=== PATIENT | female | born 1945 | race Caucasian/White ===

== ENCOUNTER → 2018-10-10 08:17 | Outpatient (CLI) | payer MEDICARE, OTHER, SELFPAY ==
--- NOTE | 2018-10-10 08:20 | BI_ITS ---
MAMMOGRAPHY - BILATERAL SCREENING REASON FOR EXAM: Female, 73 years old. Routine annual screening examination. PERTINENT HISTORY: Non-contributory. TECHNIQUE: Digital bilateral breast madi (3D mammographic acquisition) in the CC and MLO projections. 2-D mediolateral oblique (MLO) and craniocaudad (CC) views of both breasts were obtained. CAD: Full Field Digital Mammography with Computer Added Detection was performed. COMPARISON: Comparison is made with prior study dated September 07, 2017 and August 27, 2016. FINDINGS: Breast Composition: The breasts are heterogeneously dense, which may obscure small masses. There are no dominant masses or suspicious calcifications. Stable small bilateral benign appearing axillary lymph nodes. Stable 4.6 mm calcified nodule in the retroareolar region of the left breast. No other significant abnormalities are identified. There has been no significant change since the prior study. BI/SCREENING MAMM (CAD), BILAT IMPRESSION: Stable bilateral screening mammogram. Yearly follow-up mammogram recommended. (A) ASSESSMENT CATEGORY: BIRADS Category 2: Benign. A letter regarding these results will be sent to the patient by the facility within 30 days. Approximately 10% of breast cancers are not detected by mammography. A normal mammogram should not delay biopsy of a clinically suspicious abnormality. [id number] Electronically Signed: Peña Burgess MD at 9:20 EST Tel [phone], Service support ,
--- OUTSIDE RECORDS SUMMARY | 2019-01-11 19:12 | XMS RPT_ITS ---
:1945 Author Organization [facility] Care Team Providers Name Role Phone HUGH YIP Referring Unavailable HUGH YIP Attending Unavailable HUGH YIP Referring Unavailable MILKA WEAVER (ZULMA) Attending Unavailable HUGH YIP Referring Unavailable SAMIR SAHNI ([place]ULMA) Attending Unavailable HUGH YIP Referring Unavailable Joaquin Krause Attending Unavailable Hugh Yip Primary Care Unavailable PROBLEMS PROBLEMS DATE TYPE CONDITION / CODE ATTENDING STATUS SOURCE 09/17/2015 Active Mixed hyperlipidemia NA Active [facility] / E78.2(ICD-10) [facility] [place] Repository 09/17/2015 Active Hypothyroidism, NA Active [facility] unspecified / [facility] [place] E03.9(ICD-10) Repository 09/17/2015 Active Essential (primary) NA Active [facility] hypertension / [facility] [place] I10(ICD-10) Repository PROCEDURES PROCEDURES No Procedure Records FoundRESULTS RESULTS PROGRESS Observed: 10/11/2018 Status: COMPLETED Source: [facility] 10:30 AM [facility] HNO ID: [id number] Author: Samir(Colleen) Bora Service: (none) Author Type: Physician Re Recording Mixer Type: Progress Notes Filed: 10/11/2018 11:49 AM Note Text: Chief Complaint Patient presents with: Recheck: Patient is here 6 month follow up HPI Sheridan Alvarado is a 73 year old female who presents here today for Chronic Medical Conditions.. patient with hx of HTN, hyperlipidemia, hypothyroidism and Migraines. No specific concerns today. Overall doing well. Denies chest pain, shortness of breath, Still gets headaches once every 3-6 months. Depends on stress or sleep patterns. Usually will get relief with OTC. Has imitrex but hasn't used it in long time Past medical history, appointments, medications, allergies reviewed. Previous Medical History PAST MEDICAL HISTORY Diagnosis Date - Acute gastritis - Eczema 04/11/2018 - Elevated blood pressure - Hypothyroidism previously took armor thyroid, stable off medication - Migraine - OBESITY NOS - Osteoporosis intolerant of bisphosphonates - Palpitations 04/08/2010 - Rosacea - Seasonal allergies Previous Surgical History PAST SURGICAL HISTORY Procedure Laterality Date - COLONOSCOP W/ OR W/O BRSH SPEC 11/16/08 repeat due 2018 - EGD W/O OR W/BRUSH/WASH 11/12/99 EGD - FECAL OCCULT BLOOD TEST 03/24/2017 - TONSILLECTOMY HX ~1968 - TOTAL ABDOM HYSTERECTOMY 1986 menorrhagia; 1 ovary intact Family History FAMILY HISTORY Problem Relation Age of Onset - Cancer Father lung, smoker - Alzheimer's Disease Mother - Ischemic Heart Disease Paternal Grandfather - other (guillain barre) Son patient refuses flu shots now Patient Allergies ALLERGIES Allergen Reactions - Sulfa (Sulfonamide * Rash - Boniva [Ibandronate] Other: See Comments Diarrhea, leg cramps - Fosamax [Alendronat* Other: See Comments Leg cramps Current Medications Current Outpatient Prescriptions on File Prior to Visit: CHOLECALCIFEROL (VITAMIN D3) 400 UNIT TAB Take two (2) by mouth once daily. ibuprofen 600 mg ORAL tablet Take 1 tablet by mouth every 6 hours as needed for Pain. magnesium oxide 400 mg cap Take by mouth once daily. propranolol ER (INDERAL LA) 80 mg 24 hr capsule Take 1 capsule by mouth once daily. mometasone (ELOCON) 0.1 % cream Apply to areas twice a day. On for 4 days and off for 3 days. Repeat as needed. SUMAtriptan (IMITREX) 100 mg tablet Take 1 tablet by mouth as directed. START AT ONSET OF HEADACHE. MAY REPEAT DOSE AFTER 2 HOURS. Max of 2 tabs in 24 hrs triamcinolone acetonide (KENALOG) 0.1 % cream Apply 1 application to affected area three times daily. Apply sparingly to area for rash/itching. No current facility-administered medications on file prior to visit. 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 Gardens and walks. Review of Symptoms REVIEW OF SYSTEMS GENERAL: No weight loss, malaise or fevers NECK: Negative for lumps, goiter, pain and significant neck swelling RESPIRATORY: Negative for cough, hemoptysis, wheezing, COPD, dyspnea or shortness of breath CARDIOVASCULAR: Negative for chest pain, leg swelling, CHF or palpitations GI: No nausea, vomiting, or diarrhea and No heartburn or reflux symptoms NEURO: No history of headaches, syncope, paralysis, seizures or tremors EXAM: BP 124/72 Pulse 72 Resp 14 Wt 87.5 kg (193 lb) BMI 33.13 kg/m? Last 4 Encounter Wt Readings: Date: Wt: 10/11/2018 87.5 kg (193 lb) 05/27/2018 87.5 kg (193 lb) 04/11/2018 88.9 kg (196 lb) 09/22/2017 88 kg (194 lb) General Appearance: Well appearing, alert, in no acute distress, well-hydrated, well nourished. obese. Neck: Supple, no adenopathy; thyroid symmetric, normal size, no bruits. Lungs: lungs clear to auscultation. No wheezing, rhonchi, rales. Heart: RRR without murmur, gallop, or rubs. No ectopy. Abdomen: Normal abdominal exam, Abdomen soft, non-tender. Bowel sounds normal. No masses, organomegaly. Extremities: No deformities, edema, skin discoloration, clubbing or cyanosis. Good capillary refill. . Peripheral Pulses: Normal. Health Maintenance List BP CONTROLLED (<130/80) due on 1965 HEPATITIS C SCREENING due on 1991 COLORECTAL CANCER SCREENING,SEE MODIFIER due on 11/16/2018 ANNUAL PCP TEAM CHRONIC DISEASE VISIT due on 04/11/2019 MAMMOGRAM due on 10/10/2019 DIABETES SCREEN due on 10/06/2021 LIPID SCREEN due on 10/06/2023 DTAP,TDAP,TD(3 - Td) due on 09/29/2027 BONE DENSITY Completed ADULT PREVNAR-13 Completed INFLUENZA Completed PNEUMOVAX AGE 65 AND OVER WITH 5YR LOOKBACK Completed Data reviewed Component Latest Ref Rng AND Units 10/06/2018 Protein, Total 6.3 - 8.0 g/dL 6.4 Albumin 3.9 - 4.9 g/dL 4.3 Calcium 8.5 - 10.2 mg/dL 9.4 Bilirubin, Total 0.2 - 1.3 mg/dL 0.5 Alkaline Phosphatase 34 - 123 U/L 68 AST 13 - 35 U/L 20 Glucose 74 - 99 mg/dL 92 BUN 7 - 21 mg/dL 18 Creatinine 0.58 - 0.96 mg/dL 0.64 Sodium 136 - 144 mmol/L 141 Potassium 3.7 - 5.1 mmol/L 4.1 Chloride 97 - 105 mmol/L 102 CO2 22 - 30 mmol/L 29 Anion Gap 9 - 18 mmol/L 10 ALT 7 - 38 U/L 18 eGFR- >60 eGFR-All Other Races . >60 Color Yellow Yellow Clarity Clear Cloudy (A) Glucose, Urine Negative mg/dL Negative Bilirubin, Urine Negative Negative Ketones, Urine Negative Negative Specific [place], Ur 1.005 - 1.030 1.020 Hemoglobin/Blood,Ur Negative Negative pH, Urine 4.5 - 8.0 6.0 Protein, Urine Negative mg/dL 30 (A) Urobilinogen Normal Normal Nitrites Negative Negative Leukest Negative 3+ (A) Comments SEE COMMENT Urine Neo Comment SEE COMMENT WBC, Urine 0 - 5 /HPF 6-10 (A) RBC, Urine 0 - 3 /HPF 0-3 Epithelial Cells /HPF SEE COMMENT Cholesterol, Total <200 mg/dL 195 Triglyceride <150 mg/dL 71 HDL Cholesterol >39 mg/dL 66 LDL Cholesterol <100 mg/dL 115 (H) Non HDL Cholesterol <130 mg/dL 129 Fasting Time hrs 12 VLDL Cholesterol <30 mg/dL 14 TC:HDL Ratio <5.10 2.95 LDL:HDL Ratio <2.54 1.74 TSH 0.400 - 5.500 uU/mL 3.230 ASSESSMENT/PLAN: 1. Essential hypertension - ICD9: 401.9, ICD10: I10 (primary diagnosis) - good control - Continue current medication(s) - Recommended regular aerobic exercise. - Recommend home blood pressure monitoring, to bring results in on next visit - Goal of BP <130/80 2. Hypothyroidism (acquired) - ICD9: 244.9, ICD10: E03.9 Patient has been euthyroid for years without medication. - LIPID PANEL BASIC 3. Mixed hyperlipidemia - ICD9: 272.2, ICD10: E78.2 - good control - Encouraged following a low carbohydrate, healthy oil intake diet. - Continue current therapy. - LIPID PANEL BASIC 4. Migraine without aura and without status migrainosus, not intractable - ICD9: 346.10, ICD10: G43.009 stable 5. Class 1 obesity due to excess calories without serious comorbidity with body mass index (BMI) of 33.0 to 33.9 in adult - ICD9: 278.00, V85.33, ICD10: E66.09, Z68.33 Follow up in 6 months for physical Return sooner as needed. SAMIR SAHNI PA-C CNOV Observed: 10/11/2018 Status: COMPLETED Source: [facility] 10:20 AM [facility] REPOSITORY Office Visit (FAMPWS) SHERIDAN ALVARADO ([id number]) 1945 F Date Time Provider Department 10/11/18 10:20 AM АЛЕКСАНДР SAHNI) FAMYelenaWS During your visit today, we recorded the following information about you: Pulse Respiration Blood pressure Weight 72/minute 14/minute 124/72 87.5 kg SAMIR SAHNI PA-C 10/11/2018 11:49 AM Signed Chief Complaint Patient presents with: Recheck: Patient is here 6 month follow up HPI Sheridan Alvarado is a 73 year old female who presents here today for Chronic Medical Conditions.. patient with hx of HTN, hyperlipidemia, hypothyroidism and Migraines. No specific concerns today. Overall doing well. Denies chest pain, shortness of breath, Still gets headaches once every 3-6 months. Depends on stress or sleep patterns. Usually will get relief with OTC. Has imitrex but hasn't used it in long time Past medical history, appointments, medications, allergies reviewed. Previous Medical History PAST MEDICAL HISTORY Diagnosis Date - Acute gastritis - Eczema 04/11/2018 - Elevated blood pressure - Hypothyroidism previously took armor thyroid, stable off medication - Migraine - OBESITY NOS - Osteoporosis intolerant of bisphosphonates - Palpitations 04/08/2010 - Rosacea - Seasonal allergies Previous Surgical History PAST SURGICAL HISTORY Procedure Laterality Date - COLONOSCOP W/ OR W/O BRSH SPEC 11/16/08 repeat due 2018 - EGD W/O OR W/BRUSH/WASH 11/12/99 EGD - FECAL OCCULT BLOOD TEST 03/24/2017 - TONSILLECTOMY HX ~1968 - TOTAL ABDOM HYSTERECTOMY 1986 menorrhagia; 1 ovary intact Family History FAMILY HISTORY Problem Relation Age of Onset - Cancer Father lung, smoker - Alzheimer's Disease Mother - Ischemic Heart Disease Paternal Grandfather - other (guillain barre) Son patient refuses flu shots now Patient Allergies ALLERGIES Allergen Reactions - Sulfa (Sulfonamide * Rash - Boniva [Ibandronate] Other: See Comments Diarrhea, leg cramps - Fosamax [Alendronat* Other: See Comments Leg cramps Current Medications Current Outpatient Prescriptions on File Prior to Visit: CHOLECALCIFEROL (VITAMIN D3) 400 UNIT TAB Take two (2) by mouth once daily. ibuprofen 600 mg ORAL tablet Take 1 tablet by mouth every 6 hours as needed for Pain. magnesium oxide 400 mg cap Take by mouth once daily. propranolol ER (INDERAL LA) 80 mg 24 hr capsule Take 1 capsule by mouth once daily. mometasone (ELOCON) 0.1 % cream Apply to areas twice a day. On for 4 days and off for 3 days. Repeat as needed. SUMAtriptan (IMITREX) 100 mg tablet Take 1 tablet by mouth as directed. START AT ONSET OF HEADACHE. MAY REPEAT DOSE AFTER 2 HOURS. Max of 2 tabs in 24 hrs triamcinolone acetonide (KENALOG) 0.1 % cream Apply 1 application to affected area three times daily. Apply sparingly to area for rash/itching. No current facility-administered medications on file prior to visit. 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 Gardens and walks. Review of Symptoms REVIEW OF SYSTEMS GENERAL: No weight loss, malaise or fevers NECK: Negative for lumps, goiter, pain and significant neck swelling RESPIRATORY: Negative for cough, hemoptysis, wheezing, COPD, dyspnea or shortness of breath CARDIOVASCULAR: Negative for chest pain, leg swelling, CHF or palpitations GI: No nausea, vomiting, or diarrhea and No heartburn or reflux symptoms NEURO: No history of headaches, syncope, paralysis, seizures or tremors EXAM: BP 124/72 Pulse 72 Resp 14 Wt 87.5 kg (193 lb) BMI 33.13 kg/m? Last 4 Encounter Wt Readings: Date: Wt: 10/11/2018 87.5 kg (193 lb) 05/27/2018 87.5 kg (193 lb) 04/11/2018 88.9 kg (196 lb) 09/22/2017 88 kg (194 lb) General Appearance: Well appearing, alert, in no acute distress, well-hydrated, well nourished. obese. Neck: Supple, no adenopathy; thyroid symmetric, normal size, no bruits. Lungs: lungs clear to auscultation. No wheezing, rhonchi, rales. Heart: RRR without murmur, gallop, or rubs. No ectopy. Abdomen: Normal abdominal exam, Abdomen soft, non-tender. Bowel sounds normal. No masses, organomegaly. Extremities: No deformities, edema, skin discoloration, clubbing or cyanosis. Good capillary refill. . Peripheral Pulses: Normal. Health Maintenance List BP CONTROLLED (<130/80) due on 1965 HEPATITIS C SCREENING due on 1991 COLORECTAL CANCER SCREENING,SEE MODIFIER due on 11/16/2018 ANNUAL PCP TEAM CHRONIC DISEASE VISIT due on 04/11/2019 MAMMOGRAM due on 10/10/2019 DIABETES SCREEN due on 10/06/2021 LIPID SCREEN due on 10/06/2023 DTAP,TDAP,TD(3 - Td) due on 09/29/2027 BONE DENSITY Completed ADULT PREVNAR-13 Completed INFLUENZA Completed PNEUMOVAX AGE 65 AND OVER WITH 5YR LOOKBACK Completed Data reviewed Component Latest Ref Rng AND Units 10/06/2018 Protein, Total 6.3 - 8.0 g/dL 6.4 Albumin 3.9 - 4.9 g/dL 4.3 Calcium 8.5 - 10.2 mg/dL 9.4 Bilirubin, Total 0.2 - 1.3 mg/dL 0.5 Alkaline Phosphatase 34 - 123 U/L 68 AST 13 - 35 U/L 20 Glucose 74 - 99 mg/dL 92 BUN 7 - 21 mg/dL 18 Creatinine 0.58 - 0.96 mg/dL 0.64 Sodium 136 - 144 mmol/L 141 Potassium 3.7 - 5.1 mmol/L 4.1 Chloride 97 - 105 mmol/L 102 CO2 22 - 30 mmol/L 29 Anion Gap 9 - 18 mmol/L 10 ALT 7 - 38 U/L 18 eGFR- >60 eGFR-All Other Races . >60 Color Yellow Yellow Clarity Clear Cloudy (A) Glucose, Urine Negative mg/dL Negative Bilirubin, Urine Negative Negative Ketones, Urine Negative Negative Specific [place], Ur 1.005 - 1.030 1.020 Hemoglobin/Blood,Ur Negative Negative pH, Urine 4.5 - 8.0 6.0 Protein, Urine Negative mg/dL 30 (A) Urobilinogen Normal Normal Nitrites Negative Negative Leukest Negative 3+ (A) Comments SEE COMMENT Urine Neo Comment SEE COMMENT WBC, Urine 0 - 5 /HPF 6-10 (A) RBC, Urine 0 - 3 /HPF 0-3 Epithelial Cells /HPF SEE COMMENT Cholesterol, Total <200 mg/dL 195 Triglyceride <150 mg/dL 71 HDL Cholesterol >39 mg/dL 66 LDL Cholesterol <100 mg/dL 115 (H) Non HDL Cholesterol <130 mg/dL 129 Fasting Time hrs 12 VLDL Cholesterol <30 mg/dL 14 TC:HDL Ratio <5.10 2.95 LDL:HDL Ratio <2.54 1.74 TSH 0.400 - 5.500 uU/mL 3.230 ASSESSMENT/PLAN: 1. Essential hypertension - ICD9: 401.9, ICD10: I10 (primary diagnosis) - good control - Continue current medication(s) - Recommended regular aerobic exercise. - Recommend home blood pressure monitoring, to bring results in on next visit - Goal of BP <130/80 2. Hypothyroidism (acquired) - ICD9: 244.9, ICD10: E03.9 Patient has been euthyroid for years without medication. - LIPID PANEL BASIC 3. Mixed hyperlipidemia - ICD9: 272.2, ICD10: E78.2 - good control - Encouraged following a low carbohydrate, healthy oil intake diet. - Continue current therapy. - LIPID PANEL BASIC 4. Migraine without aura and without status migrainosus, not intractable - ICD9: 346.10, ICD10: G43.009 stable 5. Class 1 obesity due to excess calories without serious comorbidity with body mass index (BMI) of 33.0 to 33.9 in adult - ICD9: 278.00, V85.33, ICD10: E66.09, Z68.33 Follow up in 6 months for physical Return sooner as needed. COLLEEN MURPHY PA-C 10/11/2018 10:49 AM Signed Follow up in 6 months for physical Please get fasting cholesterol labs prior. Return sooner as needed. Referring Provider: HUGH YIP [[id number]] Allergies As of Date: 10/11/2018 Noted Allergy Reaction SULFA (SULFONAMIDE ANTIBIOTICS) 06/23/2005 2 - Rash BONIVA (IBANDRONATE) 10/22/2011 14 - Other: See Comments Comments: Diarrhea, leg cramps FOSAMAX (ALENDRONATE SODIUM) 10/22/2011 14 - Other: See Comments Comments: Leg cramps Date Reviewed: 10/11/2018 Reviewed by: Agustin Sahni - Fully Assessed Reason for Visit: Recheck [92] Cmt: Patient is here 6 month follow up Primary Visit Diagnosis:Essential hypertension [I10] Other Visit Diagnoses:Hypothyroidism (acquired) [E03.9] Mixed hyperlipidemia [E78.2] Migraine without aura and without status migrainosus, not intractable [G43.009] Class 1 obesity due to excess calories without serious comorbidity with body mass index (BMI) of 33.0 to 33.9 in adult [E66.09, Z68.33] Order(s):propranolol ER (INDERAL LA) 80 mg 24 hr capsuleTake 1 capsule by mouth once daily.Disp: 90 capsuleRfl: 3 LIPID PANEL BASIC [SQLIPB] Order #: [id number] FUTURE Prescriptions as of 10/11/2018 Sig: * CHOLECALCIFEROL (VITAMIN D3) * Take two (2) by mouth once da* * IBUPROFEN 600 MG TABLET Take 1 tablet by mouth every * MAGNESIUM OXIDE 400 MG CAPSULE Take by mouth once daily. PROPRANOLOL ER 80 MG CAPSULE,* Take 1 capsule by mouth once * SUMATRIPTAN 100 MG TABLET Take 1 tablet by mouth as dir* Problem List As Of Date 10/11/2018 Noted Resolved COMMON MIGRAINE [346.1] INVALID FOR*01/13/2008 Rosacea [L71.9] INVALID FOR* More... More... Osteoporosis, unspecified [M81.0] INVALID FOR* Unspecified sinusitis (chronic) [J32.9] INVALID FOR*10/22/2011 Diarrhea [R19.7] INVALID FOR*10/22/2011 Foot pain, right [M79.671] INVALID FOR*06/22/2012 Essential hypertension [I10] INVALID FOR* Hypothyroidism (acquired) [E03.9] INVALID FOR* Mixed hyperlipidemia [E78.2] INVALID FOR* Migraine without aura and without status migrai*INVALID FOR* Colon cancer screening [Z12.11] INVALID FOR* Well adult exam [Z00.00] INVALID FOR* More... Medicare annual wellness visit, subsequent [Z00*INVALID FOR* More... Class 1 obesity due to excess calories without *INVALID FOR* Eczema [L30.9] INVALID FOR* Other instructions from your clinician: Follow up in 6 months for physical Please get fasting cholesterol labs prior. Return sooner as needed. Prescriptions ordered this encounter Disp Refills Start End PROPRANOLOL ER 80 MG CAPSULE,24 HR,E* 90 c* 3 10/11/2018 Class: Print RX Route: ORAL Sig: Take 1 capsule by mouth once daily. Medications Discontinued During This Encounter mometasone (ELOCON) 0.1 % cream 15 g 1 04/11/2018 10/11/2018 Sig: Apply to areas twice a day. On for 4 days and off for 3 days. Repeat as needed. Disc: Reason for discontinue is not on file. triamcinolone acetonide (KENALOG) 0.* 80 g 0 05/27/2018 10/11/2018 Route: TOPICAL Sig: Apply 1 application to affected area three times daily. Apply sparingly to area for rash/itching. Disc: Reason for discontinue is not on file. propranolol ER (INDERAL LA) 80 mg 24* 90 c* 3 09/22/2017 10/11/2018 Class: Print RX Route: ORAL Sig: Take 1 capsule by mouth once daily. Disc: Reason for discontinue is not on file. Disposition: Return in about 6 months (around 04/11/2019) for Medicare Physical. Follow-up and Disposition History Recorded Encounter Status:Closed by SAMIR ROCHA on 10/11/18 SCREENING MAMM (CAD), Observed: 10/10/2018 Status: F Source: MAYUR MUNOZ 8:20 AM [facility] REPOSITORY [facility] Imaging Services [address] [place] [address] SCREENING MAMM (CAD), BILAT MR#: [id number] Acct: [id number] Name: SHERIDAN ALVARADO Rep #: [id number] : 1945 F 73 From: Peña Burgess MD PCP: Hugh Yip MD Status: REG CLI Study: SCREENING MAMM (CAD), BILAT Date of Exam: 10/10/18 Exam# [id number] Ordering Dr: Joaquin Krause MD MAMMOGRAPHY - BILATERAL SCREENING REASON FOR EXAM: Female, 73 years old. Routine annual screening examination. PERTINENT HISTORY: Non-contributory. TECHNIQUE: Digital bilateral breast madi (3D mammographic acquisition) in the CC and MLO projections. 2-D mediolateral oblique (MLO) and craniocaudad (CC) views of both breasts were obtained. CAD: Full Field Digital Mammography with Computer Added Detection was performed. COMPARISON: Comparison is made with prior study dated September 07, 2017 and August 27, 2016. FINDINGS: Breast Composition: The breasts are heterogeneously dense, which may obscure small masses. There are no dominant masses or suspicious calcifications. Stable small bilateral benign appearing axillary lymph nodes. Stable 4.6 mm calcified nodule in the retroareolar region of the left breast. No other significant abnormalities are identified. There has been no significant change since the prior study. BI/SCREENING MAMM (CAD), BILAT IMPRESSION: Stable bilateral screening mammogram. Yearly follow-up mammogram recommended. (A) ASSESSMENT CATEGORY: BIRADS Category 2: Benign. A letter regarding these results will be sent to the patient by the facility within 30 days. Approximately 10% of breast cancers are not detected by mammography. A normal mammogram should not delay biopsy of a clinically suspicious abnormality. [id number] Electronically Signed: Peña Burgess MD at 9:20 EST Tel [phone], Service support , CC: Hugh Yip MD; Joaquin Krause MD Preschool Teacher'S Assistant: Signed COMP METABOLIC PANEL Collected: 10/06/2018 Status: F Source: [facility] 8:34 AM [facility] REPOSITORY TYPE CODE TESTS RESULT OUT OF REFERENCE UNITS RANGE LAB TP 6.3-8.0 g/dL Protein, Total 6.4 LAB ALB 3.9-4.9 g/dL Albumin 4.3 LAB CA 8.5-10.2 mg/dL Calcium, Total 9.4 LAB TBIL 0.2-1.3 mg/dL Bilirubin, Total 0.5 LAB ALKP 34-123 U/L Alkaline Phosphatase 68 LAB AST 13-35 U/L AST 20 LAB GLU 74-99 mg/dL Glucose 92 Result Comment: The [place] Diabetes Association (ADA) provides guidance for cutoff values for fasting glucose and random glucose. The ADA defines fasting as no caloric intake for at least 8 hours. Fas ting plasma glucose results between 100 to 125 mg/dL indicate increased risk for diabetes (prediabetes). Fasting plasma glucose results greater than or equal to 126 mg/dL meet the criteria for diagnosis of diabetes. In the absence of unequivocal hyperglycemia, results should be confirmed by repeat testing. In a patient with classic symptoms of hyperglycemia or hyperglycemic crisis, random plasma glucose results greater than or equal to 200 mg/dL meet the criteria for diagnosis of diabetes. Reference: Standards of Medical Care in Diabetes 2016, [place] [employer] Association. Diabetes Care. 2016.39(Suppl 1). LAB BUN 7-21 mg/dL BUN 18 LAB CRET 0.58-0.96 mg/dL Creatinine 0.64 LAB NA 136-144 mmol/L Sodium 141 LAB K 3.7-5.1 mmol/L Potassium 4.1 LAB CL 97-105 mmol/L Chloride 102 LAB CO2 22-30 mmol/L CO2 29 LAB AGAP 9-18 mmol/L Anion Gap 10 LAB ALT 7-38 U/L ALT 18 LAB GFRAA eGFR- Amer. >60 LAB GFRNAA . eGFR-All Other Races >60 Result Comment: eGFR (Estimated GFR) Units of measure: mL/min/1.73 meters squared eGFR is derived from the reexpressed MDRD Study equation using the following parameters: serum creatinine, age, gender and race. The creatinine assay has been calibrated to be traceable to IDMS. An eGFR <60 mL/min/1.73m2 for >3 months is consistent with chronic kidney disease. Refer to KDOQI guidelines for clinical interpretation. In patients with unstable renal function, e.g. those with acute kidney injury, the eGFR may not accurately reflect actual GFR. Performed By: #### CMP, LIPB, TSH #### [facility] [address] [place], [place] [address] LIPID PANEL, BASIC Collected: 10/06/2018 Status: F Source: [facility] 8:34 AM [facility] REPOSITORY TYPE CODE TESTS RESULT OUT OF REFERENCE UNITS RANGE LAB CHOL <200 mg/dL Cholesterol 195 Result Comment: <200 mg/dL, Desirable 200-239 mg/dL, Borderline high >239 mg/dL, High LAB TRIGLY <150 mg/dL Triglyceride 71 Result Comment: <150 mg/dL, Normal 150-199 mg/dL, Borderline high 200-499 mg/dL, High >499 mg/dL, Very high LAB HDL >39 mg/dL HDL-Cholesterol 66 Result Comment: 40-59 mg/dL, Acceptable >59 mg/dL, High: Negative risk factor for coronary heart disease <40 mg/dL, Low: Positive risk factor for coronary heart disease LAB LDL <100 mg/dL LDL-Cholesterol High 115 Result Comment: <100 mg/dL, Optimal 100-129 mg/dL, Near optimal/above optimal 130-159 mg/dL, Borderline high 160-189 mg/dL, High >189 mg/dL, Very high Secondary prevention optimal LDL Cholesterol levels are recommended to be < 70 mg/dL LAB NONHDL <130 mg/dL Non HDL Cholesterol 129 Result Comment: <130 mg/dL, Optimal 130-159 mg/dL, Near optimal/above optimal 160-189 mg/dL, Borderline high 190-219 mg/dL, High >219 mg/dL, Very high Secondary prevention optimal non HDL Cholesterol levels are recommended to be < 100 mg/dL LAB FT hrs Fasting Time 12 LAB VLDL <30 mg/dL VLDL Cholesterol 14 LAB TCHDL <5.10 TC:HDL Ratio 2.95 LAB LDLHDL <2.54 LDL:HDL Ratio 1.74 Result Comment: Reference: 1. National Cholesterol Education Program ATP III Guideline At-A-Glance Quick Desk Reference: National Heart, Lung, and Blood [place]. National Institutes of Health. 2001: NIH Publication No. 01-3305. 2. An International Atherosclerosis Society position paper: global recommendations for the management of dyslipidemia: executive summary, Atherosclerosis. 2014: 232(2):410-413. Performed By: #### CMP, LIPB, TSH #### [facility] [address] [address] TSH Collected: 10/06/2018 Status: F Source: [place] 8:34 AM [facility] REPOSITORY TYPE CODE TESTS RESULT OUT OF RANGE REFERENCE UNITS LAB TSH 0.400-5.500 uU/mL TSH 3.230 Performed By: #### CMP, LIPB, TSH #### [facility] [address] [address] URINALYSIS WITH Collected: 10/06/2018 Status: F Source: [place] 8:27 AM [facility] REPOSITORY TYPE CODE TESTS RESULT OUT OF RANGE REFERENCE UNITS LAB UCOL Yellow Color Yellow LAB [facility] Clear Clarity Abnormal Cloudy Alert LAB UGLUC Negative mg/dL Glucose, Urine Negative LAB UBIL Negative Bilirubin, Urine Negative LAB UKET Negative Ketones, Urine Negative LAB USPG 1.005-1.030 Specific [place], Ur 1.020 LAB UHGB Negative Hemoglobin/Blood, Negative Ur LAB UPH 4.5-8.0 pH 6.0 LAB UPROT Negative mg/dL Protein, Abnormal Urine 30 Alert LAB UUROB Normal Urobilinogen Normal LAB UNITR Negative Nitrites Negative LAB ULKEST Negative Leukest Abnormal 3+ Alert LAB UCOM Comments SEE COMMENT Result Comment: N/A LAB UMCOM Urine SEE Neo Comment COMMENT Result Comment: N/A LAB UWBC 0-5 /HPF Abnormal WBC Alert 6-10 LAB URBC 0-3 /HPF RBC 0-3 LAB UEPI /HPF Epithelial Cells SEE COMMENT Result Comment: Moderate Squamous Epithelial Cells Performed By: #### UAWMIC #### [facility] [address] [place], [place] [address] PROGRESS Observed: 05/27/2018 Status: COMPLETED Source: [place] 8:52 PM [facility] REPOSITORY HNO ID: [id number] Author: Milka Weaver Service: (none) Author Type: Nurse Practitioner Type: Progress Notes Filed: 05/27/2018 8:56 PM Note Text: Subjective HPI HPI Sheridan Alvarado is a 72 year old female who presents today for CC of multiple hornet stings. This started 45 minutes ago. Has tried nothing. Symptoms are worsened by nothing. Risk factors no reaction in history. Denies cp/sob. .Patient presents with: Insect Bite PAST MEDICAL HISTORY Diagnosis Date - Acute gastritis - Eczema 04/11/2018 - Elevated blood pressure - Hypothyroidism previously took armor thyroid, stable off medication - Migraine - OBESITY NOS - Osteoporosis intolerant of bisphosphonates - Palpitations 04/08/2010 - Rosacea - Seasonal allergies PAST SURGICAL HISTORY Procedure Laterality Date - COLONOSCOP W/ OR W/O BRSH SPEC 11/16/08 repeat due 2018 - EGD W/O OR W/BRUSH/WASH 11/12/99 EGD - FECAL OCCULT BLOOD TEST 03/24/2017 - TONSILLECTOMY HX ~1967 - TOTAL ABDOM HYSTERECTOMY 1986 menorrhagia; 1 ovary intact ALLERGIES Sulfa (Sulfonamide Antibiotics); Boniva [Ibandronate]; Fosamax [Alendronate Sodium] MEDICATIONS mometasone (ELOCON) 0.1 % cream Apply to areas twice a day. On for 4 days and off for 3 days. Repeat as needed. propranolol ER (INDERAL LA) 80 mg 24 hr capsule Take 1 capsule by mouth once daily. SUMAtriptan (IMITREX) 100 mg tablet Take 1 tablet by mouth as directed. START AT ONSET OF HEADACHE. MAY REPEAT DOSE AFTER 2 HOURS. Max of 2 tabs in 24 hrs magnesium oxide 400 mg cap Take by mouth once daily. ibuprofen 600 mg ORAL tablet Take 1 tablet by mouth every 6 hours as needed for Pain. CHOLECALCIFEROL (VITAMIN D3) 400 UNIT TAB Take two (2) by mouth once daily. methylPREDNISolone (MEDROL, FELICITA,) 4 mg Dose-Pack Follow dosing instructions, take with food. triamcinolone acetonide (KENALOG) 0.1 % cream Apply 1 application to affected area three times daily. Apply sparingly to area for rash/itching. FAMILY HISTORY Problem Relation Age of Onset - Cancer Father lung, smoker - Alzheimer's Disease Mother - Ischemic Heart Disease Paternal Grandfather - guillain barre [OTHER] Son patient refuses flu shots now Social History Substance Use Topics - Smoking status: Never Smoker - Smokeless tobacco: Never Used - Alcohol use No Review of Systems Constitutional: Negative for chills and fever. Respiratory: Negative for cough, shortness of breath and wheezing. Cardiovascular: Negative for chest pain. Skin: Positive for itching. Negative for rash. Objective Blood pressure 138/80, pulse 97, temperature 36.4 ?C (97.6 ?F), temperature source Left Tympanic, weight 87.5 kg (193 lb), SpO2 97 %. Physical Exam Constitutional: She is oriented to person, place, and time and well-developed, well-nourished, and in no distress. Non-toxic appearance. She does not have a sickly appearance. No distress. HENT: Head: Normocephalic and atraumatic. Cardiovascular: Normal rate, regular rhythm, S1 normal, S2 normal and normal heart sounds. Pulses: Radial pulses are 2+ on the right side, and 2+ on the left side. Pulmonary/Chest: Effort normal and breath sounds normal. Neurological: She is alert and oriented to person, place, and time. Gait normal. Skin: She is not diaphoretic. ASSESSMENT/PLAN: 1. Insect stings, undetermined intent, initial encounter - ICD9: 989.5, E980.9, ICD10: T63.484A -no sign of anaphylactic reaction at this time -use medication as prescribed -follow up if symptoms persist, worsen, change -If you experience chest pain/shortness of breath go to ER - METHYLPREDNISOLONE 4 MG TABLETS IN A DOSE PACK - TRIAMCINOLONE ACETONIDE 0.1 % TOPICAL CREAM Prescription instructions reviewed with patient as applicable. Patient advised if symptoms do not improve or if symptoms worsen sooner, to contact the office for further evaluation by their primary care physician. Potential red flag symptoms discussed with the patient. Reviewed appropriate action plan to take if red flag symptoms occur. Patient agreeable to treatment plan. Milka Weaver APRN.COMMERCIAL CARPET INSTALLER CNOV Observed: 05/27/2018 Status: COMPLETED Source: [place] 8:00 PM [facility] REPOSITORY Office Visit (UCWSTR) SHERIDAN ALVARADO ([id number]) 1945 F Date Time Provider Department 05/27/18 8:00 PM MILKA WEAVER (MELY) WSTR During your visit today, we recorded the following information about you: Temperature Pulse Blood pressure Weight 97.6 degrees 97/minute 138/80 87.5 kg Milka Weaver APRN.CNP 05/27/2018 8:17 PM Signed ASSESSMENT/PLAN: 1. Insect stings, undetermined intent, initial encounter - ICD9: 989.5, E980.9, ICD10: T63.484A -use medication as prescribed -follow up if symptoms persist, worsen, change - METHYLPREDNISOLONE 4 MG TABLETS IN A DOSE PACK - TRIAMCINOLONE ACETONIDE 0.1 % TOPICAL CREAM Milka Weaver APRN.CNP 05/27/2018 8:56 PM Signed Subjective HPI HPI Sheridanstepan Alvarado is a 72 year old female who presents today for CC of multiple hornet stings. This started 45 minutes ago. Has tried nothing. Symptoms are worsened by nothing. Risk factors no reaction in history. Denies cp/sob. .Patient presents with: Insect Bite PAST MEDICAL HISTORY Diagnosis Date - Acute gastritis - Eczema 04/11/2018 - Elevated blood pressure - Hypothyroidism previously took armor thyroid, stable off medication - Migraine - OBESITY NOS - Osteoporosis intolerant of bisphosphonates - Palpitations 04/08/2010 - Rosacea - Seasonal allergies PAST SURGICAL HISTORY Procedure Laterality Date - COLONOSCOP W/ OR W/O BRSH SPEC 11/16/08 repeat due 2018 - EGD W/O OR W/BRUSH/WASH 11/12/99 EGD - FECAL OCCULT BLOOD TEST 03/24/2017 - TONSILLECTOMY HX ~1968 - TOTAL ABDOM HYSTERECTOMY 1986 menorrhagia; 1 ovary intact ALLERGIES Sulfa (Sulfonamide Antibiotics); Boniva [Ibandronate]; Fosamax [Alendronate Sodium] MEDICATIONS mometasone (ELOCON) 0.1 % cream Apply to areas twice a day. On for 4 days and off for 3 days. Repeat as needed. propranolol ER (INDERAL LA) 80 mg 24 hr capsule Take 1 capsule by mouth once daily. SUMAtriptan (IMITREX) 100 mg tablet Take 1 tablet by mouth as directed. START AT ONSET OF HEADACHE. MAY REPEAT DOSE AFTER 2 HOURS. Max of 2 tabs in 24 hrs magnesium oxide 400 mg cap Take by mouth once daily. ibuprofen 600 mg ORAL tablet Take 1 tablet by mouth every 6 hours as needed for Pain. CHOLECALCIFEROL (VITAMIN D3) 400 UNIT TAB Take two (2) by mouth once daily. methylPREDNISolone (MEDROL, FELICITA,) 4 mg Dose-Pack Follow dosing instructions, take with food. triamcinolone acetonide (KENALOG) 0.1 % cream Apply 1 application to affected area three times daily. Apply sparingly to area for rash/itching. FAMILY HISTORY Problem Relation Age of Onset - Cancer Father lung, smoker - Alzheimer's Disease Mother - Ischemic Heart Disease Paternal Grandfather - guillain barre [OTHER] Son patient refuses flu shots now Social History Substance Use Topics - Smoking status: Never Smoker - Smokeless tobacco: Never Used - Alcohol use No Review of Systems Constitutional: Negative for chills and fever. Respiratory: Negative for cough, shortness of breath and wheezing. Cardiovascular: Negative for chest pain. Skin: Positive for itching. Negative for rash. Objective Blood pressure 138/80, pulse 97, temperature 36.4 ?C (97.6 ?F), temperature source Left Tympanic, weight 87.5 kg (193 lb), SpO2 97 %. Physical Exam Constitutional: She is oriented to person, place, and time and well-developed, well-nourished, and in no distress. Non-toxic appearance. She does not have a sickly appearance. No distress. HENT: Head: Normocephalic and atraumatic. Cardiovascular: Normal rate, regular rhythm, S1 normal, S2 normal and normal heart sounds. Pulses: Radial pulses are 2+ on the right side, and 2+ on the left side. Pulmonary/Chest: Effort normal and breath sounds normal. Neurological: She is alert and oriented to person, place, and time. Gait normal. Skin: She is not diaphoretic. ASSESSMENT/PLAN: 1. Insect stings, undetermined intent, initial encounter - ICD9: 989.5, E980.9, ICD10: T63.484A -no sign of anaphylactic reaction at this time -use medication as prescribed -follow up if symptoms persist, worsen, change -If you experience chest pain/shortness of breath go to ER - METHYLPREDNISOLONE 4 MG TABLETS IN A DOSE PACK - TRIAMCINOLONE ACETONIDE 0.1 % TOPICAL CREAM Prescription instructions reviewed with patient as applicable. Patient advised if symptoms do not improve or if symptoms worsen sooner, to contact the office for further evaluation by their primary care physician. Potential red flag symptoms discussed with the patient. Reviewed appropriate action plan to take if red flag symptoms occur. Patient agreeable to treatment plan. Milka Weaver APRN.COMMERCIAL CARPET INSTALLER Referring Provider: SELF [[id number]] Allergies As of Date: 05/27/2018 Noted Allergy Reaction SULFA (SULFONAMIDE ANTIBIOTICS) 06/23/2005 2 - Rash BONIVA (IBANDRONATE) 10/22/2011 14 - Other: See Comments Comments: Diarrhea, leg cramps FOSAMAX (ALENDRONATE SODIUM) 10/22/2011 14 - Other: See Comments Comments: Leg cramps Date Reviewed: 05/27/2018 Reviewed by: Milka ([facility]) - Fully Assessed Reason for Visit: Insect Bite [929] Primary Visit Diagnosis:Insect stings, undetermined intent, initial encounter [T63.484A] Order(s):methylPREDNISolone (MEDROL, FELICITA,) 4 mg Dose-PackFollow dosing instructions, take with food.Disp: 1 PackageRfl: 0 triamcinolone acetonide (KENALOG) 0.1 % creamApply 1 application to affected area three times daily. Apply sparingly to area for rash/itching.Disp: 80 gRfl: 0 Prescriptions as of 05/27/2018 Sig: MOMETASONE 0.1 % TOPICAL CREAM Apply to areas twice a day. * PROPRANOLOL ER 80 MG CAPSULE,* Take 1 capsule by mouth once * SUMATRIPTAN 100 MG TABLET Take 1 tablet by mouth as dir* MAGNESIUM OXIDE 400 MG CAPSULE Take by mouth once daily. * IBUPROFEN 600 MG TABLET Take 1 tablet by mouth every * * CHOLECALCIFEROL (VITAMIN D3) * Take two (2) by mouth once da* METHYLPREDNISOLONE 4 MG TABLE* Follow dosing instructions, t* TRIAMCINOLONE ACETONIDE 0.1 %* Apply 1 application to affect* Problem List As Of Date 05/27/2018 Noted Resolved COMMON MIGRAINE [346.1] INVALID FOR*01/13/2008 Rosacea [L71.9] INVALID FOR* Priority: D More... More... Osteoporosis, unspecified [M81.0] INVALID FOR* Priority: M Unspecified sinusitis (chronic) [J32.9] INVALID FOR*10/22/2011 Diarrhea [R19.7] INVALID FOR*10/22/2011 Foot pain, right [M79.671] INVALID FOR*06/22/2012 Essential hypertension [I10] INVALID FOR* Priority: A Hypothyroidism (acquired) [E03.9] INVALID FOR* Priority: A Mixed hyperlipidemia [E78.2] INVALID FOR* Priority: A Migraine without aura and without status migrai*INVALID FOR* Priority: A Colon cancer screening [Z12.11] INVALID FOR* Well adult exam [Z00.00] INVALID FOR* Priority: E More... Medicare annual wellness visit, subsequent [Z00*INVALID FOR* Priority: E More... Class 1 obesity due to excess calories without *INVALID FOR* Priority: B Eczema [L30.9] INVALID FOR* Priority: D Other instructions from your clinician: ASSESSMENT/PLAN: 1. Insect stings, undetermined intent, initial encounter - ICD9: 989.5, E980.9, ICD10: T63.484A -use medication as prescribed -follow up if symptoms persist, worsen, change - METHYLPREDNISOLONE 4 MG TABLETS IN A DOSE PACK - TRIAMCINOLONE ACETONIDE 0.1 % TOPICAL CREAM Prescriptions ordered this encounter Disp Refills Start End METHYLPREDNISOLONE 4 MG TABLETS IN A* 1 Pa* 0 05/27/2018 06/02/2018 Sig: Follow dosing instructions, take with food. TRIAMCINOLONE ACETONIDE 0.1 % TOPICA* 80 g 0 05/27/2018 Route: TOPICAL Sig: Apply 1 application to affected area three times daily. Apply sparingly to area for rash/itching. Encounter Status:Closed by MILKA WEAVER CNP on 05/27/18 PROGRESS Observed: 04/11/2018 Status: COMPLETED Source: [place] 10:51 AM [facility] [place] REPOSITORY HNO ID: [id number] Author: Hugh Yip Service: (none) Author Type: Physician Type: Progress Notes Filed: 04/11/2018 8:28 PM Note Text: Medicare Yearly Visit Medical B eligibilty date 05/25/2012 Date of last exam 03/17/2017 PAST MEDICAL HISTORY Diagnosis Date - Acute gastritis - Elevated blood pressure - Hypothyroidism previously took armor thyroid, stable off medication - Migraine - OBESITY NOS - Osteoporosis intolerant of bisphosphonates - Palpitations 04/08/2010 - Rosacea - Seasonal allergies PAST SURGICAL HISTORY Procedure Laterality Date - COLONOSCOP W/ OR W/O BRSH SPEC 11/16/08 repeat due 2018 - EGD W/O OR W/BRUSH/WASH 11/12/99 EGD - FECAL OCCULT BLOOD TEST 03/24/2017 - TONSILLECTOMY HX ~1967 - TOTAL ABDOM HYSTERECTOMY 1985 menorrhagia; 1 ovary intact Boniva [Ibandronate]; Fosamax [Alendronate Sodium]; Sulfa (Sulfonamide Antibiotics) Medications reviewed: Yes FAMILY HISTORY Problem Relation Age of Onset - Cancer Father lung, smoker - Alzheimer's Disease Mother - Ischemic Heart Disease Paternal Grandfather - guillain barre [OTHER] Son patient refuses flu shots now SOCIAL HISTORY: Social History Marital status: Spouse name: Radha Shabazz Years of education: Number of children: 2 Occupational History 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 Gardens and walks. Sheridan denies regular aerobic exercise. She watches her diet for sodium, low fat and low cholesterol most of the time, generally not very much. List of current specialists seen: Mayur DRUM FILLER End of Live Planning discussed including patients advanced directive wishes: Yes I am willing to follow Sheridan's advanced directives. Depression screen She in the past two weeks denies having felt down, depressed, hopeless or with little interest or pleasure in doing things. Functional Ability/Safety Screen 1. Was the patient's timed Up and Go test unsteady or longer than 30 seconds? No 2. Does the patient need help with the phone, transportation, shopping,preparing meals, housework, laundry, medications or managing money? No 3. Does your home have rugs in the hallway, lack of grab bars in the bathroom, lack of handrails on the stairs or have poor lighting? No Hearing Evaluation: normal PHYSICAL EXAM BP 120/82 Pulse 66 Temp 37.1 ?C (98.7 ?F) (Tympanic) Resp 14 Ht 162.6 cm (5' 4) Wt 88.9 kg (196 lb) BMI 33.64 kg/m? Alert and oriented X 3: YES Body mass index is 33.64 kg/m?. Seeing optho See below ASSESSMENT/PLAN: 72 year old female The following prevention plan was discussed during the office visit and provided to the patient: See below Hugh Yip MD Chief Complaint Patient presents with: Physical HPI Sheridan Alvarado is a 72 year old female who presents here today for extensive exam. Patient with Hx as reviewed and documented below. c/o itching on the back of her left calf and if scratches will bleed easily. Has issues with dry skin but not good at using a daily moisturizer. Notes swelling in the left ankle as the day goes on and resolves over night. Occasionally may get sore.. Past medical history, appointments, medications, allergies reviewed. Previous Medical History PAST MEDICAL HISTORY Diagnosis Date - Acute gastritis - Elevated blood pressure - Hypothyroidism previously took armor thyroid, stable off medication - Migraine - OBESITY NOS - Osteoporosis intolerant of bisphosphonates - Palpitations 04/08/2010 - Rosacea - Seasonal allergies Previous Surgical History PAST SURGICAL HISTORY Procedure Laterality Date - COLONOSCOP W/ OR W/O BRSH SPEC 11/16/08 repeat due 2018 - EGD W/O OR W/BRUSH/WASH 11/12/99 EGD - FECAL OCCULT BLOOD TEST 03/24/2017 - TONSILLECTOMY HX ~1967 - TOTAL ABDOM HYSTERECTOMY 1985 menorrhagia; 1 ovary intact Family History FAMILY HISTORY Problem Relation Age of Onset - Cancer Father lung, smoker - Alzheimer's Disease Mother - Ischemic Heart Disease Paternal Grandfather - guillain barre [OTHER] Son patient refuses flu shots now Patient Allergies ALLERGIES Allergen Reactions - Boniva [Ibandronate] Other: See Comments Diarrhea, leg cramps - Fosamax [Alendronat* Other: See Comments Leg cramps - Sulfa (Sulfonamide * Rash Current Medications Current Outpatient Prescriptions on File Prior to Visit: propranolol ER (INDERAL LA) 80 mg 24 hr capsule Take 1 capsule by mouth once daily. SUMAtriptan (IMITREX) 100 mg tablet Take 1 tablet by mouth as directed. START AT ONSET OF HEADACHE. MAY REPEAT DOSE AFTER 2 HOURS. Max of 2 tabs in 24 hrs magnesium oxide 400 mg cap Take by mouth once daily. ibuprofen 600 mg ORAL tablet Take 1 tablet by mouth every 6 hours as needed for Pain. CHOLECALCIFEROL (VITAMIN D3) 400 UNIT TAB Take two (2) by mouth once daily. No current facility-administered medications on file prior to visit. 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 Gardens and walks. Review of Symptoms REVIEW OF SYSTEMS GENERAL: No weight loss, malaise or fevers HEENT: Negative for frequent or significant headaches, No changes in hearing or vision, no nose bleeds or other nasal problems NECK: Negative for lumps, goiter, pain and significant neck swelling RESPIRATORY: Negative for cough, hemoptysis, wheezing, COPD, dyspnea or shortness of breath CARDIOVASCULAR: Negative for chest pain, hypertension, CHF or palpitations, See HPI GI: No nausea, vomiting, or diarrhea, No heartburn or reflux symptoms and no blood : No history of dysuria or blood MUSCULOSKELETAL: Negative for joint pain or swelling, back pain or muscle pain SKIN: See HPI PSYCH: Negative for sleep disturbance, mood disorder and recent psychosocial stressors HEMATOLOGY/LYMPHOLOGY: Negative for prolonged bleeding, bruising easily or swollen nodes ENDOCRINE: Negative for cold or heat intolerance, polyuria, polydipsia and goiter NEURO: No history of frequent headaches, syncope, paralysis, seizures or tremors. Has had one migraine in the last 6 months. EXAM: BP 120/82 Pulse 66 Temp 37.1 ?C (98.7 ?F) (Tympanic) Resp 14 Ht 162.6 cm (5' 4) Wt 88.9 kg (196 lb) BMI 33.64 kg/m? General Appearance: Well appearing, alert, in no acute distress, well-hydrated, well nourished., Obese. Skin: Skin color, texture, turgor normal, no suspicious lesions. Has a patch of eczema on the back of the left calf. Head: Normocephalic, no masses, lesions, tenderness or abnormalities. Eyes: Anicteric sclera. Pupils are equally round and reactive to light. Extraocular movements are intact. . Ears: External ears normal, canals clear. Nose/Sinuses: Nares normal, septum midline, mucosa normal, no drainage or sinus tenderness. Oropharynx: Lips, mucosa, and tongue normal, teeth and gums normal, oropharynx normal. Neck: Supple, no adenopathy; thyroid symmetric, normal size, no bruits. Lungs: Lungs clear to auscultation. No wheezing, rhonchi, rales. Heart: RRR without murmur, gallop, or rubs. No ectopy. Abdomen: Normal abdominal exam, Abdomen soft, non-tender. Bowel sounds normal. No masses, organomegaly. Extremities: No deformities, edema, skin discoloration Musculoskeletal: Muscular strength intact, No joint swelling, deformity, or tenderness. Peripheral Pulses: Normal. Neurologic: Gait normal. Reflexes normal and symmetric. Sensation to light touch and crainal nerves 2-12 intact.. Health Maintenance List HEPATITIS C SCREENING due on 1991 ZOSTER VACCINE (SHINGRIX)(2 of 3) due on 08/17/2012 MAMMOGRAM due on 09/07/2018 COLORECTAL CANCER SCREENING,SEE MODIFIER due on 11/16/2018 DIABETES SCREEN due on 09/14/2020 LIPID SCREEN due on 04/04/2023 DTAP,TDAP,TD(3 - Td) due on 09/29/2027 BONE DENSITY Completed ADULT PREVNAR-13 Completed INFLUENZA Completed PNEUMOVAX AGE 65 AND OVER WITH 5YR LOOKBACK Completed Data reviewed Component Latest Ref Rng AND Units 09/14/2017 04/04/2018 Protein, Total 6.3 - 8.0 g/dL 6.6 Albumin 3.9 - 4.9 g/dL 3.8 (L) Calcium 8.5 - 10.2 mg/dL 9.0 Bilirubin, Total 0.2 - 1.3 mg/dL 0.5 Alkaline Phosphatase 32 - 117 U/L 62 AST 13 - 35 U/L 25 Glucose 74 - 99 mg/dL 92 BUN 7 - 21 mg/dL 20 Creatinine 0.58 - 0.96 mg/dL 0.67 Sodium 136 - 144 mmol/L 141 Potassium 3.7 - 5.1 mmol/L 4.2 Chloride 97 - 105 mmol/L 101 CO2 22 - 30 mmol/L 27 Anion Gap 9 - 18 mmol/L 13 ALT 7 - 38 U/L 17 eGFR- >60 eGFR-All Other Races . >60 Color Yellow Yellow Clarity Clear Cloudy (A) Glucose, Urine Negative mg/dL Negative Bilirubin, Urine Negative Negative Ketones, Urine Negative Negative Specific [place], Ur 1.005 - 1.030 1.021 Hemoglobin/Blood,Ur Negative Negative pH, Urine 4.5 - 8.0 5.0 Protein, Urine Negative mg/dL Negative Urobilinogen Normal Normal Nitrites Negative Negative Leukest Negative Negative Comments SEE COMMENT Urine Neo Comment SEE COMMENT WBC, Urine 0 - 5 /HPF 0-5 RBC, Urine 0 - 3 /HPF 0-3 Epithelial Cells /HPF SEE COMMENT Triglyceride <150 mg/dL 106 110 Cholesterol, Total <200 mg/dL 200 (H) 208 (H) HDL Cholesterol >39 mg/dL 58 65 VLDL Cholesterol <30 mg/dL 21 22 LDL Cholesterol <100 mg/dL 121 121 (H) Fasting Time hrs 11 13 TC:HDL Ratio <5.10 3.45 3.20 LDL:HDL Ratio <2.54 2.09 1.86 Non HDL Cholesterol <130 mg/dL 142 143 (H) TSH 0.400 - 5.500 uU/mL 2.710 2.230 A/P ASSESSMENT/PLAN: 1. Medicare annual wellness visit, subsequent - ICD9: V70.0, ICD10: Z00.00 (primary diagnosis) - Encouraged monthly Breast Self Exam - Follow up for annual exam in one year. 2. Essential hypertension - ICD9: 401.9, ICD10: I10 - good control - Continue current medication(s) - Recommended regular aerobic exercise. - Recommend home blood pressure monitoring, to bring results in on next visit - Goal of BP <140/90 3. Hypothyroidism (acquired) - ICD9: 244.9, ICD10: E03.9 - Instructed patient on importance of taking on an empty stomach either first thing in the morning or at bedtime. - continue to monitor. Not needing replacement. 4. Mixed hyperlipidemia - ICD9: 272.2, ICD10: E78.2 - good control - Encouraged following a low fat, low cholesterol diet. - Discussed the benefits of regular aerobic exercise and weight loss. - Encouraged following a low carbohydrate, healthy oil intake diet. 5. Migraine without aura and without status migrainosus, not intractable - ICD9: 346.10, ICD10: G43.009 - Stable with curent Tx. 6. Class 1 obesity due to excess calories without serious comorbidity with body mass index (BMI) of 33.0 to 33.9 in adult - ICD9: 278.00, V85.33, ICD10: E66.09, Z68.33 - Patient to work on diet and exercise. 7. Eczema, unspecified type - ICD9: 692.9, ICD10: L30.9 - Oral Steriod tx -see below - discussed skin care of rash - follow up if symptoms persist or worsen. Signed Prescriptions Disp Refills mometasone (ELOCON) 0.1 % cream 15 g 1 Sig: Apply to areas twice a day. On for 4 days and off for 3 days. Repeat as needed. f/u in 6 months routine check CMP, FLP, UA and TSH prior. Time with patient face to face was 30 min for extensive and 10 min for medicare wellness. Hugh Yip MD CNOV Observed: 04/11/2018 Status: COMPLETED Source: HOUMA 10:00 AM [facility] REPOSITORY Office Visit (FAMPWS) SHERIDAN ALVARADO ([id number]) 1945 F Date Time Provider Department 04/11/18 10:00 AM HUGH YIP FAMPWS During your visit today, we recorded the following information about you: Temperature Pulse Respiration Blood pressure 98.7 degrees 66/minute 14/minute 120/82 Weight Height 88.9 kg 1.626 m Hugh Yip MD 04/11/2018 8:28 PM Signed Medicare Yearly Visit Medical B eligibilty date 05/25/2012 Date of last exam 03/17/2017 PAST MEDICAL HISTORY Diagnosis Date - Acute gastritis - Elevated blood pressure - Hypothyroidism previously took armor thyroid, stable off medication - Migraine - OBESITY NOS - Osteoporosis intolerant of bisphosphonates - Palpitations 04/08/2010 - Rosacea - Seasonal allergies PAST SURGICAL HISTORY Procedure Laterality Date - COLONOSCOP W/ OR W/O BRSH SPEC 11/16/08 repeat due 2018 - EGD W/O OR W/BRUSH/WASH 11/12/99 EGD - FECAL OCCULT BLOOD TEST 03/24/2017 - TONSILLECTOMY HX ~1967 - TOTAL ABDOM HYSTERECTOMY 1985 menorrhagia; 1 ovary intact Boniva [Ibandronate]; Fosamax [Alendronate Sodium]; Sulfa (Sulfonamide Antibiotics) Medications reviewed: Yes FAMILY HISTORY Problem Relation Age of Onset - Cancer Father lung, smoker - Alzheimer's Disease Mother - Ischemic Heart Disease Paternal Grandfather - guillain barre [OTHER] Son patient refuses flu shots now SOCIAL HISTORY: Social History Marital status: Spouse name: Radha Shabazz Years of education: Number of children: 2 Occupational History 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 Gardens and walks. Sheridan denies regular aerobic exercise. She watches her diet for sodium, low fat and low cholesterol most of the time, generally not very much. List of current specialists seen: Mayur DRUM FILLER End of Live Planning discussed including patients advanced directive wishes: Yes I am willing to follow Sheridan's advanced directives. Depression screen She in the past two weeks denies having felt down, depressed, hopeless or with little interest or pleasure in doing things. Functional Ability/Safety Screen 1. Was the patient's timed Up and Go test unsteady or longer than 30 seconds? No 2. Does the patient need help with the phone, transportation, shopping,preparing meals, housework, laundry, medications or managing money? No 3. Does your home have rugs in the hallway, lack of grab bars in the bathroom, lack of handrails on the stairs or have poor lighting? No Hearing Evaluation: normal PHYSICAL EXAM BP 120/82 Pulse 66 Temp 37.1 ?C (98.7 ?F) (Tympanic) Resp 14 Ht 162.6 cm (5' 4) Wt 88.9 kg (196 lb) BMI 33.64 kg/m? Alert and oriented X 3: YES Body mass index is 33.64 kg/m?. Seeing optho See below ASSESSMENT/PLAN: 72 year old female The following prevention plan was discussed during the office visit and provided to the patient: See below Hugh Yip MD Chief Complaint Patient presents with: Physical HPI Sheridan Alvarado is a 72 year old female who presents here today for extensive exam. Patient with Hx as reviewed and documented below. c/o itching on the back of her left calf and if scratches will bleed easily. Has issues with dry skin but not good at using a daily moisturizer. Notes swelling in the left ankle as the day goes on and resolves over night. Occasionally may get sore.. Past medical history, appointments, medications, allergies reviewed. Previous Medical History PAST MEDICAL HISTORY Diagnosis Date - Acute gastritis - Elevated blood pressure - Hypothyroidism previously took armor thyroid, stable off medication - Migraine - OBESITY NOS - Osteoporosis intolerant of bisphosphonates - Palpitations 04/08/2010 - Rosacea - Seasonal allergies Previous Surgical History PAST SURGICAL HISTORY Procedure Laterality Date - COLONOSCOP W/ OR W/O BRSH SPEC 11/16/08 repeat due 2018 - EGD W/O OR W/BRUSH/WASH 11/12/99 EGD - FECAL OCCULT BLOOD TEST 03/24/2017 - TONSILLECTOMY HX ~1968 - TOTAL ABDOM HYSTERECTOMY 1986 menorrhagia; 1 ovary intact Family History FAMILY HISTORY Problem Relation Age of Onset - Cancer Father lung, smoker - Alzheimer's Disease Mother - Ischemic Heart Disease Paternal Grandfather - guillain barre [OTHER] Son patient refuses flu shots now Patient Allergies ALLERGIES Allergen Reactions - Boniva [Ibandronate] Other: See Comments Diarrhea, leg cramps - Fosamax [Alendronat* Other: See Comments Leg cramps - Sulfa (Sulfonamide * Rash Current Medications Current Outpatient Prescriptions on File Prior to Visit: propranolol ER (INDERAL LA) 80 mg 24 hr capsule Take 1 capsule by mouth once daily. SUMAtriptan (IMITREX) 100 mg tablet Take 1 tablet by mouth as directed. START AT ONSET OF HEADACHE. MAY REPEAT DOSE AFTER 2 HOURS. Max of 2 tabs in 24 hrs magnesium oxide 400 mg cap Take by mouth once daily. ibuprofen 600 mg ORAL tablet Take 1 tablet by mouth every 6 hours as needed for Pain. CHOLECALCIFEROL (VITAMIN D3) 400 UNIT TAB Take two (2) by mouth once daily. No current facility-administered medications on file prior to visit. 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 Gardens and walks. Review of Symptoms REVIEW OF SYSTEMS GENERAL: No weight loss, malaise or fevers HEENT: Negative for frequent or significant headaches, No changes in hearing or vision, no nose bleeds or other nasal problems NECK: Negative for lumps, goiter, pain and significant neck swelling RESPIRATORY: Negative for cough, hemoptysis, wheezing, COPD, dyspnea or shortness of breath CARDIOVASCULAR: Negative for chest pain, hypertension, CHF or palpitations, See HPI GI: No nausea, vomiting, or diarrhea, No heartburn or reflux symptoms and no blood : No history of dysuria or blood MUSCULOSKELETAL: Negative for joint pain or swelling, back pain or muscle pain SKIN: See HPI PSYCH: Negative for sleep disturbance, mood disorder and recent psychosocial stressors HEMATOLOGY/LYMPHOLOGY: Negative for prolonged bleeding, bruising easily or swollen nodes ENDOCRINE: Negative for cold or heat intolerance, polyuria, polydipsia and goiter NEURO: No history of frequent headaches, syncope, paralysis, seizures or tremors. Has had one migraine in the last 6 months. EXAM: BP 120/82 Pulse 66 Temp 37.1 ?C (98.7 ?F) (Tympanic) Resp 14 Ht 162.6 cm (5' 4) Wt 88.9 kg (196 lb) BMI 33.64 kg/m? General Appearance: Well appearing, alert, in no acute distress, well-hydrated, well nourished., Obese. Skin: Skin color, texture, turgor normal, no suspicious lesions. Has a patch of eczema on the back of the left calf. Head: Normocephalic, no masses, lesions, tenderness or abnormalities. Eyes: Anicteric sclera. Pupils are equally round and reactive to light. Extraocular movements are intact. . Ears: External ears normal, canals clear. Nose/Sinuses: Nares normal, septum midline, mucosa normal, no drainage or sinus tenderness. Oropharynx: Lips, mucosa, and tongue normal, teeth and gums normal, oropharynx normal. Neck: Supple, no adenopathy; thyroid symmetric, normal size, no bruits. Lungs: Lungs clear to auscultation. No wheezing, rhonchi, rales. Heart: RRR without murmur, gallop, or rubs. No ectopy. Abdomen: Normal abdominal exam, Abdomen soft, non-tender. Bowel sounds normal. No masses, organomegaly. Extremities: No deformities, edema, skin discoloration Musculoskeletal: Muscular strength intact, No joint swelling, deformity, or tenderness. Peripheral Pulses: Normal. Neurologic: Gait normal. Reflexes normal and symmetric. Sensation to light touch and crainal nerves 2-12 intact.. Health Maintenance List HEPATITIS C SCREENING due on 1991 ZOSTER VACCINE (SHINGRIX)(2 of 3) due on 08/17/2012 MAMMOGRAM due on 09/07/2018 COLORECTAL CANCER SCREENING,SEE MODIFIER due on 11/16/2018 DIABETES SCREEN due on 09/14/2020 LIPID SCREEN due on 04/04/2023 DTAP,TDAP,TD(3 - Td) due on 09/29/2027 BONE DENSITY Completed ADULT PREVNAR-13 Completed INFLUENZA Completed PNEUMOVAX AGE 65 AND OVER WITH 5YR LOOKBACK Completed Data reviewed Component Latest Ref Rng AND Units 09/14/2017 04/04/2018 Protein, Total 6.3 - 8.0 g/dL 6.6 Albumin 3.9 - 4.9 g/dL 3.8 (L) Calcium 8.5 - 10.2 mg/dL 9.0 Bilirubin, Total 0.2 - 1.3 mg/dL 0.5 Alkaline Phosphatase 32 - 117 U/L 62 AST 13 - 35 U/L 25 Glucose 74 - 99 mg/dL 92 BUN 7 - 21 mg/dL 20 Creatinine 0.58 - 0.96 mg/dL 0.67 Sodium 136 - 144 mmol/L 141 Potassium 3.7 - 5.1 mmol/L 4.2 Chloride 97 - 105 mmol/L 101 CO2 22 - 30 mmol/L 27 Anion Gap 9 - 18 mmol/L 13 ALT 7 - 38 U/L 17 eGFR- >60 eGFR-All Other Races . >60 Color Yellow Yellow Clarity Clear Cloudy (A) Glucose, Urine Negative mg/dL Negative Bilirubin, Urine Negative Negative Ketones, Urine Negative Negative Specific [place], Ur 1.005 - 1.030 1.021 Hemoglobin/Blood,Ur Negative Negative pH, Urine 4.5 - 8.0 5.0 Protein, Urine Negative mg/dL Negative Urobilinogen Normal Normal Nitrites Negative Negative Leukest Negative Negative Comments SEE COMMENT Urine Neo Comment SEE COMMENT WBC, Urine 0 - 5 /HPF 0-5 RBC, Urine 0 - 3 /HPF 0-3 Epithelial Cells /HPF SEE COMMENT Triglyceride <150 mg/dL 106 110 Cholesterol, Total <200 mg/dL 200 (H) 208 (H) HDL Cholesterol >39 mg/dL 58 65 VLDL Cholesterol <30 mg/dL 21 22 LDL Cholesterol <100 mg/dL 121 121 (H) Fasting Time hrs 11 13 TC:HDL Ratio <5.10 3.45 3.20 LDL:HDL Ratio <2.54 2.09 1.86 Non HDL Cholesterol <130 mg/dL 142 143 (H) TSH 0.400 - 5.500 uU/mL 2.710 2.230 A/P ASSESSMENT/PLAN: 1. Medicare annual wellness visit, subsequent - ICD9: V70.0, ICD10: Z00.00 (primary diagnosis) - Encouraged monthly Breast Self Exam - Follow up for annual exam in one year. 2. Essential hypertension - ICD9: 401.9, ICD10: I10 - good control - Continue current medication(s) - Recommended regular aerobic exercise. - Recommend home blood pressure monitoring, to bring results in on next visit - Goal of BP <140/90 3. Hypothyroidism (acquired) - ICD9: 244.9, ICD10: E03.9 - Instructed patient on importance of taking on an empty stomach either first thing in the morning or at bedtime. - continue to monitor. Not needing replacement. 4. Mixed hyperlipidemia - ICD9: 272.2, ICD10: E78.2 - good control - Encouraged following a low fat, low cholesterol diet. - Discussed the benefits of regular aerobic exercise and weight loss. - Encouraged following a low carbohydrate, healthy oil intake diet. 5. Migraine without aura and without status migrainosus, not intractable - ICD9: 346.10, ICD10: G43.009 - Stable with curent Tx. 6. Class 1 obesity due to excess calories without serious comorbidity with body mass index (BMI) of 33.0 to 33.9 in adult - ICD9: 278.00, V85.33, ICD10: E66.09, Z68.33 - Patient to work on diet and exercise. 7. Eczema, unspecified type - ICD9: 692.9, ICD10: L30.9 - Oral Steriod tx -see below - discussed skin care of rash - follow up if symptoms persist or worsen. Signed Prescriptions Disp Refills mometasone (ELOCON) 0.1 % cream 15 g 1 Sig: Apply to areas twice a day. On for 4 days and off for 3 days. Repeat as needed. f/u in 6 months routine check CMP, FLP, UA and TSH prior. Time with patient face to face was 30 min for [facility] and 10 min for medicare wellness. MD Hugh Ta MD 04/11/2018 11:13 AM Signed Please get fasting labs and urine teat on or after 09/30/2018 prior to next visit. Referring Provider: HUGH YIP [[id number]] Allergies As of Date: 04/11/2018 Noted Allergy Reaction SULFA (SULFONAMIDE ANTIBIOTICS) 06/23/2005 2 - Rash BONIVA (IBANDRONATE) 10/22/2011 14 - Other: See Comments Comments: Diarrhea, leg cramps FOSAMAX (ALENDRONATE SODIUM) 10/22/2011 14 - Other: See Comments Comments: Leg cramps Date Reviewed: 04/11/2018 Reviewed by: Hugh Yip - Fully Assessed Reason for Visit: Physical [83] Primary Visit Diagnosis:Medicare annual wellness visit, subsequent [Z00.00] Other Visit Diagnoses:Essential hypertension [I10] Hypothyroidism (acquired) [E03.9] Mixed hyperlipidemia [E78.2] Migraine without aura and without status migrainosus, not intractable [G43.009] Class 1 obesity due to excess calories without serious comorbidity with body mass index (BMI) of 33.0 to 33.9 in adult [E66.09, Z68.33] Eczema, unspecified type [L30.9] Order(s):mometasone (ELOCON) 0.1 % creamApply to areas twice a day. On for 4 days and off for 3 days. Repeat as needed.Disp: 15 gRfl: 1 COMP METABOLIC PANEL [SQCMP] Order #: [id number] FUTURE LIPID PANEL BASIC [SQLIPB] Order #: [id number] FUTURE URINALYSIS WITH MICROSCOPIC [SQUAWMIC] Order #: [id number] FUTURE TSH BLD [SQTSH] Order #: [id number] FUTURE Prescriptions as of 04/11/2018 Sig: PROPRANOLOL ER 80 MG CAPSULE,* Take 1 capsule by mouth once * SUMATRIPTAN 100 MG TABLET Take 1 tablet by mouth as dir* MAGNESIUM OXIDE 400 MG CAPSULE Take by mouth once daily. * IBUPROFEN 600 MG TABLET Take 1 tablet by mouth every * * CHOLECALCIFEROL (VITAMIN D3) * Take two (2) by mouth once da* MOMETASONE 0.1 % TOPICAL CREAM Apply to areas twice a day. * Problem List As Of Date 04/11/2018 Noted Resolved COMMON MIGRAINE [346.1] INVALID FOR*01/13/2008 Rosacea [L71.9] INVALID FOR* Priority: D More... More... Osteoporosis, unspecified [M81.0] INVALID FOR* Priority: M Unspecified sinusitis (chronic) [J32.9] INVALID FOR*10/22/2011 Diarrhea [R19.7] INVALID FOR*10/22/2011 Foot pain, right [M79.671] INVALID FOR*06/22/2012 Essential hypertension [I10] INVALID FOR* Priority: A Hypothyroidism (acquired) [E03.9] INVALID FOR* Priority: A Mixed hyperlipidemia [E78.2] INVALID FOR* Priority: A Migraine without aura and without status migrai*INVALID FOR* Priority: A Colon cancer screening [Z12.11] INVALID FOR* Well adult exam [Z00.00] INVALID FOR* Priority: E More... Medicare annual wellness visit, subsequent [Z00*INVALID FOR* Priority: E More... Class 1 obesity due to excess calories without *INVALID FOR* Priority: B Eczema [L30.9] INVALID FOR* Priority: D Other instructions from your clinician: Please get fasting labs and urine teat on or after 09/30/2018 prior to next visit. Prescriptions ordered this encounter Disp Refills Start End MOMETASONE 0.1 % TOPICAL CREAM 15 g 1 04/11/2018 Sig: Apply to areas twice a day. On for 4 days and off for 3 days. Repeat as needed. Disposition: Return in about 6 months (around 10/11/2018) for routine. Follow-up and Disposition History Recorded Encounter Status:Closed by HUGH YIP on 04/11/18 LIPID PANEL, BASIC Collected: 04/04/2018 Status: F Source: HOUMA 9:50 AM [facility] REPOSITORY TYPE CODE TESTS RESULT OUT OF REFERENCE UNITS RANGE LAB CHOL <200 mg/dL Cholesterol High 208 Result Comment: <200 mg/dL, Desirable 200-239 mg/dL, Borderline high >239 mg/dL, High LAB TRIGLY <150 mg/dL Triglyceride 110 Result Comment: <150 mg/dL, Normal 150-199 mg/dL, Borderline high 200-499 mg/dL, High >499 mg/dL, Very high LAB HDL >39 mg/dL HDL-Cholesterol 65 Result Comment: 40-59 mg/dL, Acceptable >59 mg/dL, High: Negative risk factor for coronary heart disease <40 mg/dL, Low: Positive risk factor for coronary heart disease LAB LDL <100 mg/dL LDL-Cholesterol High 121 Result Comment: <100 mg/dL, Optimal 100-129 mg/dL, Near optimal/above optimal 130-159 mg/dL, Borderline high 160-189 mg/dL, High >189 mg/dL, Very high Secondary prevention optimal LDL Cholesterol levels are recommended to be < 70 mg/dL LAB NONHDL <130 mg/dL Non HDL High Cholesterol 143 Result Comment: <130 mg/dL, Optimal 130-159 mg/dL, Near optimal/above optimal 160-189 mg/dL, Borderline high 190-219 mg/dL, High >219 mg/dL, Very high Secondary prevention optimal non HDL Cholesterol levels are recommended to be < 100 mg/dL LAB FT hrs Fasting Time 13 LAB VLDL <30 mg/dL VLDL Cholesterol 22 LAB TCHDL <5.10 TC:HDL Ratio 3.20 LAB LDLHDL <2.54 LDL:HDL Ratio 1.86 Result Comment: Reference: 1. National Cholesterol Education Program ATP III Guideline At-A-Glance Quick Desk Reference: National Heart, Lung, and Blood [place]. National Institutes of Health. 2001: NIH Publication No. 01-3305. 2. An International Atherosclerosis Society position paper: global recommendations for the management of dyslipidemia: executive summary, Atherosclerosis. 2014: 232(2):410-413. Performed By: #### LIPB, TSH #### [facility] [address] [place], [place] [address] TSH Collected: 04/04/2018 Status: F Source: HOUMA 9:50 AM [facility] REPOS[facility]ORY TYPE CODE TESTS RESULT OUT OF RANGE REFERENCE UNITS LAB TSH 0.400-5.500 uU/mL TSH 2.230 Performed By: #### LIPB, TSH #### [facility] [address] [place], [place] [address] ALLERGIES ALLERGIES DATE TYPE / CODE NAME / CODE REACTION SEVERITY SOURCE 10/22/2011 DRUG/[id number] IBANDRONATE OTHER: SEE C [facility] 003(SNOMED [address] [place] [address]) Repository 10/22/2011 DRUG ALENDRONATE SODIUM OTHER: SEE C [facility]/419 [facility] 739670(SNOM Repository ED CT) 10/22/2011 DRUG/[id number] IBANDRONATE OTHER: SEE [facility] 003(SNOMED [address] [place] [address]) Repository 10/22/2011 DRUG ALENDRONATE SODIUM OTHER: SEE [facility] INGREDI/419 [address] [place] 191251(SNOM Repository ED CT) 06/23/2005 Drug SULFA (SULFONAMIDE RASH [facility] Class/10620 ANTIBIOTICS) [place] 1003(SNOMED Repository CT) 06/23/2005 Drug SULFA (SULFONAMIDE RASH [facility] Class/79137 ANTIBIOTICS) [place] 1003(SNOMED Repository CT) ENCOUNTERS ENCOUNTERS ADMIT/DISCHARGE ACCOUNT ADMITTING ENCOUNTER LOCATION SOURCE NUMBER CLASS 10/11/2018/10/12/20 [id number] Ambulatory [address] [place] Repository 10/10/2018 [id number] Ambulatory [facility] ing:OPBI Repository 10/06/2018/10/06/20 [id number] Ambulatory [address] Repository 05/27/2018/05/30/20 [id number] Ambulatory [address] Repository 04/11/2018/04/12/20 [id number] Ambulatory [address] [place] Repository 04/04/2018 [id number] Ambulatory [facility] [place] Repository PAYERS PAYERS ENCOUNTER GUARANTOR PAYER SUBSCRIBER SOURCE 10/10/2018 RADHA Shabazz Primary SHERIDAN C Mayur [id number] Insurance:MEDICARE MILLERDOB: [address] A [facility] [id number] [address]Nap: (330) Number: Repository [phone] HP) [id number] Date:2018-08-24 10/10/2018 Secondary SHERIDAN Nena Merchant Insurance:CIGNAPolicy MOBILEDOB: Community Number: [id number] [id number] Repository Date:[id number] [address]OL: 10/10/2018 Tertiary NOT GIVENUNK Mayur Insurance:SELF PAY [facility] Number: Effective Repository Date:2018-08-24
== END ==
PROVIDERS: Family Provider Family Medicine; PCP Family Medicine; Visit Provider Obstetrics & Gynecology
DX: Z12.31 Encounter for screening mammogram for malignant neoplasm of breast (principal)
CPT/HCPCS: 77063; 77067

== ENCOUNTER → 2019-10-17 12:25 | Outpatient (CLI) | payer MEDICARE, OTHER, SELFPAY ==
--- NOTE | 2019-10-17 12:27 | BI_ITS ---
MAMMOGRAPHY - BILATERAL SCREENING 3-D TOMOSYNTHESIS REASON FOR EXAM: Female, 74 years old. Annual screening mammogram. PERTINENT HISTORY: No significant family history. TECHNIQUE: 2-D mammograms and 3-D Tomosynthesis of the breast (s) were performed. CAD was performed. COMPARISON: October 10, 2018, September 07, 2017 FINDINGS: The breast composition is composed of scattered fibroglandular density. Scattered benign calcifications are seen. No dense spiculated masses or suspicious microcalcifications are identified. No architectural distortion is identified. There is no skin thickening or retraction. Stable lymph nodes. There has been no significant change since the prior study. BI/SCREEN MAMM (CAD) W/KATY BILAT IMPRESSION: No mammographic signs of malignancy. Routine yearly mammograms recommended. ASSESSMENT CATEGORY: BIRADS Category 2: Benign. A letter regarding these results will be sent to the patient by the facility within 30 days. FOLLOW UP RECOMMENDATION: Yearly follow up mammogram recommended. (A) Approximately 10% of breast cancers are not detected by mammography. A normal mammogram should not delay biopsy of a clinically suspicious abnormality. Electronically Signed: Vlad Pichardo MD at 11:42 EST , Service support ,
== END ==
PROVIDERS: Family Provider Family Medicine; PCP Family Medicine; Referring Provider Family Medicine; Visit Provider Family Medicine
DX: Z12.31 Encounter for screening mammogram for malignant neoplasm of breast (principal)
CPT/HCPCS: 77063; 77067

== ENCOUNTER → 2020-10-24 10:36 | Outpatient (CLI) | payer MEDICARE, OTHER, SELFPAY ==
--- NOTE | 2020-10-24 10:38 | BI_ITS ---
MAMMOGRAPHY - BILATERAL SCREENING REASON FOR EXAM: Female, 75 years old. Routine annual screening examination. PERTINENT HISTORY: Non-contributory. TECHNIQUE: Digital bilateral breast katy (3D mammographic acquisition) in the CC and MLO projections. 2-D mediolateral oblique (MLO) and craniocaudad (CC) views of both breasts were obtained. CAD: Full Field Digital Mammography with Computer Added Detection was performed. COMPARISON: Comparison is made with prior study dated 10/17/2019 and 10/10/2018. FINDINGS: Breast Composition: There are scattered areas of fibroglandular density. There are no dominant masses or suspicious calcifications. Stable scattered bilateral microcalcifications. No focal cluster is seen. Stable benign-appearing bilateral axillary lymph nodes. No other significant abnormalities are identified. There has been no significant change since the prior study. BI/SCREEN MAMM (CAD) W/KATY BILAT IMPRESSION: Stable bilateral screening mammogram. Yearly follow-up mammogram recommended. (A) ASSESSMENT CATEGORY: BIRADS Category 2: Benign. A letter regarding these results will be sent to the patient by the facility within 30 days. Approximately 10% of breast cancers are not detected by mammography. A normal mammogram should not delay biopsy of a clinically suspicious abnormality. [id number] Electronically Signed: Peña Burgess, at 10:52 EST , Service support ,
== END ==
PROVIDERS: PCP Family Medicine; Referring Provider Physician Assistant; Visit Provider Physician Assistant
DX: Z12.31 Encounter for screening mammogram for malignant neoplasm of breast (principal)
CPT/HCPCS: 77063; 77067

== ENCOUNTER 2021-10-29 10:38 | Outpatient (CLI) | payer MEDICARE, OTHER, SELFPAY ==
--- NOTE | 2021-10-29 10:42 | BI_ITS ---
MAMMOGRAPHY - BILATERAL SCREENING REASON FOR EXAM: Female, 76 years old. Routine annual screening examination. PERTINENT HISTORY: Non-contributory. TECHNIQUE: Digital bilateral breast katy (3D mammographic acquisition) in the CC and MLO projections. 2-D mediolateral oblique (MLO) and craniocaudad (CC) views of both breasts were obtained. CAD: Full Field Digital Mammography with Computer Added Detection was performed. COMPARISON: Comparison is made with prior study dated 10/24/2020 and 10/17/2019. FINDINGS: Breast Composition: The breasts are heterogeneously dense, which may obscure small masses. There are no dominant masses or suspicious calcifications. Stable 5.1 mm calcified nodule in the retroareolar region of the left breast. Stable small benign-appearing bilateral axillary lymph nodes. No other significant abnormalities are identified. There has been no significant change since the prior study. BI/SCRN MAMM (CAD)W/KATY BILAT IMPRESSION: Stable bilateral screening mammogram. Yearly follow-up mammogram recommended. (A) ASSESSMENT CATEGORY: BIRADS Category 2: Benign. A letter regarding these results will be sent to the patient by the facility within 30 days. Approximately 10% of breast cancers are not detected by mammography. A normal mammogram should not delay biopsy of a clinically suspicious abnormality. [id number] Electronically Signed: Peña Burgess MD at 12:13 EST , Service support ,
== END 2021-10-29 23:59 | disposition short-term general hospital (02) ==
LOC: OPBI 10:40
PROVIDERS: PCP Family Medicine; Visit Provider Family Medicine
DX: Z12.31 Encounter for screening mammogram for malignant neoplasm of breast (principal)
CPT/HCPCS: 77063; 77067

== ENCOUNTER 2022-02-23 11:04 | Emergency (ER) | payer MEDICARE, OTHER, SELFPAY ==
[2022-02-23 11:05] VITALS: BP 121/86; PULSE 66; RESP 18; TEMP 36.2; O2SAT 95; BMI 32.4
--- NOTE | 2022-02-23 11:43 | CT_ITS ---
STUDY: CT ABDOMEN AND PELVIS WITH CONTRAST REASON FOR EXAM: Female, 76 years old. DIARRHEA X 2 .5 WKS, ABD AND BACK PAIN RADIATION DOSAGE (If Supplied By Facility): CTDIvol = ( 14.76 ) mGy, DLP = ( 1054.49 ) mGycm TECHNIQUE: Transaxial images were obtained from the dome of the diaphragm to the symphysis pubis without oral contrast. IV 100mL Isovue-300 was administered. Sagittal and coronal images were reconstructed. Individualized dose optimization techniques were used for this CT. COMPARISON: None. FINDINGS: The visualized lung bases are unremarkable. The visualized portions of the heart are within normal limits. Normal liver. Normal gallbladder and extrahepatic biliary system. Normal spleen. Normal pancreas. Normal bilateral adrenal glands. Normal right kidney. Normal left kidney. Moderate size hiatal hernia. Normal small intestine. Long segment wall thickening of the colon beginning in the mid transverse colon extending into the descending/rectosigmoid colon. Mild amount of rectosigmoid pericolonic stranding. There are scattered diverticular changes throughout the sigmoid colon. No focal fluid collection. Nonvisualized appendix but no secondary signs of appendicitis. Atherosclerosis of the abdominal aorta. Normal inferior vena cava. Normal retroperitoneum. Normal urinary bladder. Normal abdominal wall. There are diffuse degenerative changes of the visualized lumbar spine. CT/Abdomen/Pelvis W IV Cont ONLY IMPRESSION: 1. Long segment wall thickening of the left colon with pericolonic stranding involving the rectosigmoid colon. Findings favor diffuse colitis over diverticulitis. Electronically Signed: Geovanni Antunez MD ([place]) at 13:10 EDT Reading Location ID and State: / [place] , Service support ,
[2022-02-23 12:06] LABS: Absolute Lymphocyte Count 1.56 X10^3/uL (0.83-4.51); Absolute Neutrophil Count 3.3 X10^3/uL (2.0-7.7); Basophil# 0.06 X10^3/uL; Eosinophil# 0.21 X10^3/uL; Eosinophils% 3.6 % (0-5); Hematocrit 44.5 % (37-47); Hemoglobin 14.2 g/dL (12.0-15.0); Lymphocyte # 1.56 X10^3/ul (0.83-4.51); Lymphocyte % 26.5 % (19-41); Mean Corp Hgb Conc 31.9 g/dL (32-36); Mean Corpuscular Hgb 28.3 pg (27.0-32.0); Mean Corpuscular Volume 88.8 fL (81-99); Mean Platelet Vol. 9.8 fl (6.2-12.0); Monocyte# 0.73 X10^3/uL; Monocyte% 12.4 % (0-10); NRBC Flagged by Analyzer 0 % (0-5); Neutrophil # 3.32 X10^3/uL (2.7-7.7); Neutrophil % 56.3 % (47-70); Platelet Count 235 K/mm3 (150-450); RBC Distribution Width CV 12.7 % (11.6-14.6); RBC Distribution Width SD 41.6 fl (35.1-43.9); Red Blood Count 5.01 M/mm3 (4.2-5.4); White Blood Count 5.9 K/mm3 (4.4-11.0)
[2022-02-23 12:25] LABS: ALB/GLOB Ratio 0.9 RATIO (0.9-2.4); AST(SGOT) 15 U/L (15-37); Alanine Aminotransfer ALT/SGPT 15 U/L (13-56); Albumin, Serum 3.1 g/dL (3.2-5.0); Alkaline Phosphatase 66 U/L (45-117); Anion Gap 4 (5-15); BUN 16 mg/dL (7-18); BUN/Creat Ratio 26.3 RATIO (10-20); Calcium,Total 9.1 mg/dL (8.5-10.1); Chloride 109 mmol/L (98-107); Creatinine, Serum 0.61 mg/dL (0.55-1.02); EST Glomerular Filtration Rate 102 mL/min (>60); Est Glom Filt Rate - Afr Amer 123 mL/min (>60); Estimated Creatinine Clearance 42.62 ml/min; Globulin 3.5 g/dL (2.2-4.2); Glucose 93 mg/dL (74-106); Potassium 3.9 mmol/L (3.5-5.1); Protein, Total 6.6 g/dL (6.4-8.2); Sodium Level 142 mmol/L (136-145)
--- NOTE | 2022-02-23 12:59 | EDS_ITS ---
HPI HPI - GI History of Present Illness Chief Complaint: Diarrhea Informant: patient Narrative Narrative: Patient is a 76-year-old female presenting with abdominal discomfort and diarrhea. Patient states has had symptoms for the past 2 and half weeks. She notes it started with diarrhea after she was on a 5-day course of amoxicillin. For the past 4 days she has had urgency with bowel movements. She has pain does not she needs to have a bowel movement but only a small amount of stool comes out. Is mostly mucus at this point. She has lower back and lower abdominal pain. She states it feels consistent with pain from either labor or from a UTI but does not have any actual urinary symptoms. Denies any fever, nausea or vomiting. Denies any blood in her stool. Denies a history of C. difficile. Had a screening colonoscopy about 3 years ago that she states was negative. Has had surgical history of hysterectomy. No history of diverticulitis that she is aware of. No other complaints at this time. PFSH PFSH Medical History Hx of migraines Home Medications ciprofloxacin HCl [Cipro] 500 mg PO BID #14 tab 02/23/22 [Rx Last Taken Unknown] metronidazole 500 mg PO Q8H 7 Days #21 tab 02/23/22 [Rx Last Taken Unknown] propranolol 80 mg PO DAILY 02/23/22 [History Last Taken Unknown] Allergy/AdvReac Type Severity Reaction Status Date / Time Sulfa (Sulfonamide Allergy Rash Verified 02/23/22 11:08 Antibiotics) Surgical History Hx of hysterectomy Social History Smoking Status: Never smoker ROS ROS ED Constitutional Constitutional ED: Denies chills or fever(s) ENT ENT ED: Denies rhinorrhea or sore throat Cardiovascular Cardiovascular: Denies chest pain Respiratory/Chest Respiratory/Chest: Denies cough or dyspnea Gastrointestinal Gastrointestinal: Reports abdominal pain and diarrhea; Denies constipation, melena, nausea or vomiting Genitourinary Genitourinary ED: Denies dysuria or hematuria Musculoskeletal Musculoskeletal: Reports back pain; Denies arthralgias or myalgias Integumentary Denies rash Neurologic Neurologic: Denies headache(s) or weakness Psychiatric Psychiatric: Denies depression EXAM Physical Exam Const Vital Signs: 02/23/22 11:05 Temperature 97.2 F L Temperature Source Temporal Pulse Rate 66 Respiratory Rate 18 Blood Pressure 121/86 H Blood Pressure Mean 97 Pulse Ox 95 Oxygen Delivery Method Room Air Positive well nourished and well developed General Appearance ED: well developed and NAD HEENT Reports dry mucous membranes normocephalic and atraumatic Mouth ED: Yes dry mucous membranes Mouth: dry mucous membranes Eyes PERRL and EOMs intact bilaterally Neck supple Resp normal respiratory effort and clear to auscultation bilaterally Cardio regular rate, regular rhythm and no murmurs GI non-tender and non-distended Palpation: soft; Negative for guarding, rigid or rebound tenderness present Back/Spine no CVA tenderness Extremity full ROM General Extremety ED: Negative for edema General Extremity: Negative for edema Neuro Sensorium / Orientation: alert, oriented to person, oriented to place and oriented to time Motor Exam: general weakness Psych mental status grossly normal and thought process normal Skin no wounds Rashes: no rashes MDM MDM MDM Narrative Medical decision making narrative: Diarrhea and abdominal discomfort. This is been going on for the past 2 and half weeks and associate with recent antibiotic use. She does not have a leukocytosis. She is hemodynamically stable in the ER. Her abdomen is soft and nontender. Differential includes colitis, obstruction and diverticulitis. She is also feeling that she had decreased urination. CMP unremarkable. Urinalysis does show 500 leukocyte esterase 25-50 white blood cells and 1+ bacteria. Its not clear if this is reactive versus UTI. CT of the abdomen pelvis shows diffuse colitis more likely than diverticulitis. Read is reviewed with Dr. Brennan SHOEMAKER, who recommends Cipro and Flagyl and then outpatient follow-up. He states this could be infectious versus ischemic but he would still give antibiotics. Does not recommend any steroids at this time. Patient is agreeable with this plan of care. She has good pain control and is minimally symptomatic so I do not think she requires admission at this time. Stool studies are pending for other infectious etiology such as C. difficile. Her stool lactoferrin is elevated. Patient be discharged home. She takes p.o. challenge in the ER. She is given first dose of antibiotics in the ER. Patient and agreeable this plan of care. Patient discharged home in stable condition. She is given IV fluids in the ER and does feel improved after the IV fluids. She declines pain medication in the ER or any prescriptions for pain medicine. Lab Data Attestation: I reviewed the patient's lab results. Labs: Laboratory Results - last 24 hr 02/23/22 02/23/22 02/23/22 11:58 11:58 13:49 WBC 5.9 RBC 5.01 Hgb 14.2 Hct 44.5 MCV 88.8 MCH 28.3 MCHC 31.9 L RDW Std Deviation 41.6 RDW Coeff of Miky 12.7 Plt Count 235 MPV 9.8 Immature Gran % (Auto) 0.200 Neut % (Auto) 56.3 Lymph % (Auto) 26.5 M[place]at % (Auto) 12.4 H Eos % (Auto) 3.6 Baso % (Auto) 1.0 Absolute Neuts (auto) 3.3 Absolute Lymphs (auto) 1.56 Nucleated RBC % 0 Sodium 142 Potassium 3.9 Chloride 109 H Carbon Dioxide 29.0 Anion Gap 4 L BUN 16 Creatinine 0.61 Estim Creat Clear Calc 42.62 Est GFR (MDRD) Af Amer 123 Est GFR (MDRD) Non-Af 102 BUN/Creatinine Ratio 26.3 H Glucose 93 Calcium 9.1 Total Bilirubin 0.50 AST 15 ALT 15 Alkaline Phosphatase 66 Total Protein 6.6 Albumin 3.1 L Globulin 3.5 Albumin/Globulin Ratio 0.9 Urine Color Yellow Urine Clarity Clear Urine pH 7.0 Ur Specific [place] 1.005 Urine Protein Negative Urine Glucose (UA) Normal Urine Ketones Negative Urine Occult Blood 10 H Urine Nitrite Negative Urine Bilirubin Negative Urine Urobilinogen Normal Ur Leukocyte Esterase 500 H Urine RBC 0-5 SEEN Urine WBC 25-50 SEEN Ur Squamous Epith Cells 0-5 SEEN Urine Bacteria 1+ Urine Mucus 0 SEEN Radiography Diagnostic Testing: Clinical Impression(s) from Imaging Studies Abdomen/Pelvis CT 02/23/22 11:43 IMPRESSION: 1. Long segment wall thickening of the left colon with pericolonic stranding involving the rectosigmoid colon. Findings favor diffuse colitis over diverticulitis. Electronically Signed: Geovanni Antunez MD ([place]) at 13:10 EDT Reading Location ID and State: / [place] , Service support , Discharge Plan Triage Chief Complaint: Diarrhea Other Complaint: Abd Pain ED Provider: Ale Unger Dx/Rx/DC Orders Clinical Impression: Colitis presumed to be due to infection Instructions: ED Understanding Colitis Prescriptions: New ciprofloxacin HCl [Cipro] 500 mg tablet 500 mg PO BID Qty: 14 RF: 0 metronidazole 500 mg tablet 500 mg PO Q8H 7 Days Qty: 21 RF: 0 No Action propranolol 80 mg capsule,extended release 24 hr 80 mg PO DAILY RF: 0 Primary Care Provider: Phill Reynolds Referrals: Phill Reynolds MD [Primary Care Provider] - Elias Amin DO [STAFF PHYSICIAN] - As soon as possible Disposition Disposition: Home, Self Care
[2022-02-23 13:53] LABS: Mucous, Urine 0 SEEN /hpf (<or=2+)
[2022-02-23 13:55] LABS: Color, Urine Yellow (Yellow); Glucose, Dipstick Normal (Normal); Ketone-Dipstick Negative (Negative); Leukocyte Esterase-Dipstick 500 /ul (Negative); Nitrite-Dipstick Negative (Negative); Occult Blood-Urine 10 /ul (Negative); Protein-Dipstick Negative (Negative); Specific Gravity, Urine 1.005 (1.002-1.030); Urine Bilirubin Dipstick Negative (Negative); Urine Clarity Clear (Clear); Urine Urobilinogen Normal (Normal)
[2022-02-23 14:01] LABS: Bacteria 1+ /hpf (None Seen); Red Blood Cells-Urine 0-5 SEEN /hpf (0-5); Squamous Epithelial Cells - UA 0-5 SEEN /hpf (5-10); White Blood Cells 25-50 SEEN /hpf (0-5)
[2022-02-23] MEDS: Ciprofloxacin 500 MG Tablet PO (14:13)
[2022-02-23] MEDS: metroNIDAZOLE 500 MG Tablet PO (14:13)
== END 2022-02-23 14:36 | disposition home or self-care (01) ==
PROVIDERS: Emergency Provider Emergency Medicine; PCP Family Medicine; Visit Provider Emergency Medicine
DX: K52.9 Noninfective gastroenteritis and colitis, unspecified (principal); R10.30 Lower abdominal pain, unspecified
CPT/HCPCS: 74177; 80053; 81001; 83630; 85025; 87086; 87493; 87506; 96360; 99284; J7030; Q9967; A4216

== ENCOUNTER → 2022-06-09 | Outpatient (CLI) | payer MEDICARE, OTHER, SELFPAY | END | disposition home or self-care (01) | LOC: LABSPEC 09:34 | PROVIDERS: PCP Family Medicine; Referring Provider Nurse Practitioner Adult Health; Visit Provider Nurse Practitioner Adult Health | DX: A04.72 Enterocolitis due to Clostridium difficile, not specified as recurrent (principal) | CPT/HCPCS: 87493 ==

== ENCOUNTER → 2022-09-07 | Outpatient (CLI) | payer MEDICARE, OTHER, SELFPAY | END | disposition home or self-care (01) | LOC: LABSPEC 08:43 | PROVIDERS: PCP Family Medicine; Referring Provider Nurse Practitioner Adult Health; Visit Provider Nurse Practitioner Adult Health | DX: A04.72 Enterocolitis due to Clostridium difficile, not specified as recurrent (principal) | CPT/HCPCS: 87493 ==

== ENCOUNTER → 2022-10-30 | Outpatient (CLI) | payer MEDICARE, OTHER, SELFPAY ==
--- NOTE | 2022-10-30 10:39 | BI_ITS ---
MAMMOGRAPHY - BILATERAL SCREENING REASON FOR EXAM: Female, 77 years old. Routine annual screening examination. PERTINENT HISTORY: Non-contributory. TECHNIQUE: Digital bilateral breast katy (3D mammographic acquisition) in the CC and MLO projections. 2-D mediolateral oblique (MLO) and craniocaudad (CC) views of both breasts were obtained. CAD: Full Field Digital Mammography with Computer Added Detection was performed. COMPARISON: Comparison is made with prior study dated 10/29/2021 and 10/24/2020. FINDINGS: Breast Composition: The breasts are heterogeneously dense, which may obscure small masses. There are no dominant masses or suspicious calcifications. Stable 5 mm calcified nodule in the retroareolar region of the left breast. Stable benign-appearing bilateral axillary No other significant abnormalities are identified. There has been no significant change since the prior study. BI/SCRN MAMM (CAD)W/KATY BILAT IMPRESSION: Stable bilateral screening mammogram. Yearly follow-up mammogram recommended. (A) ASSESSMENT CATEGORY: BIRADS Category 2: Benign. A letter regarding these results will be sent to the patient by the facility within 30 days. Approximately 10% of breast cancers are not detected by mammography. A normal mammogram should not delay biopsy of a clinically suspicious abnormality. [id number] Electronically Signed: Peña Burgess MD at 12:45 EST ,
== END | disposition home or self-care (01) ==
LOC: OPBI 10:35
PROVIDERS: PCP Family Medicine; Visit Provider Family Medicine
DX: Z12.31 Encounter for screening mammogram for malignant neoplasm of breast (principal)
CPT/HCPCS: 77063; 77067

== ENCOUNTER → 2023-11-16 | Outpatient (CLI) | payer MEDICARE, OTHER, SELFPAY ==
--- NOTE | 2023-11-16 11:46 | BI_ITS ---
MAMMOGRAPHY - BILATERAL SCREENING REASON FOR EXAM: Female, 78 years old. Routine annual screening examination. PERTINENT HISTORY: Non-contributory. TECHNIQUE: Digital bilateral breast katy (3D mammographic acquisition) in the CC and MLO projections. 2-D mediolateral oblique (MLO) and craniocaudad (CC) views of both breasts were obtained. CAD: Full Field Digital Mammography with Computer Added Detection was performed. COMPARISON: Comparison is made with prior study dated April 29, 2023 and October 29, 2021. FINDINGS: Breast Composition: The breasts are heterogeneously dense, which may obscure small masses. There are no dominant masses or suspicious calcifications. Stable 5 mm calcified nodule in the retroareolar region of the left breast. No other significant abnormalities are identified. There has been no significant change since the prior study. BI/SCRN MAMM (CAD)W/KATY BILAT IMPRESSION: Stable bilateral screening mammogram. Yearly follow-up mammogram recommended. (A) ASSESSMENT CATEGORY: BIRADS Category 2: Benign. A letter regarding these results will be sent to the patient by the facility within 30 days. Approximately 10% of breast cancers are not detected by mammography. A normal mammogram should not delay biopsy of a clinically suspicious abnormality. [id number] Electronically Signed: Peña Burgess MD at 12:40 EST ,
--- OUTSIDE RECORDS SUMMARY | 2023-11-16 12:18 | XMS RPT_ITS | CCD ---
Author Name Unknown Address [address] [place] [address] Organization [facility] Care Team Providers Care Chief Medical Director Name Role Phone Hugh Yip MD Primary Care Provider SAMIR SAHNI Referring Unavailable HUGH YIP Attending Unavailable HUGH YIP Primary Care Unavailable SAMIR SAHNI Referring Unavailable HUGH YIP Primary Care Unavailable SAMIR SAHNI Attending Unavailable HUGH YIP Primary Care Unavailable HUGH YIP Referring Unavailable HUGH YIP Primary Care Unavailable Allergies Allergy Classification Reported Allergen(s) Allergy Type Date of Onset Reaction(s) Facility (20 sources) Alendronate; Translations: [ALENDRONATE SODIUM] Drug Allergy 1 Other: See Comments [facility] Work Phone: (20 sources) Ibandronate; Translations: [IBANDRONATE] Drug Allergy 1 Other: See Comments [facility] Work Phone: (20 sources) Sulfonamides (Antibiotic); Translations: [SULFA (SULFONAMIDE ANTIBIOTICS)] Drug Allergy 5 Rash [facility] Work Phone: (7 sources) Vancomycin; Translations: [VANCOMYCIN] Drug Allergy 2 Other: See Comments [facility] Work Phone: Medications Current Medications Medication Drug Class(es) Dates Sig (Normalized) Sig (Original) amoxicillin 875 mg / clavulanate 125 mg oral tablet (1 source) Penicillin-class Antibacterial Start: 02-04-2022 End: 02-09-2022 take 1 tablet by mouth twice daily amoxicillin-clav ulanic acid (AUGMENTIN) 875-125 mg per tablet Take 1 tablet by mouth twice daily for 5 days. 10 tablet 0 02/04/2022 02/09/2022 Active Completed/Discontinued Medications Medication Drug Class(es) Dates Sig (Normalized) Sig (Original) ascorbic acid 500 mg oral tablet (6 sources) Vitamin C take 1 tablet by reji th once daily ascorbic acid, vitamin C, (VITAMIN C) 500 mg tablet Take 500 mg by mouth once daily. 0 Active Problems Active Problems Problem Classification Problem Date Documented Da te Episodic/Chronic Administrative/social admission (8 sources) Advance directive discussed with patient; Translations: [Other specified counseling] Onset: 10-14-2022 Episodic Bacterial infection; unspecified site (1 source) Recurrent Clostridium difficile infection; Translations: [Other bacterial infections of unspecified site] Episodic Disorders of lipid metabolism (20 sources) Mixed hyperlipidemia; Translations: [Mixed hyperlipidemia] Onset: 09-17-2015 09-17-2015 Chronic Essential hypertension (20 sources) Essential hypertension; Translations: [Essential (primary) hypertension] Onset: 09-17-2015 09-17-2015 Chronic Genitourinary symptoms and ill-defined conditions (4 sources) Scalding pain on urination ; Translations: [Dysuria] Episodic Headache; including migraine (20 sources) Migraine without aura, not refractory ; Translations: [Migraine without aura, not intractable, without status migrainosus] Onset: 09-17-2015 09-17-2015 Chronic Immunizations and screening for infectious disease (1 source) Encounter for immunization; Translations: [Need for vaccination] Onset: 11-03-2023 Episodic Noninfectious gastroenteritis (2 sources) Chronic diarrhea; Translations: [Noninfective gastroenteritis and colitis, unspecified] Onset: 04-15-2023 Episodic Osteoporosis (20 sources) Osteoporosis; Translations: [Age-related osteoporosis without current pathological fracture] Onset: 02-01-2009 05-10-2019 Chronic Other diseases of bladder and urethra (7 sources) Overactive bladder; Translations: [Overactive bladder] Onset: 10-14-2022 Chronic Other diseases of bladder and urethra (1 source) Overactive bladder; Translations: [OAB (overactive bladder)] Onset: 10-14-2022 Chronic Other gastrointestinal disorders (1 source) Diarrhea; Translations: [Diarrhea, unspecified] Episodic Other inflammatory condition of skin (20 sources) Rosacea; Translations: [Rosacea, unspecified] Onset: 04-07-2007 10-20-2021 Chronic Other lower respiratory disease (1 source) Cough; Translations: [Cough] Episodic Other nutritional; endocrine; and metabolic disorders (20 sources) Obesity; Translations: [Other obesity due to excess calories] Onset: 09-22-2017 09-22-2017 Chronic Other nutritional; endocrine; and metabolic disorders (1 source) Obesity caused by energy imbalance; Translations: [Other obesity due to excess calories] Onset: 09-22-2017 09-22-2017 Chronic Other nutritional; endocrine; and metabolic disorders (1 source) Other obesity due to excess calories; Translations: [Class 1 obesity due to excess calories without serious comorbidity with body mass index (BMI) of 33.0 to 33.9 in adult] Onset: 09-22-2017 Chronic Other nutritional; endocrine; and metabolic disorders (1 source) Body mass index (BMI) 33.0-33.9, adult; Translations: [Class 1 obesity due to excess calories without serious comorbidity with body mass index (BMI) of 33.0 to 33.9 in adult] Onset: 09-22-2017 Chronic Other skin disorders (2 sources) Eruption; Translations: [Rash and other nonspecific skin eruption] Episodic Other upper respiratory disease (20 sources) Seasonal allergy; Translations: [Other seasonal allergic rhinitis] 03-11-2021 Chronic Thyroid disorders (20 sources) Acquired hypothyroidism; Translations: [Hypothyroidism, unspecified] Onset: 09-17-2015 09-17-2015 Chronic Urinary tract infections (3 sources) Recurrent urinary tract infection; Translations: [Urinary tract infection, site not specified] Onset: 04-15-2023 Episodic Past or Other Problems Problem Classification Problem Date Documented Da te Episodic/Chronic Allergic reactions (20 sources) Eczema; Translations: [Dermatitis, unspecified] Onset: 04-11-2018 04-11-2018 Episodic Other aftercare (20 sources) Patient encounter status; Translations: [Other roasterman (current) drug therapy] Onset: 09-17-2015 03-11-2021 Episodic Other infections; including parasitic (1 source) History of Clostridium difficile intestinal infection; Translations: [Personal history of other infectious and parasitic diseases] Onset: 12-04-2022 12-04-2022 Episodic Other screening for suspected conditions (not mental disorders or infectious disease) (1 source) Encounter for screening mammogram for malignant neoplasm of breast; Translations: [Encounter for screening mammogram for breast cancer] Onset: 10-09-2019 Episodic Residual codes; unclassified (15 sources) Active advance directive; Translations: [Other specified health status] Onset: 09-10-2020 03-11-2021 Episodic Residual codes; unclassified (6 sources) Active living will ; Translations: [Other specified health status] Onset: 09-10-2020 10-14-2022 Episodic Varicose veins of lower extremity (20 sources) Varicose veins of bilateral lower limbs; Translations: [Asymptomatic varicose veins of bilateral lower extremities] Onset: 03-11-2021 09-17-2021 Episodic Results Test Name Value Interpretation Reference Range Facil ity Vital Signs Date Time Vital Sign Value Performing Clinician Faci lity 04-15-2023 10:40-0400 Body temperature 98.2 [degF] Samir MAYA-C Work Phone: [facility] 04-15-2023 10:40-0400 Body weight 80.74 kg Samir MAYA-C Work Phone: [facility] 04-15-2023 10:40-0400 Diastolic blood pressure 80 mm[Hg] Samir Sahni PA-C Work Phone: [facility] 04-15-2023 10:40-0400 Heart rate 76 /min Samir MAYA-C Work Phone: [facility] 04-15-2023 10:40-0400 Respiratory rate 18 /min Samir Sahni PA-C Work Phone: [facility] 04-15-2023 10:40-0400 Systolic blood pressure 130 mm[Hg] Samir MAYA-C Work Phone: [facility] 10-14-2022 10:42-0500 Body height 158.8 cm Hugh Yip MD Work Phone: [facility] 10-14-2022 10:42-0500 Body weight 81.65 kg Hugh Yip MD Work Phone: [facility] 10-14-2022 10:42-0500 Diastolic blood pressure 78 mm[Hg] Hugh Yip MD Work Phone: [facility] 10-14-2022 10:42-0500 Heart rate 76 /min Hugh Yip MD Work Phone: [facility] 10-14-2022 10:42-0500 Respiratory rate 16 /min Hugh Yip MD Work Phone: [facility] 10-14-2022 10:42-0500 Systolic blood pressure 130 mm[Hg] Hugh Yip MD Work Phone: [facility] 07-30-2022 13:44-0400 Body temperature 98.2 [degF] Michael Snell MD Work Phone: [facility] 07-30-2022 13:44-0400 Body weight 82.92 kg Michael Snell MD Work Phone: [facility] 07-30-2022 13:44-0400 Diastolic blood pressure 76 mm[Hg] Michael Snell MD Work Phone: [facility] 07-30-2022 13:44-0400 Heart rate 71 /min Michael Snell MD Work Phone: [facility] 07-30-2022 13:44-0400 Respiratory rate 18 /min Michael Snell MD Work Phone: [facility] 07-30-2022 13:44-0400 SaO2% (BldA) [Mass fraction] 96 % Michael Snell MD Work Phone: [facility] 07-30-2022 13:44-0400 Systolic blood pressure 130 mm[Hg] Michael Snell MD Work Phone: [facility] 06-30-2022 14:28-0400 Body temperature 98.1 [degF] Nicolette Agustin APRN.BALANCE RECESSER Work Phone: [facility] 06-30-2022 14:28-0400 Body weight 82.1 kg Nicolette Agustin APRN.BALANCE RECESSER Work Phone: [facility] 06-30-2022 14:28-0400 Diastolic blood pressure 80 mm[Hg] Nicolette Praisler-Wood ROLLER REPAIRER.BALANCE RECESSER Work Phone: [facility] 06-30-2022 14:28-0400 Heart rate 82 /min Nicolette Praisler-Wood ROLLER REPAIRER.BALANCE RECESSER Work Phone: [facility] 06-30-2022 14:28-0400 Respiratory rate 18 /min Nicolette Praisler-Wood ROLLER REPAIRER.BALANCE RECESSER Work Phone: [facility] 06-30-2022 14:28-0400 SaO2% (BldA) [Mass fraction] 97 % Nicolette Praisler-Wood ROLLER REPAIRER.BALANCE RECESSER Work Phone: [facility] 06-30-2022 14:28-0400 Systolic blood pressure 136 mm[Hg] Nicolette Praisler-Wood ROLLER REPAIRER.BALANCE RECESSER Work Phone: [facility] 05-15-2022 09:20-0400 Body temperature 97.7 [degF] Leticia Athy PA-C Work Phone: [facility] 05-15-2022 09:20-0400 Body weight 82.92 kg Leticia Athy PA-C Work Phone: [facility] 05-15-2022 09:20-0400 Diastolic blood pressure 78 mm[Hg] Leticia Athy PA-C Work Phone: [facility] 05-15-2022 09:20-0400 Heart rate 65 /min Leticia Athy PA-C Work Phone: [facility] 05-15-2022 09:20-0400 Respiratory rate 20 /min Leticia Athy PA-C Work Phone: [facility] 05-15-2022 09:20-0400 SaO2% (BldA) [Mass fraction] 97 % Leticia Athy PA-C Work Phone: [facility] 05-15-2022 09:20-0400 Systolic blood pressure 124 mm[Hg] Leticia Athy PA-C Work Phone: [facility] 04-21-2022 12:45-0400 Body temperature 97.5 [degF] Nicolette Praisler-Wood ROLLER REPAIRER.BALANCE RECESSER Work Phone: [facility] 04-21-2022 12:45-0400 Body weight 82.37 kg Nicolette Praisler-Wood ROLLER REPAIRER.BALANCE RECESSER Work Phone: [facility] 04-21-2022 12:45-0400 Diastolic blood pressure 82 mm[Hg] Nicolette Praisler-Wood ROLLER REPAIRER.BALANCE RECESSER Work Phone: [facility] 04-21-2022 12:45-0400 Heart rate 74 /min Nicolette Praisler-Wood ROLLER REPAIRER.BALANCE RECESSER Work Phone: [facility] 04-21-2022 12:45-0400 Respiratory rate 16 /min Nicolette Praisler-Wood ROLLER REPAIRER.BALANCE RECESSER Work Phone: [facility] 04-21-2022 12:45-0400 SaO2% (BldA) [Mass fraction] 96 % Nicolette Praisler-Wood ROLLER REPAIRER.BALANCE RECESSER Work Phone: [facility] 04-21-2022 12:45-0400 Systolic blood pressure 126 mm[Hg] Nicolette Praisler-Wood ROLLER REPAIRER.BALANCE RECESSER Work Phone: [facility] 03-17-2022 12:26-0400 Body temperature 99 [degF] Samir Sahni PA-C Work Phone: [facility] 03-17-2022 12:26-0400 Body weight 83.46 kg Samir Sahni PA-C Work Phone: [facility] 03-17-2022 12:26-0400 Diastolic blood pressure 80 mm[Hg] Samir Sahni PA-C Work Phone: [facility] 03-17-2022 12:26-0400 Heart rate 68 /min Samir Sahni PA-C Work Phone: [facility] 03-17-2022 12:26-0400 Respiratory rate 16 /min Samir Sahni PA-C Work Phone: [facility] 03-17-2022 12:26-0400 Systolic blood pressure 130 mm[Hg] Samir Sahni PA-C Work Phone: [facility] 02-04-2022 12:43-0400 Body temperature 98.1 [degF] Rebeca Dawkins APRN.BALANCE RECESSER Work Phone: [facility] 02-04-2022 12:43-0400 Body weight 85.91 kg Rebeca Dawkins APRN.BALANCE RECESSER Work Phone: [facility] 02-04-2022 12:43-0400 Diastolic blood pressure 80 mm[Hg] Rebeca Dawkins APRN.BALANCE RECESSER Work Phone: [facility] 02-04-2022 12:43-0400 Heart rate 70 /min Rebeca Dawkins APRN.BALANCE RECESSER Work Phone: [facility] 02-04-2022 12:43-0400 Respiratory rate 21 /min Rebeca Dawkins APRN.BALANCE RECESSER Work Phone: [facility] 02-04-2022 12:43-0400 SaO2% (BldA) [Mass fraction] 98 % Rebeca Dawkins APRN.BALANCE RECESSER Work Phone: [facility] 02-04-2022 12:43-0400 Systolic blood pressure 124 mm[Hg] Rebeca Dawkins APRN.BALANCE RECESSER Work Phone: [facility] Encounters Encounter Date Encounter Type Care Provider Facility Start: 11-03-2023 Patient encounter procedure HUGH YIP [facility] Start: 11-03-2023 End: 11-04-2023 ambulatory SAMIR SAHNI Facility:[facility] Start: 10-28-2023 End: 10-29-2023 ambulatory SAMIR SAHNI Facility:[facility] Start: 04-15-2023 End: 04-15-2023 ambulatory SAMIR SAHNI Facility:[facility] Start: 04-15-2023 End: 04-15-2023 Patient encounter procedure Samir Sahni PA-C Work Phone: [facility] Procedures Date Procedure Procedure Detail Performing Clinician Start: 11-03-2022 Dxa bone density reginald dy 1/> sites axial skel Hugh Yip MD Work Phone: Start: 07-30-2022 Urnls dip stick/tabl et rgnt auto w/o microscopy Filipe Weaver ROLLER REPAIRER.BALANCE RECESSER Work Phone: Start: 06-30-2022 Urnls dip stick/tabl et rgnt auto w/o microscopy Filipe Weaver ROLLER REPAIRER.BALANCE RECESSER Work Phone: Start: 05-15-2022 Urnls dip stick/tabl et rgnt auto w/o microscopy Leticia Interiano PA-C Work Phone: Start: 10-24-2020 Mammography Rebeca Dawkins ROLLER REPAIRER.BALANCE RECESSER Work Phone: Start: 06-05-2019 Colonoscopy Rebeca Dawkins ROLLER REPAIRER.BALANCE RECESSER Work Phone: Plan of Treatment Date Care Activity Detail Author Start: 06-05-2029 Colonoscopy COLONOSCOPY [facility] Start: 06-05-2029 COLORECTAL CANCER SCREENING COLORECTAL CANCER SCREENING [facility] Start: 04-07-2028 LIPID SCREEN LIPID SCREEN [facility] Start: 10-08-2027 LIPID SCREEN LIPID SCREEN [facility] Start: 09-29-2027 Urine microalbumin profile [facility] Start: 03-12-2027 LIPID SCREEN LIPID SCREEN [facility] Start: 09-11-2026 LIPID SCREEN LIPID SCREEN [facility] Start: 10-08-2025 DIABETES SCREEN DIABETES SCREEN [facility] Start: 10-08-2025 Diabetes Screening Diabetes Screening [facility] Start: 09-11-2024 DIABETES SCREEN DIABETES SCREEN [facility] Start: 04-15-2024 ANNUAL PCP TEAM CHRONIC DISEASE VISIT ANNUAL PCP TEAM CHRONIC DISEASE VISIT [facility] Start: 10-15-2023 End: 12-15-2023 CBC W Auto Differential panel - Blood CBC + DIFF Lab Routine Essential hypertension Mixed hyperlipidemia Expected: 10/15/2023, Expires: 12/15/2023 [facility] Work Phone: Immunizations Immunization Date Immunization Notes Care Provider Fa cili 09-03-2022 influenza, high dose seasonal, preservative-free Hugh Yip MD Work Phone: [facility] 08-21-2022 COVID-19 booster vaccine, age 12+ yr, bivalent (MODERNA) Hugh Yip MD Work Phone: [facility] 02-18-2022 COVID-19 vaccine, fu ll dose (MODERNA) Hugh Yip MD Work Phone: [facility] 08-21-2021 COVID-19 vaccine, fu ll dose (MODERNA) Rebeca Dawkins APRN.BALANCE RECESSER Work Phone: [facility] 07-24-2021 influenza, high dose seasonal, preservative-free Rebeca Dawkins ROLLER REPAIRER.BALANCE RECESSER Work Phone: [facility] 01-15-2021 COVID-19 vaccine, fu ll dose (MODERNA) Rebeca Dawkins ROLLER REPAIRER.BALANCE RECESSER Work Phone: [facility] 12-22-2020 COVID-19 vaccine, fu ll dose (MODERNA) Rebeca Dawkins APRN.BALANCE RECESSER Work Phone: [facility] 08-22-2020 influenza, high dose seasonal, preservative-free Rebeca Dawkins ROLLER REPAIRER.BALANCE RECESSER Work Phone: [facility] Work Phone: 09-11-2019 zoster vaccine recombinant Rebeca Dawkins APRN.BALANCE RECESSER Work Phone: [facility] 06-13-2019 zoster vaccine recombinant Samir Sahni PA-C Work Phone: [facility] 05-25-2019 zoster vaccine recombinant Rebeca Dawkins APRN.BALANCE RECESSER Work Phone: [facility] 09-29-2017 tetanus toxoid, redu velma diphtheria toxoid, and acellular pertussis vaccine, adsorbed Rebeca Dawkins ROLLER REPAIRER.BALANCE RECESSER Work Phone: [facility] 03-17-2017 pneumococcal polysaccharide vaccine, 23 valent Rebeca Dawkins ROLLER REPAIRER.BALANCE RECESSER Work Phone: [facility] 09-17-2015 pneumococcal conjuga te vaccine, 13 valent Rebeca Dawkins ROLLER REPAIRER.BALANCE RECESSER Work Phone: [facility] Work Phone: 06-22-2012 zoster vaccine, live Santifernando leyva Juancho ROLLER REPAIRER.BALANCE RECESSER Work Phone: [facility] Work Phone: 04-09-2011 pneumococcal polysaccharide vaccine, 23 valent Rebeca Dawkins ROLLER REPAIRER.BALANCE RECESSER Work Phone: [facility] Work Phone: 04-07-2007 tetanus toxoid, redu velma diphtheria toxoid, and acellular pertussis vaccine, adsorbed Rebeca Dawkins ROLLER REPAIRER.BALANCE RECESSER Work Phone: [facility] Work Phone: Payers Date Payer Category Payer Private Health Insurance [employer] PPO [id number] 2012-Present [phone] [address] [place] [address] PPO [id number] 2012 Private Health Insurance [employer] PPO [id number] 2012-Present [phone] [address] [place] [address] PPO [id number] 2012 Private Health Insurance [id number] 2012 Medicare MEDICARE MEDICAR E A AND B [id number] 2012-Present [phone] [place] [address] Medicare [id number] 2012 Medicare MEDICARE MEDICAR E A AND B [id number] 2012-Present [phone] [place] [address] Medicare [id number] 2012 Medicare [id number] Social History Date Type Detail Facility Start: 02-23-2012 Tobacco smoking stat us MEIS Never smoked tobacco [facility] Start: 02-04-2022 End: 10-15-2022 Alcohol intake Current non-drinker of alcohol (finding) [facility] Start: 1945 Sex Assigned At Not on file [facility] Start: 03-07-2022 End: 07-30-2022 Exposure to SARS-CoV-2 (event) Not sure [facility] Start: 02-23-2012 Tobacco use and exposure Smokeless tobacco non-user [facility] Start: 03-17-2022 End: 10-15-2022 History of Social function [facility] Work Phone: Start: 03-17-2022 End: 10-15-2022 Tobacco use panel [facility] Work Phone: Adult Depression Screening Assessment 0 [facility] Work Phone: Clinical Notes 10-22-2011 to 11-03-2023 Samir Sahni PA-C - 04/15/2023 10:49 AM EDTTelephone Encounter - Grazyna Reddy RN - 11/04/2022 8:18 AM ESTTelephone Encounter - Hugh Yip MD - 11/03/2022 7:33 PM ESTPatient Instructions Note Date & Type Note Facility 11-03-2023 Note HNO ID: [id number] Author: HUGH YIP MD Service: ? Author Type: Physician Type: Progress Notes Filed: 11/04/2023 15:59 Note Text: Sheridan Alvarado is a 78 year old female here for a Medicare wellness visit. Medicare Health Risk Assessment General Health good Exercise: Minutes/Day none Exercise: Days/Week Alcohol: Daily Use none Alcohol: Drinks/Day Alcohol: 6 or more drinks Feel off balance No Concerns: Teeth/Dentures no Concerns: Sexual function Troubled by feelings no Frequency: Eating healthy diet 4-5 days a week ADLs requiring help none Safety precautions in home/vehicle yes Smoke, vape, chews tobacco never Difficulty hearing No Difficulty seeing no Current Providers Specialists: I have reviewed specialist-related care of the patient in the medical record. Current care team: Patient Care Team: Hugh Yip MD as PCP - General (Family Medicine) Dr. Cadena (Urology). Dr. Amin (gastro) Medical/Family history review Reviewed and updated problem list, medical/surgical/family/social history, medications, and allergies. Opioid use review Opioid Medications (last 90 days) Some values may be hidden. Unless noted otherwise, only the newest values recorded on each date are displayed. Opioid Medications No data to display. Depression screening Depression Screening PHQ-2 Score 11/03/2023 2 Depression screening tool completed and reviewed. Based on score and interview, patient is not at risk for depression. Screening tool discussed with patient, and I recommended no further intervention at this time. Cognitive screening Cognitive screening reviewed and no further action needed (score 3-5) Functional Observation Was the patient's timed Up AND Go test unsteady or ? 12 seconds? No Advance Care Planning Surrogate decision maker and/or advance care plan documented Measurements BP 132/82 Pulse 72 Resp 18 Ht 5' 2 (1.58m) Wt 177 lb (80.3kg) BMI 32.37 kg/(m2). Seeing optho Additional screenings: No results found. Assessment/Plan Medicare annual wellness visit, subsequent (Z00.00) - Counseled on healthy diet and regular exercise - Fall avoidance information provided - Personalized prevention plan provided See Below Chief Complaint Patient presents with: Medicare Wellness Exam HPI Sheridan Alvarado is a 78 year old female who presents here today for Chronic Medical Conditions. and Medicare Annual Visit. Patient with hx of HTN, hyperlipidemia, hypothyroidism, osteoporosis, chronic Diarrhea, and those as below. Any new concerns today No recent ER/hospital visits? Past medical history, appointments, medications, allergies reviewed. Previous Medical History PAST MEDICAL HISTORY Diagnosis Date Acute gastritis Advance directive discussed with patient 10/14/2022 Discussed 09/2022: up to date Advance directive on file 09/10/2020 Class 1 obesity due to excess calories without serious comorbidity with body mass index (BMI) of 33.0 to 33.9 in adult 09/22/2017 Eczema 04/11/2018 Essential hypertension 09/17/2015 History of Clostridioides difficile colitis 12/04/2022 Seeing Gastro: Dr. Amin Hypothyroidism (acquired) 09/17/2015 Living will on file at physician's office 09/10/2020 DPA: Crow () Medicare annual wellness visit, subsequent 03/17/2017 Medicare Part B: 05/25/2012 last done: 04/11/2018 Migraine without aura and without status migrainosus, not intractable 09/17/2015 Mixed hyperlipidemia 09/17/2015 OAB (overactive bladder) 10/14/[address] Cadena Osteoporosis intolerant of bisphosphonates Rosacea Seasonal allergies Varicose veins of both lower extremities 03/11/2021 with swelling on the left. Previous Surgical History PAST SURGICAL HISTORY Procedure Laterality Date COLONOSCOPY FLX DX W/COLLJ SPEC WHEN PFRMD 11/16/08 repeat due 2018 COLONOSCOPY FLX DX W/COLLJ SPEC WHEN PFRMD 06/05/2019 Colonoscopy ESOPHAGOGASTRODUODENOSCOPY TRANSORAL DIAGNOSTIC 11/12/99 EGD FECAL OCCULT BLOOD TEST 03/24/2017 TONSILLECTOMY HX ~1967 TOTAL ABDOMINAL HYSTERECT W/WO RMVL TUBE OVARY 1985 menorrhagia; 1 ovary intact Family History FAMILY HISTORY Problem Relation Age of Onset Cancer Father lung, smoker Alzheimer's Disease Mother Ischemic Heart Disease Paternal Grandfather other (guillain barre) Son patient refuses flu shots now Patient Allergies ALLERGIES Allergen Reactions Sulfa (Sulfonamide * Rash Boniva [Ibandronate] Other: See Comments Diarrhea, leg cramps Fosamax [Alendronat* Other: See Comments Leg cramps Vancomycin Other: See Comments Oral form increased risk of UTI's Current Medications Current Outpatient Medications on File Prior to Visit Medication Sig cephALEXin (KEFLEX) 500 mg capsule Take 500 mg by mouth three times a day. propranolol ER (INDERAL LA) 80 mg 24 hr capsule Take 1 capsule by mouth once daily. estradiol (ESTRACE) 0.01 % (0.1 mg/gra (more content not included)... [facility] 04-15-2023 Note HNO ID: [id number] Author: Samir Sahni PA-C Service: ? Author Type: Physician Pre Sales Systems Engineer Type: Progress Notes Filed: 04/15/2023 11:40 AM Note Text: Chief Complaint Patient presents with: 6 Month Exam HPI Sheridan Alvarado is a 77 year old female who presents here today for Chronic Medical Conditions.. Patient with hx of HTN, hyperlipidemia, hypothyroidism, osteoporosis, chronic Diarrhea, and those as below. Patient does have a chronic recurring rash on her foot. Has tried multiple creams including triamcinolone which has not been beneficial. She continues to have issues with chronic diarrhea. Has follow up with gastro. Past medical history, appointments, medications, allergies reviewed. Previous Medical History PAST MEDICAL HISTORY Diagnosis Date Acute gastritis Advance directive discussed with patient 10/14/2022 Discussed 09/2022: up to date Advance directive on file 09/10/2020 Class 1 obesity due to excess calories without serious comorbidity with body mass index (BMI) of 33.0 to 33.9 in adult 09/22/2017 Eczema 04/11/2018 Essential hypertension 09/17/2015 History of Clostridioides difficile colitis 12/04/2022 Seeing Gastro: Dr. Amin Hypothyroidism (acquired) 09/17/2015 Living will on file at physician's office 09/10/2020 DPA: Crow () Medicare annual wellness visit, subsequent 03/17/2017 Medicare Part B: 05/25/2012 last done: 04/11/2018 Migraine without aura and without status migrainosus, not intractable 09/17/2015 Mixed hyperlipidemia 09/17/2015 OAB (overactive bladder) 10/14/[address] Cadena Osteoporosis intolerant of bisphosphonates Rosacea Seasonal allergies Varicose veins of both lower extremities 03/11/2021 with swelling on the left. Previous Surgical History PAST SURGICAL HISTORY Procedure Laterality Date COLONOSCOPY FLX DX W/COLLJ SPEC WHEN PFRMD 11/16/08 repeat due 2018 COLONOSCOPY FLX DX W/COLLJ SPEC WHEN PFRMD 06/05/2019 Colonoscopy ESOPHAGOGASTRODUODENOSCOPY TRANSORAL DIAGNOSTIC 11/12/99 EGD FECAL OCCULT BLOOD TEST 03/24/2017 TONSILLECTOMY HX ~1968 TOTAL ABDOMINAL HYSTERECT W/WO RMVL TUBE OVARY 1985 menorrhagia; 1 ovary intact Family History FAMILY HISTORY Problem Relation Age of Onset Cancer Father lung, smoker Alzheimer's Disease Mother Ischemic Heart Disease Paternal Grandfather other (guillain barre) Son patient refuses flu shots now Patient Allergies ALLERGIES Allergen Reactions Sulfa (Sulfonamide * Rash Boniva [Ibandronate] Other: See Comments Diarrhea, leg cramps Fosamax [Alendronat* Other: See Comments Leg cramps Vancomycin Other: See Comments Oral form increased risk of UTI's Current Medications Current Outpatient Medications on File Prior to Visit Medication Sig estradiol (ESTRACE) 0.01 % (0.1 mg/gram) vaginal cream INSERT 1 GRAM VAGINALLY 3 TIMES A WEEK BEFORE BED. START WITH EVERY NIGHT FOR 2 WEEKS colestipol (COLESTID) 1 gram tablet Take 1 g by mouth once daily. ascorbic acid, vitamin C, (VITAMIN C) 500 mg tablet Take 500 mg by mouth once daily. propranolol ER (INDERAL LA) 80 mg 24 hr capsule Take 1 capsule by mouth once daily. Lactobacillus acidophilus (PROBIOTIC ORAL) Take by mouth. magnesium oxide 400 mg cap Take by mouth once daily. ibuprofen 600 mg ORAL tablet Take 1 tablet by mouth every 6 hours as needed for Pain. CHOLECALCIFEROL (VITAMIN D3) 400 UNIT TAB Take two (2) by mouth once daily. No current facility-administered medications on file prior to visit. Social History Social History Tobacco Use Smoking status: Never Smokeless tobacco: Never Substance Use Topics Alcohol use: No Drug use: No Review of Symptoms REVIEW OF SYSTEMS GENERAL: No weight loss, malaise or fevers NECK: Negative for lumps, goiter, pain and significant neck swelling RESPIRATORY: Negative for cough, hemoptysis, wheezing, COPD, dyspnea or shortness of breath CARDIOVASCULAR: Negative for chest pain, leg swelling, hypertension, CHF or palpitations GI: See HPI NEURO: No history of headaches, syncope, paralysis, seizures or tremors EXAM: BP 130/80 (BP Site: Right Arm, BP Position: Sitting, BP Cuff Size: Large Adult) Pulse 76 Temp 36.8 ?C (98.2 ?F) Resp 18 Wt 80.7 kg (178 lb) BMI 32.04 kg/m? Last 3 Encounter Wt Readings: Date: Wt: 04/15/2023 80.7 kg (178 lb) 10/14/2022 81.6 kg (180 lb) 07/30/2022 82.9 kg (182 lb 12.8 oz) General Appearance: Well appearing, alert, in no acute distress, well-hydrated, well nourished.. Skin: erythematous rash on left ankle/foot. blanches. Neck: Supple, no adenopathy; thyroid symmetric, normal size, no bruits. Lungs: Lungs clear to auscultation. No wheezing, rhonchi, rales.. Heart: RRR without murmur, gallop, or rubs. No ectopy. Extremities: No deformities, edema, skin discoloration, clubbing or cyanosis. Good capillary refill. . Peripheral Pulses: Normal. Health Maintenance List ADVANCE DIRECT (more content not included)... [facility] 04-15-2023 History of Presen t illness Narrative Chief Complaint Patient presents with: 6 Month Exam HPI Sheridan Alvarado is a 77 year old female who presents here today for Chronic Medical Conditions.. Patient with hx of HTN, hyperlipidemia, hypothyroidism, osteoporosis, chronic Diarrhea, and those as below. Patient does have a chronic recurring rash on her foot. Has tried multiple creams including triamcinolone which has not been beneficial. She continues to have issues with chronic diarrhea. Has follow up with gastro. Past medical history, appointments, medications, allergies reviewed. Previous Medical History PAST MEDICAL HISTORY Diagnosis Date Acute gastritis Advance directive discussed with patient 10/14/2022 Discussed 09/2022: up to date Advance directive on file 09/10/2020 Class 1 obesity due to excess calories without serious comorbidity with body mass index (BMI) of 33.0 to 33.9 in adult 09/22/2017 Eczema 04/11/2018 Essential hypertension 09/17/2015 History of Clostridioides difficile colitis 12/04/2022 Seeing Gastro: Dr. Amin Hypothyroidism (acquired) 09/17/2015 Living will on file at physician's office 09/10/2020 DPA: Crow () Medicare annual wellness visit, subsequent 03/17/2017 Medicare Part B: 05/25/2012 last done: 04/11/2018 Migraine without aura and without status migrainosus, not intractable 09/17/2015 Mixed hyperlipidemia 09/17/2015 OAB (overactive bladder) 10/14/[address] Cdaena Osteoporosis intolerant of bisphosphonates Rosacea Seasonal allergies Varicose veins of both lower extremities 03/11/2021 with swelling on the left. Previous Surgical History PAST SURGICAL HISTORY Procedure Laterality Date COLONOSCOPY FLX DX W/COLLJ SPEC WHEN PFRMD 11/16/08 repeat due 2018 COLONOSCOPY FLX DX W/COLLJ SPEC WHEN PFRMD 06/05/2019 Colonoscopy ESOPHAGOGASTRODUODENOSCOPY TRANSORAL DIAGNOSTIC 11/12/99 EGD FECAL OCCULT BLOOD TEST 03/24/2017 TONSILLECTOMY HX ~1967 TOTAL ABDOMINAL HYSTERECT W/WO RMVL TUBE OVARY 1985 menorrhagia; 1 ovary intact Family History FAMILY HISTORY Problem Relation Age of Onset Cancer Father lung, smoker Alzheimer's Disease Mother Ischemic Heart Disease Paternal Grandfather other (guillain barre) Son patient refuses flu shots now Patient Allergies ALLERGIES Allergen Reactions Sulfa (Sulfonamide * Rash Boniva [Ibandronate] Other: See Comments Diarrhea, leg cramps Fosamax [Alendronat* Other: See Comments Leg cramps Vancomycin Other: See Comments Oral form increased risk of UTI's Current Medications Current Outpatient Medications on File Prior to Visit Medication Sig estradiol (ESTRACE) 0.01 % (0.1 mg/gram) vaginal cream INSERT 1 GRAM VAGINALLY 3 TIMES A WEEK BEFORE BED. START WITH EVERY NIGHT FOR 2 WEEKS colestipol (COLESTID) 1 gram tablet Take 1 g by mouth once daily. ascorbic acid, vitamin C, (VITAMIN C) 500 mg tablet Take 500 mg by mouth once daily. propranolol ER (INDERAL LA) 80 mg 24 hr capsule Take 1 capsule by mouth once daily. Lactobacillus acidophilus (PROBIOTIC ORAL) Take by mouth. magnesium oxide 400 mg cap Take by mouth once daily. ibuprofen 600 mg ORAL tablet Take 1 tablet by mouth every 6 hours as needed for Pain. CHOLECALCIFEROL (VITAMIN D3) 400 UNIT TAB Take two (2) by mouth once daily. No current facility-administered medications on file prior to visit. Social History Social History Tobacco Use Smoking status: Never Smokeless tobacco: Never Substance Use Topics Alcohol use: No Drug use: No Review of Symptoms REVIEW OF SYSTEMS GENERAL: No weight loss, malaise or fevers NECK: Negative for lumps, goiter, pain and significant neck swelling RESPIRATORY: Negative for cough, hemoptysis, wheezing, COPD, dyspnea or shortness of breath CARDIOVASCULAR: Negative for chest pain, leg swelling, hypertension, CHF or palpitations GI: See HPI NEURO: No history of headaches, syncope, paralysis, seizures or tremors EXAM: BP 130/80 (BP Site: Right Arm, BP Position: Sitting, BP Cuff Size: Large Adult) Pulse 76 Temp 36.8 C (98.2 F) Resp 18 Wt 80.7 kg (178 lb) BMI 32.04 kg/m Last 3 Encounter Wt Readings: Date: Wt: 04/15/2023 80.7 kg (178 lb) 10/14/2022 81.6 kg (180 lb) 07/30/2022 82.9 kg (182 lb 12.8 oz) General Appearance: Well appearing, alert, in no acute distress, well-hydrated, well nourished.. Skin: erythematous rash on left ankle/foot. blanches. Neck: Supple, no adenopathy; thyroid symmetric, normal size, no bruits. Lungs: Lungs clear to auscultation. No wheezing, rhonchi, rales.. Heart: RRR without murmur, gallop, or rubs. No ectopy. Extremities: No deformities, edema, skin discoloration, clubbing or cyanosis. Good capillary refill. . Peripheral Pulses: Normal. Health Maintenance List ADVANCE DIRECTIVE DISCUSSION due on 10/25/2022 DEPRESSION ASSESSMENT due on 10/25/2022 ANNUAL PCP TEAM CHRONIC DISEASE VISIT due on 10/14/2023 BP CONTROLLED (<130/80) due on 10/14/2023 DIABETES SCREEN due on 10/08/2025 DTAP,TDAP,TD(3 - Td or Tdap) due on 09/29/2027 LIPID SCREEN due on 04/07/2028 COLORECTAL CANCER SCREENING due on 06/05/2029 BONE DENSITY Completed INFLUENZA Completed SHINGRIX VACCINE Completed COVID-19 VACCINE Completed PNEUMOCOCCAL: 65+ Completed HEPATITIS C SCREENING Discontinued Data reviewed Component Latest Ref Rng & Units 04/07/2023 Total Cholesterol, Nonfasting <200 mg/dL 228 (H) Triglycerides, Nonfasting <150 mg/dL 170 (H) HDL Cholesterol, Nonfasting >39 mg/dL 63 LDL Cholesterol, Nonfasting <100 mg/dL 131 (H) Non HDL Cholesterol, Nonfasting <130 mg/dL 165 (H) VLDL Cholesterol, Nonfasting <30 mg/dL 34 (H) Total Chol/HDL Ratio, Nonfasting <5.10 mg/dL 3.62 LDL/HDL Ratio, Nonfasting <2.54 mg/dL 2.08 TSH 0.270 - 4.200 mIU/L 2.510 ASSESSMENT/PLAN: 1. Essential hypertension - ICD9: 401.9, ICD10: I10 (primary diagnosis) - Controlled - Continue current medications - Recommend home blood pressure monitoring, to bring results to next visit - Encouraged sodium restriction, DASH or Mediterranean diet - Recommend regular aerobic exercise - URINALYSIS, WITH MICROSCOPIC - CBC + DIFF - COMP METABOLIC PANEL 2. Mixed hyperlipidemia - ICD9: 272.2, ICD10: E78.2 stable - Counseled on healthy diet and regular exercise - CBC + DIFF - LIPID PANEL, NONFASTING 3. Chronic diarrhea - ICD9: 787.91, ICD10: K52.9 Cont with gastro 4. Hypothyroidism (acquired) - ICD9: 244.9, ICD10: E03.9 Controlled off meds. Wesley monitor - TSH BLD 5. Frequent UTI - ICD9: 599.0, ICD10: N39.0 recurrent Cont with uro 6. Rash - ICD9: 782.1, ICD10: R21 Offered consult to derm- she will consider. Samir Sahni PA-C documented in this encounter [facility] 11-04-2022 Miscellaneous Notes Phoned patient and given provider's message below with verbalized understanding. Let patient know her bone strength study shows a slight improvement in some of the worse areas compared to last DXA in 2017 and others showed a mild decrease in bone strength in other areas that weren't as bad before. documented in this encounter [facility] 11-03-2022 History of Presen t illness Narrative Radiology Service Progress Note PATIENT NAME: Sheridan Alvarado DATE OF SERVICE: November 03, 2022 TIME: 10:24 AM PATIENT IDENTITY VERIFICATION COMPLETED USING TWO (2) IDENTIFIERS: Name and Date of confirmed by patient verbally. FALL SCREENING: Has the patient had 2 falls in the last year or 1 fall with injury or currently using an Ambulatory Assistive Device (Walker, Cane, Wheelchair, Crutches, etc.)? No PATIENT GENDER DATA: Female. status: : No status: NO. PATIENT RELEVANT IMPLANT DATA REVIEWED: Not Applicable RADIOLOGY DEPARTMENT: Bone Density PERIPHERAL IV DATA: Not applicable SIGNED BY: RT Naeem(R) November 03, 2022 10:24 AM documented in this encounter [facility] 10-22-2022 Miscellaneous Notes Noted. Pt notified. She states she does not understand why there is no infection present when she has classic symptoms of UTI- burning, pressure, low back pain. She states she has been into [facility] 4 times for this and has had atb's. Pt states she then ended up with diarrhea/cdiff. Pt asked if urine culture was run, advised pt that urine cx was run and there was no bacteria to indicate infection. Urology consult was placed back in July, asked pt if she ever scheduled appt with Urology. Pt states she tried contacting Urology, but they are out of the office this week. Advised pt that she really needs to contact Urology to schedule an appt if she continues to have urological issues. Pt did not seem happy, but did agree to contacting Urology for appt. Lalo Parra LPN Let patient know urine was negative for infection. Samir Sahni PA-C documented in this encounter [facility] 10-21-2022 Miscellaneous Notes Noted Pt called and is notified of providers message and instructions. Pt voices understanding. Please call once UA is back. Danielle Ruiz RN We should at least get urine checked. Orders placed. Samir Sahni PA-C Pt called in and reports she is having low back pain, burning with urination, and frequency. She states she has had this for several days now. She goes to see Dr Cadena, but she is on vacation right now. Let Pt know that provider could send in for UA and culture to make sure that she is put on the right antibiotic. Pt reports she is put on antibiotics for the UTI then ends up with diarrhea, which then causes the UTI again. I told her I could get her an office visit with another provider today. She states I know the treatment is antibiotics and I will take them. Please call and advise Pt. documented in this encounter [facility] 10-14-2022 Instructions Hugh Yip MD - 10/14/2022 11:34 AM EST Please get labs and urine test done on or after 04/02/2023 prior to your next visit. documented in this encounter [facility] 10-14-2022 History of Presen t illness Narrative Medicare Yearly Visit Medical B eligibilty date 05/25/2012 Date of last exam 09/17/2021 PAST MEDICAL HISTORY PAST MEDICAL HISTORY Diagnosis Date Acute gastritis Class 1 obesity due to excess calories without serious comorbidity with body mass index (BMI) of 33.0 to 33.9 in adult 09/22/2017 Eczema 04/11/2018 Essential hypertension 09/17/2015 Hypothyroidism (acquired) 09/17/2015 Medicare annual wellness visit, subsequent 03/17/2017 Medicare Part B: 05/25/2012 last done: 04/11/2018 Migraine without aura and without status migrainosus, not intractable 09/17/2015 Mixed hyperlipidemia 09/17/2015 Osteoporosis intolerant of bisphosphonates Rosacea Seasonal allergies PAST SURGICAL HISTORY PAST SURGICAL HISTORY Procedure Laterality Date COLONOSCOP W/ OR W/O BRSH SPEC 11/16/08 repeat due 2019 COLONOSCOP W/ OR W/O BRSH SPEC 06/05/2019 Colonoscopy EGD W/O OR W/BRUSH/WASH 11/12/99 EGD FECAL OCCULT BLOOD TEST 03/24/2017 TONSILLECTOMY HX ~1968 TOTAL ABDOM HYSTERECTOMY 1986 menorrhagia; 1 ovary intact Sulfa (Sulfonamide Antibiotics), Boniva [Ibandronate], and Fosamax [Alendronate Sodium] Medications reviewed: Yes FAMILY HISTORY FAMILY HISTORY Problem Relation Age of Onset Cancer Father lung, smoker Alzheimer's Disease Mother Ischemic Heart Disease Paternal Grandfather other (guillain barre) Son patient refuses flu shots now SOCIAL HISTORY: SOCIAL HISTORY Social History Tobacco Use Smoking status: Never Smoker Smokeless tobacco: Never Used Substance Use Topics Alcohol use: No Drug use: No Sheridan denies regular aerobic exercise currently. She watches her diet for sodium, low fat and low cholesterol generally not very much. List of current specialists seen: Optnadira Amin (Gastro) Dr. Cadena (Urology) End of Live Planning discussed including patients advanced directive wishes: Yes I am willing to follow Sheridan's advanced directives. PHQ-2 / Depression screen Depression Screening 09/09/2016 09/22/2017 10/11/2018 10/14/2022 PHQ-2 Score 0 2 0 0 Depression screening tool completed and reviewed. Based on score and interview, patient is not at risk for depression. Screening tool discussed with patient, and I recommended no further intervention at this time. Functional Ability/Safety Screen 1. Was the patient's [...] No Hearing Evaluation: normal PHYSICAL EXAM BP 130/78 (BP Site: Left Arm, BP Position: Sitting, BP Cuff Size: Large Adult) Pulse 76 Resp 16 Ht 158.8 cm (5' 2.5 ) Wt 81.6 kg (180 lb) BMI 32.40 kg/m Alert and oriented X 3: YES Body mass index is 32.40 kg/m . Visual acuity: see Ophthalmology see below ASSESSMENT/PLAN: 77 year old female The following prevention plan was discussed during the office visit and provided to the patient: See below Chief Complaint Patient presents with: Medicare Wellness Exam HPI Sheridan Alvarado is a 77 year old female who presents here today for Extensive Visit. Patient with hx of HTN, HLP, Migraine, rosacea, osteoporosis, obesity, and those as below. Patient has had C. Diff on two occasions and seeing Gastro. Seems to be slowing down. Because of the Vanco was getting frequent UTI's and now is seeing Urology. Patient has been doing better. No new issues or concerns. Past medical history, appointments, medications, allergies reviewed. Previous Medical History PAST MEDICAL HISTORY Diagnosis Date Acute gastritis Advance directive on file 09/10/2020 Class 1 obesity due to excess calories without serious comorbidity with body mass index (BMI) of 33.0 to 33.9 in adult 09/22/2017 Eczema 04/11/2018 Essential hypertension 09/17/2015 Hypothyroidism (acquired) 09/17/2015 Medicare annual wellness visit, subsequent 03/17/2017 Medicare Part B: 05/25/2012 last done: 04/11/2018 Migraine without aura and without status migrainosus, not intractable 09/17/2015 Mixed hyperlipidemia 09/17/2015 Osteoporosis intolerant of bisphosphonates Rosacea Seasonal allergies Varicose veins of both lower extremities 03/11/2021 with swelling on the left. Previous Surgical History PAST SURGICAL HISTORY Procedure Laterality Date COLONOSCOPY FLX DX W/COLLJ SPEC WHEN PFRMD 11/16/08 repeat due 2018 COLONOSCOPY FLX DX W/COLLJ SPEC WHEN PFRMD 06/05/2019 Colonoscopy ESOPHAGOGASTRODUODENOSCOPY TRANSORAL DIAGNOSTIC 11/12/99 EGD FECAL OCCULT BLOOD TEST 03/24/2017 TONSILLECTOMY HX ~1967 TOTAL ABDOMINAL HYSTERECT W/WO RMVL TUBE OVARY 1985 menorrhagia; 1 ovary intact Family History FAMILY HISTORY Problem Relation Age of Onset Cancer Father lung, smoker Alzheimer's Disease Mother Ischemic Heart Disease Paternal Grandfather other (guillain barre) Son patient refuses flu shots now Patient Allergies ALLERGIES Allergen Reactions Sulfa (Sulfonamide * Rash Boniva [Ibandronate] Other: See Comments Diarrhea, leg cramps Fosamax [Alendronat* Other: See Comments Leg cramps Current Medications Current Outpatient Medications on File Prior to Visit Medication Sig Lactobacillus acidophilus (PROBIOTIC ORAL) Take by mouth. propranolol ER (INDERAL LA) 80 mg 24 hr capsule Take 1 capsule by mouth once daily. magnesium oxide 400 mg cap Take by mouth once daily. ibuprofen 600 mg ORAL tablet Take 1 tablet by mouth every 6 hours as needed for Pain. CHOLECALCIFEROL (VITAMIN D3) 400 UNIT TAB Take two (2) by mouth once daily. No current facility-administered medications on file prior to visit. Social History Social History Tobacco Use Smoking status: Never Smokeless tobacco: Never Substance Use Topics Alcohol use: No Drug use: No Review of Symptoms REVIEW OF SYSTEMS GENERAL: No weight loss, malaise or fevers HEENT: Negative for frequent or significant headaches, No changes in hearing or vision, no nose bleeds or other nasal problems NECK: Negative for lumps, goiter, pain and significant neck swelling RESPIRATORY: Negative for cough, hemoptysis, wheezing, COPD, dyspnea or shortness of breath CARDIOVASCULAR: Negative for chest pain, leg swelling, hypertension, CHF or palpitations GI: No nausea, vomiting, No heartburn or reflux symptoms, and no blood. See HPI : No history of dysuria, blood MUSCULOSKELETAL: Negative for joint pain or swelling, back pain or muscle pain SKIN: Negative for lesions, rash, and itching PSYCH: Negative for sleep disturbance, mood disorder and recent psychosocial stressors HEMATOLOGY/LYMPHOLOGY: Negative for prolonged bleeding, bruising easily or swollen nodes ENDOCRINE: Negative for cold or heat intolerance, polyuria, polydipsia and goiter NEURO: No history of headaches, syncope, paralysis, seizures or tremors EXAM: BP 130/78 (BP Site: Left Arm, BP Position: Sitting, BP Cuff Size: Large Adult) Pulse 76 Resp 16 Ht 158.8 cm (5' 2.5 ) Wt 81.6 kg (180 lb) BMI 32.40 kg/m Last 5 Encounter Wt Readings: Date: Wt: 10/14/2022 81.6 kg (180 lb) 07/30/2022 82.9 kg (182 lb 12.8 oz) 06/30/2022 82.1 kg (181 lb) 05/29/2022 82.2 kg (181 lb 3.2 oz) 05/15/2022 82.9 kg (182 lb 12.8 oz) General Appearance: Well appearing, alert, in no acute distress, well-hydrated, well nourished. and Obese. Skin: Skin color, texture, turgor normal, no suspicious rashes or lesions. Head: Normocephalic, no masses, lesions, tenderness or abnormalities. Eyes: Anicteric sclera. Pupils are equally round and reactive to light. Extraocular movements are intact. . Ears: External ears, TM's normal, canals clear. Neck: Supple, no adenopathy; thyroid symmetric, normal size, no bruits. Lungs: Lungs clear to auscultation. No wheezing, rhonchi, rales.. Heart: RRR without murmur, gallop, or rubs. No ectopy. Abdomen: Normal abdominal exam, Abdomen soft, non-tender. Bowel sounds normal. No masses, organomegaly. Extremities: No deformities, edema, skin discoloration, Good capillary refill. . Musculoskeletal: Muscular strength intact, No joint swelling, deformity, or tenderness. Peripheral Pulses: Normal. Neurologic: Gait normal. Reflexes normal and symmetric. Sensation to light touch and crainal nerves 2-12 intact.. Health Maintenance List ADVANCE DIRECTIVE DISCUSSION Never done DEPRESSION ASSESSMENT Never done BP CONTROLLED (<130/80) due on 03/11/2022 ANNUAL PCP TEAM CHRONIC DISEASE VISIT due on 03/17/2023 DIABETES SCREEN due on 10/08/2025 DTAP,TDAP,TD(3 - Td or Tdap) due on 09/29/2027 LIPID SCREEN due on 10/08/2027 COLORECTAL CANCER SCREENING due on 06/05/2029 BONE DENSITY Completed INFLUENZA Completed SHINGRIX VACCINE Completed COVID-19 VACCINE Completed PNEUMOCOCCAL: 65+ Completed HEPATITIS C SCREENING Discontinued Data reviewed Component Latest Ref Rng & Units 09/11/2021 03/12/2022 10/08/2022 WBC 3.70 - 11.00 k/uL 7.63 8.69 RBC 3.90 - 5.20 m/uL 5.38 (H) 5.18 Hemoglobin 11.5 - 15.5 g/dL 15.4 15.2 Hematocrit 36.0 - 46.0 % 49.1 (H) 48.1 (H) MCV 80.0 - 100.0 fL 91.3 92.9 MCH 26.0 - 34.0 pg 28.6 29.3 MCHC 30.5 - 36.0 g/dL 31.4 31.6 RDW-CV 11.5 - 15.0 % 13.1 13.2 Platelet Count 150 - 400 k/uL 234 271 MPV 9.0 - 12.7 fL 10.5 10.7 Neut% % 60.3 59.8 Abs Neut (ANC) 1.45 - 7.50 k/uL 4.58 5.19 Lymph% % 23.9 24.7 Abs Lymph 1.00 - 4.00 k/uL 1.82 2.15 [place]% % 9.8 9.2 Abs [place] <0.87 k/uL 0.75 0.80 Eosin% % 5.0 4.8 Abs Eosin <0.46 k/uL 0.38 0.42 Baso% % 1.0 1.3 Abs Baso <0.11 k/uL 0.08 0.11 (H) Immature Gran % % 0.2 IMMATURE GRANS (ABS) <0.10 k/uL <0.03 NRBC /100 WBC 0.0 Absolute nRBC <0.01 k/uL <0.01 <0.01 DTYPE Auto Nucleated Reds 0 /100 WBC 0.0 Diff Type Auto Diff Protein, Total 6.3 - 8.0 g/dL 6.8 6.7 Albumin 3.9 - 4.9 g/dL 4.2 4.2 Calcium 8.5 - 10.2 mg/dL 9.4 9.3 Bilirubin, Total 0.2 - 1.3 mg/dL 0.4 0.3 Alkaline Phosphatase 34 - 123 U/L 74 86 AST 13 - 35 U/L 18 21 Glucose 74 - 99 mg/dL 80 83 BUN 7 - 21 mg/dL 20 19 Creatinine 0.58 - 0.96 mg/dL 0.58 0.58 Sodium 136 - 144 mmol/L 140 139 Potassium 3.7 - 5.1 mmol/L 4.8 4.9 Chloride 97 - 105 mmol/L 104 105 CO2 22 - 30 mmol/L 27 25 Anion Gap 9 - 18 mmol/L 9 9 ALT 7 - 38 U/L 14 12 eGFR- >60 eGFR-All Other Races . >60 eGFR >=60 mL/min/1.73m 95 Color Yellow Light Yellow Clarity Clear Cloudy (A) Glucose, Urine Trace, Negative Negative Bilirubin, Urine Negative Negative Ketones, Urine Trace, Negative Negative Specific [place], Ur 1.005 - 1.030 1.028 Hemoglobin/Blood,Ur Negative, Trace Negative pH, Urine 5.0 - 8.0 6.0 Protein, Urine Trace, Negative Trace Urobilinogen Negative Negative Nitrites Negative Negative Leukest Negative, 25 Delphine/mL Negative WBC, Urine 0-5 /HPF 0-5 /HPF RBC, Urine 0-3 /HPF 0-3 /HPF Epithelial Cells /HPF Few Total Cholesterol, Nonfasting <200 mg/dL 220 (H) 219 (H) 222 (H) Triglycerides, Nonfasting <150 mg/dL 131 74 144 HDL Cholesterol, Nonfasting >39 mg/dL 64 55 67 LDL Cholesterol, Nonfasting <100 mg/dL 130 (H) 149 (H) 126 (H) Non HDL Cholesterol, Nonfasting <130 mg/dL 156 (H) 164 (H) 155 (H) VLDL Cholesterol, Nonfasting <30 mg/dL 26 15 29 Total Chol/HDL Ratio, Nonfasting <5.10 mg/dL 3.44 3.98 3.31 LDL/HDL Ratio, Nonfasting <2.54 mg/dL 2.03 2.71 (H) 1.88 TSH 0.270 - 4.200 mIU/L 2.230 2.760 2.360 A/P ASSESSMENT/PLAN: 1. Medicare annual wellness visit, subsequent - ICD9: V70.0, ICD10: Z00.00 (primary diagnosis) - Counseled on healthy diet and regular exercise - Calcium intake with supplements or by diet of 1000 mg/day for under 50, 1862-3026 mg/day for 50+ - Discussed need and benefit for weight loss. BMI 32.40 kg/(m^2) - Follow up for annual exam in one year 2. Essential hypertension - ICD9: 401.9, ICD10: I10 - good control - Continue current medication(s) - Recommended regular aerobic exercise. - Recommend home blood pressure monitoring, to bring results in on next visit - Goal of BP <130/80 3. Mixed hyperlipidemia - ICD9: 272.2, ICD10: E78.2 - good control and - improved control - Encouraged following a low fat, low cholesterol diet. - Discussed the benefits of regular aerobic exercise and weight loss. - Encouraged following a low carbohydrate, healthy oil intake diet. - Continue current therapy. 4. Hypothyroidism (acquired) - ICD9: 244.9, ICD10: E03.9 - Instructed patient on importance of taking on an empty stomach either first thing in the morning or at bedtime. - continue current dose of Synthroid 5. Migraine without aura and without status migrainosus, not intractable - ICD9: 346.10, ICD10: G43.009 - no active issues. 6. Varicose veins of both lower extremities, unspecified whether complicated - ICD9: 454.9, ICD10: I83.93 - stable no issues 7. Class 1 obesity due to excess calories without serious comorbidity with body mass index (BMI) of 33.0 to 33.9 in adult - ICD9: 278.00, V85.33, ICD10: E66.09, Z68.33 Weight decreasing - Behavioral intervention 8. OAB (overactive bladder) - ICD9: 596.51, ICD10: N32.81 - management per urology 9. Age-related osteoporosis without current pathological fracture - ICD9: 733.01, ICD10: M81.0 - Reviewed the need for Calcium and Vitamin D supplements and weight bearing exercise as tolerated - check DXA 10. Advance directive discussed with patient - ICD9: V65.49, ICD10: Z71.89 - up to date 11. Encounter for screening mammogram for breast cancer - ICD9: V76.12, ICD10: Z12.31 Check - ZULEIKA SCREENING W KATY Requested Prescriptions Signed Prescriptions Disp Refills propranolol ER (INDERAL LA) 80 mg 24 hr capsule 90 capsule 3 Sig: Take 1 capsule by mouth once daily. F/u in 6 months routine check lipid and TSH prior I spent a total of 40 minutes on the date of the service which included preparing to see the patient, [id number] patient care, completing clinical documentation, performing a medically appropriate examination, counseling and educating the patient/family/caregiver and ordering medications, tests, or procedures. Hugh Yip MD documented in this encounter [facility] 08-26-2022 History of Presen t illness Narrative Pt had 1st appointment with Dr Tammi Graham on 08/25/2022 3:04 PM by External Provider: Consultation - documented in this encounter [facility] 08-03-2022 Miscellaneous Notes Faxed. Anisa Dawkins MA documented in this encounter [facility] 08-01-2022 Miscellaneous Notes Left detailed message on a secured voicemail. Ale Grider Patient was already placed on Keflex symptoms should be getting better according to the culture. If symptoms are continuing to worsen patient should follow-up with primary care. documented in this encounter [facility] 07-30-2022 History of Presen t illness Narrative Patient presents with: Urinary Problem: Pt reported frequency, abd pressure, burning x3 days. HPI: Symptoms for 3 days. Dysuria: Yes, vaginal area feel like it is on fire when she urinates Frequency: Yes Hematuria: No Nausea: No, has diarrhea the last couple days Fever or chills: No Back pain: Yes Abdominal pain: pelvic pressure Prior UTI: Yes, treated for P mirabilis in April, May, and Jun. Had C diff in February and again this May. PAST MEDICAL HISTORY Diagnosis Date Acute gastritis Advance directive on file 09/10/2020 Class 1 obesity due to excess calories without serious comorbidity with body mass index (BMI) of 33.0 to 33.9 in adult 09/22/2017 Eczema 04/11/2018 Essential hypertension 09/17/2015 Hypothyroidism (acquired) 09/17/2015 Medicare annual wellness visit, subsequent 03/17/2017 Medicare Part B: 05/25/2012 last done: 04/11/2018 Migraine without aura and without status migrainosus, not intractable 09/17/2015 Mixed hyperlipidemia 09/17/2015 Osteoporosis intolerant of bisphosphonates Rosacea Seasonal allergies Varicose veins of both lower extremities 03/11/2021 with swelling on the left. PAST SURGICAL HISTORY Procedure Laterality Date COLONOSCOPY FLX DX W/COLLJ SPEC WHEN PFRMD 11/16/08 repeat due 2019 COLONOSCOPY FLX DX W/COLLJ SPEC WHEN PFRMD 06/05/2019 Colonoscopy ESOPHAGOGASTRODUODENOSCOPY TRANSORAL DIAGNOSTIC 11/12/99 EGD FECAL OCCULT BLOOD TEST 03/24/2017 TONSILLECTOMY HX ~1968 TOTAL ABDOMINAL HYSTERECT W/WO RMVL TUBE OVARY 1986 menorrhagia; 1 ovary intact MEDICATIONS: Current Outpatient Medications Medication Sig Lactobacillus acidophilus (PROBIOTIC ORAL) Take by mouth. propranolol ER (INDERAL LA) 80 mg 24 hr capsule Take 1 capsule by mouth once daily. ibuprofen 600 mg ORAL tablet Take 1 tablet by mouth every 6 hours as needed for Pain. CHOLECALCIFEROL (VITAMIN D3) 400 UNIT TAB Take two (2) by mouth once daily. magnesium oxide 400 mg cap Take by mouth once daily. No current facility-administered medications for this visit. ALLERGIES: ALLERGIES Allergen Reactions Sulfa (Sulfonamide * Rash Boniva [Ibandronate] Other: See Comments Diarrhea, leg cramps Fosamax [Alendronat* Other: See Comments Leg cramps VITALS: BP 130/76 Pulse 71 Temp 36.8 C (98.2 F) Resp 18 Wt 82.9 kg (182 lb 12.8 oz) SpO2 96% BMI 32.80 kg/m PHYSICAL EXAM: GEN: NAD HEENT: EOMI, conjunctiva clear, moist mucous membranes HEART: regular rate and rhythm, no murmurs LUNGS: clear to auscultation, no wheezes or crackles, no increased WOB ABDOMEN: Soft, nondistended, no masses, no suprapubic tenderness BACK: No CVA tenderness ASSESSMENT/PLAN: 1. Urinary frequency - ICD9: 788.41, ICD10: R35.0 (primary diagnosis) 2. Recurrent UTI (urinary tract infection) - ICD9: 599.0, ICD10: N39.0 3. Recurrent Clostridioides difficile infection - ICD9: 041.84, ICD10: A49.8 - UA DIP, URINE (POC) - small LE - URINE CULTURE Extended discussion about treatment considerations. Antibiotic use for UTI will put her at risk for c diff recurrence. Rx for - CEPHALEXIN 500 MG CAPSULE, she thinks she will hold off starting the medicine to see what the culture shows. She may take probiotics as recommended by Dr Amin. She discontinued the extended course of vancomycin prescribed by him because she read it can cause UTI as a side effect. I recommended urology consult for recurrent UTI. Michael Snell MD documented in this encounter [facility] 06-30-2022 History of Presen t illness Narrative Subjective HPI Sheridan Alvarado is a 77 year old female who presents with UTI symptoms of burning and frequency. She complains that this is due to the Vancomycin that a nurse practitioner prescribed her for C Difficile. She is supposed to take the medication for 100 days but states she's not going to take it and she called that nurse practitioner and told her so. She denies fever or chills. She denies hematuria. Review of Systems Constitutional: Negative for chills and fever. Respiratory: Negative. Cardiovascular: Negative. Gastrointestinal: Negative for abdominal pain, nausea and vomiting. Genitourinary: Positive for dysuria and frequency. Musculoskeletal: Positive for back pain. BP 136/80 Pulse 82 Temp 36.7 C (98.1 F) Resp 18 Wt 82.1 kg (181 lb) SpO2 97% BMI 32.48 kg/m PAST MEDICAL HISTORY Diagnosis Date Acute gastritis Advance directive on file 09/10/2020 Class 1 obesity due to excess calories without serious comorbidity with body mass index (BMI) of 33.0 to 33.9 in adult 09/22/2017 Eczema 04/11/2018 Essential hypertension 09/17/2015 Hypothyroidism (acquired) 09/17/2015 Medicare annual wellness visit, subsequent 03/17/2017 Medicare Part B: 05/25/2012 last done: 04/11/2018 Migraine without aura and without status migrainosus, not intractable 09/17/2015 Mixed hyperlipidemia 09/17/2015 Osteoporosis intolerant of bisphosphonates Rosacea Seasonal allergies Varicose veins of both lower extremities 03/11/2021 with swelling on the left. PAST SURGICAL HISTORY Procedure Laterality Date COLONOSCOPY FLX DX W/COLLJ SPEC WHEN PFRMD 11/16/08 repeat due 2019 COLONOSCOPY FLX DX W/COLLJ SPEC WHEN PFRMD 06/05/2019 Colonoscopy ESOPHAGOGASTRODUODENOSCOPY TRANSORAL DIAGNOSTIC 11/12/99 EGD FECAL OCCULT BLOOD TEST 03/24/2017 TONSILLECTOMY HX ~1968 TOTAL ABDOMINAL HYSTERECT W/WO RMVL TUBE OVARY 1986 menorrhagia; 1 ovary intact ALLERGIES Sulfa (Sulfonamide Antibiotics), Boniva [Ibandronate], and Fosamax [Alendronate Sodium] MEDICATIONS Lactobacillus acidophilus (PROBIOTIC ORAL) Take by mouth. propranolol ER (INDERAL LA) 80 mg 24 hr capsule Take 1 capsule by mouth once daily. magnesium oxide 400 mg cap Take by mouth once daily. ibuprofen 600 mg ORAL tablet Take 1 tablet by mouth every 6 hours as needed for Pain. CHOLECALCIFEROL (VITAMIN D3) 400 UNIT TAB Take two (2) by mouth once daily. cephALEXin (KEFLEX) 500 mg capsule Take 1 capsule by mouth twice daily for 10 days. vancomycin (VANCOCIN) 125 mg capsule (Patient not taking: Reported on 05/29/2022 ) Tfufwyeofoxizoq-Tdbdduwks-VV (BROMFED DM) 2-30-10 mg/5 mL syrup Take 5 mL by mouth four times daily as needed. (Patient not taking: Reported on 03/17/2022 ) FAMILY HISTORY Problem Relation Age of Onset Cancer Father lung, smoker Alzheimer's Disease Mother Ischemic Heart Disease Paternal Grandfather other (guillain barre) Son patient refuses flu shots now Social History Tobacco Use Smoking status: Never Smokeless tobacco: Never Substance Use Topics Alcohol use: No Drug use: No Objective Physical Exam Vitals and nursing note reviewed. Constitutional: Appearance: She is obese. Cardiovascular: Rate and Rhythm: Normal rate and regular rhythm. Heart sounds: Normal heart sounds. Pulmonary: Effort: Pulmonary effort is normal. No respiratory distress. Breath sounds: Normal breath sounds. No wheezing or rales. Abdominal: Tenderness: There is no right CVA tenderness or left CVA tenderness. Skin: General: Skin is warm and dry. Neurological: Mental Status: She is alert. ASSESSMENT/PLAN: 1. Urinary frequency - ICD9: 788.41, ICD10: R35.0 acute - UA positive for delphine esterase, hematuria, and proteinuria - Send urine for culture - Begin treatment with cephalexin for 10 days - Patient education for prevention given - UA DIP, URINE (POC) - URINE CULTURE - CEPHALEXIN 500 MG CAPSULE - Follow-up with your PCP in 3-5 days if symptoms have not improved or sooner if symptoms worsen - Discussed red flags and need for immediate medical evaluation if any occur. - Discussed supportive care treatment with fluids, rest and analgesia. - Discussed expected course of illness Nicolette Agustin APRN.CNP documented in this encounter [facility] 06-30-2022 Instructions Nicolette Agustin APRN.CNP - 06/30/2022 2:53 PM EDT ASSESSMENT/PLAN: 1. Urinary frequency - ICD9: 788.41, ICD10: R35.0 acute - UA positive for delphine esterase, hematuria, and proteinuria - Send urine for culture - Begin treatment with cephalexin for 10 days - Patient education for prevention given - UA DIP, URINE (POC) - URINE CULTURE - CEPHALEXIN 500 MG CAPSULE - Follow-up with your PCP in 3-5 days if symptoms have not improved or sooner if symptoms worsen - Discussed red flags and need for immediate medical evaluation if any occur. - Discussed supportive care treatment with fluids, rest and analgesia. - Discussed expected course of illness Nicolette Agustin APRN.CNP [facility] PATIENT INFO BLADDER INFECTION OVERVIEW Bladder infections are one of the most common infections, causing symptoms of burning with urination and needing to urinate frequently. A bladder infection is a type of urinary tract infection (UTI). Bladder infections are more common is women than men. Most women have an uncomplicated bladder infection that is easily treated with a short course of antibiotics. In men, bladder infections may also affect the prostate gland, and a longer course of treatment may be needed. BLADDER INFECTION CAUSES The urinary tract includes the kidneys (which filter urine), ureters (the tube that carries urine from the kidneys to the bladder), the bladder (which stores urine), and urethra (the tube that carries urine out of the bladder). Bacteria do not normally live in these areas. However, bacteria normally live close to the urethra in women and men who are not circumcised. Bladder infections occur when bacteria travel up the urethra into the bladder. Factors that increase the risk of developing a bladder infection include: Vaginal sex Use of spermicides History of past bladder infections Diabetes In men, not being circumcised or having anal sex increase the risk of bladder infections. BLADDER INFECTION SYMPTOMS The typical symptoms of a bladder infection include: Pain or burning when urinating Frequent need to urinate Urgent need to urinate Blood in the urine Fever, back pain, nausea, or vomiting are not common symptoms of a bladder infection, but can occur in people with a kidney infection (pyelonephritis). If you have these symptoms, you should call your doctor or nurse immediately. Is it a bladder infection or something else? -- Burning with urination can also occur in people with vaginitis (eg, yeast infection) or urethritis (inflammation of the urethra). For this reason, it is important to call your healthcare provider before assuming you have a bladder infection. BLADDER INFECTION DIAGNOSIS Simple bladder infections are usually diagnosed based upon your symptoms alone. However, most patients, especially those who have bladder infection symptoms for the first time, should see a healthcare provider for urine testing. Urine culture -- A urine culture is a test that uses a sample of urine to try and grow bacteria in a laboratory. It usually requires about 48 hours to get results. However, a urine culture is not always required to diagnose a bladder infection. Urine culture is often recommended if: You have never had a bladder infection before You have symptoms that are not typical for bladder infection You have had resistant bladder infections before You have frequent bladder infections You do not begin to feel better within 24 to 48 hours after starting antibiotics You are BLADDER INFECTION TREATMENT Bladder infection -- In young, healthy adolescents and adults with a bladder infection, the usual treatment includes a three to seven day course of antibiotics. The typical drugs chosen are: trimethoprim-sulfamethoxazole (Bactrim ), nitrofurantoin (Macrobid ), ciprofloxacin (Cipro ) or levofloxacin (Levaquin ). In men, the infection may involve your prostate gland and treatment is usually given for at least 7 days. Your symptoms should begin to resolve within one day after starting treatment. It is important to take the full course of antibiotics to completely eliminate the infection. If your symptoms persist for more than two or three days after starting treatment, call your healthcare provider. If needed, you can take a prescription medication that numbs the bladder and urethra (phenazopyridine [Pyridium ]) to reduce the burning pain of some UTIs. A similar medication is available without a prescription (eg, Uristat). Both medications change the color of the urine (usually blue or orange) and can interfere with laboratory testing. You should not take these medications for more than 48 hours due to the risk of side effects. These medications do not treat the infection and must be taken along with an antibiotic. Some providers recommend drinking more fluids while treating bladder infections to help flush bacteria from the bladder. Others believe that drinking more fluids may dilute the antibiotic in the bladder and make the medication less effective. No studies have been performed to address this issue. There are also no good studies on the effectiveness of cranberry juice for treating a bladder infection; we do not recommend using cranberry juice to treat bladder infections. Follow-up care -- Follow-up testing is not needed in healthy, young men or women with a bladder infection if symptoms resolve. women are usually asked to have a repeat urine culture one to two weeks after treatment has ended to make sure the bacteria are no longer in the urine. RECURRENT BLADDER INFECTIONS Bladder infections versus other causes -- Some adults, especially women, develop bladder infections frequently. In this case, it is important to confirm that your symptoms (eg, pain or burning, frequency, and urgency) are caused by a bladder infection. Symptoms are usually similar from one infection to another. The best way to confirm an infection is to have a urine culture. If your urine culture is negative for infection, other causes of pain, burning, and frequency should be investigated. There is no reason to take antibiotics if your urine culture is negative. Need for further testing -- If you continue to develop bladder infections, you may require further testing. If you continue to notice blood in your urine after your bladder infection has cleared, you should have further testing. Preventing recurrent UTIs -- Women with recurrent urinary tract infections may be advised to take steps to prevent bladder infections, including one or more of the following: Changes in control -- Women who develop frequent bladder infections and use spermicides, particularly those who also use a diaphragm, may be encouraged to use an alternate method of control. Cranberry products -- Taking cranberry juice or cranberry tablets has been promoted as one way to help prevent frequent bladder infections. However, this has not been proven. Drinking more fluid and urinating after intercourse -- Although studies have not proven that drinking more fluids or urinating soon after intercourse can prevent infection, some healthcare providers recommend these measures since they are not harmful. Drinking more fluid may help to wash out bacteria that enter the bladder. Postmenopausal women -- Postmenopausal women who develop recurrent bladder infections may benefit from using vaginal estrogen. Vaginal estrogen is available in a flexible ring that is worn in the vagina for three months (eg, Estring ), a small tablet (Vagifem ), or a cream (eg, Premarin or Estrace ). Vaginal estrogen is discussed in more detail in a separate topic review. Antibiotics -- A preventive antibiotic treatment may be recommended if you repeatedly develop bladder infections and have not responded to other preventive measures. Antibiotics are highly effective in preventing recurrent bladder infections and can be taken in several different ways. Preventive antibiotic -- You can take a low dose of an antibiotic once per day or three times per week for six months to several years. Antibiotics following intercourse -- In women who develop urinary tract infections after sex, taking a single low dose antibiotic after intercourse can help to prevent bladder infections. Self-treatment -- A plan to begin antibiotics at the first sign of a bladder infection may be recommended in some situations. Before starting this regimen, it is important that you have had testing (urine cultures) to confirm that your symptoms are caused by a bladder infection; some people have symptoms of a bladder infection but do not actually have an infection. documented in this encounter [facility] 05-17-2022 Miscellaneous Notes Urine culture reveals growth resistant to the prescribed Macrobid Attempted to reach out to patient, spoke with her who will have patient return call. Please discuss the above with patient and that she should stop the Macrobid Start taking Keflex that was called into [facility] Follow up with Dr. Yip documented in this encounter [facility] 05-15-2022 History of Presen t illness Narrative This note was created using [employer]. Subjective Sheridan Alvarado is a 76 year old female. HPI Patient presents with urinary frequency urgency and dysuria since this morning. Some mild low back pain. Denies abdominal pain. No fever or vomiting. She has had UTIs previously and this feels similar. Review of Systems Constitutional: Negative. HENT: Negative. Eyes: Negative. Respiratory: Negative. Cardiovascular: Negative. Gastrointestinal: Negative for abdominal pain, diarrhea, nausea and vomiting. Genitourinary: Positive for dysuria, frequency and urgency. Negative for hematuria, menstrual problem and pelvic pain. Musculoskeletal: Positive for back pain. All other systems reviewed and are negative. PAST MEDICAL HISTORY Diagnosis Date Acute gastritis Advance directive on file 09/10/2020 Class 1 obesity due to excess calories without serious comorbidity with body mass index (BMI) of 33.0 to 33.9 in adult 09/22/2017 Eczema 04/11/2018 Essential hypertension 09/17/2015 Hypothyroidism (acquired) 09/17/2015 Medicare annual wellness visit, subsequent 03/17/2017 Medicare Part B: 05/25/2012 last done: 04/11/2018 Migraine without aura and without status migrainosus, not intractable 09/17/2015 Mixed hyperlipidemia 09/17/2015 Osteoporosis intolerant of bisphosphonates Rosacea Seasonal allergies Varicose veins of both lower extremities 03/11/2021 with swelling on the left. Current Outpatient Medications Medication Sig Dispense Refill Lactobacillus acidophilus (PROBIOTIC ORAL) Take by mouth. vancomycin (VANCOCIN) 125 mg capsule propranolol ER (INDERAL LA) 80 mg 24 hr capsule Take 1 capsule by mouth once daily. 90 capsule 3 ibuprofen 600 mg ORAL tablet Take 1 tablet by mouth every 6 hours as needed for Pain. 0 CHOLECALCIFEROL (VITAMIN D3) 400 UNIT TAB Take two (2) by mouth once daily. 0 nitrofurantoin monohydrate and macrocrystal (MACROBID) 100 mg capsule Take 1 capsule by mouth twice daily with meals for 5 days. 10 capsule 0 Kyajqliydfcfkod-Mfkpmtkvb-QJ (BROMFED DM) 2-30-10 mg/5 mL syrup Take 5 mL by mouth four times daily as needed. (Patient not taking: Reported on 03/17/2022 ) 120 mL 0 magnesium oxide 400 mg cap Take by mouth once daily. No current facility-administered medications for this visit. PAST SURGICAL HISTORY Procedure Laterality Date COLONOSCOPY FLX DX W/COLLJ SPEC WHEN PFRMD 11/16/08 repeat due 2019 COLONOSCOPY FLX DX W/COLLJ SPEC WHEN PFRMD 06/05/2019 Colonoscopy ESOPHAGOGASTRODUODENOSCOPY TRANSORAL DIAGNOSTIC 11/12/99 EGD FECAL OCCULT BLOOD TEST 03/24/2017 TONSILLECTOMY HX ~1968 TOTAL ABDOMINAL HYSTERECT W/WO RMVL TUBE OVARY 1985 menorrhagia; 1 ovary intact FAMILY HISTORY Problem Relation Age of Onset Cancer Father lung, smoker Alzheimer's Disease Mother Ischemic Heart Disease Paternal Grandfather other (guillain barre) Son patient refuses flu shots now Social History Tobacco Use Smoking status: Never Smoker Smokeless tobacco: Never Used Substance Use Topics Alcohol use: No Drug use: No Objective BP 124/78 Pulse 65 Temp 36.5 C (97.7 F) Resp 20 Wt 82.9 kg (182 lb 12.8 oz) SpO2 97% BMI 32.80 kg/m Physical Exam Vitals reviewed. Constitutional: Appearance: Normal appearance. HENT: Head: Normocephalic and atraumatic. Cardiovascular: Rate and Rhythm: Normal rate and regular rhythm. Heart sounds: Normal heart sounds. Pulmonary: Effort: Pulmonary effort is normal. Breath sounds: Normal breath sounds. Abdominal: General: Abdomen is flat. Palpations: Abdomen is soft. Tenderness: There is no abdominal tenderness. There is no right CVA tenderness or left CVA tenderness. Skin: General: Skin is warm and dry. Neurological: Mental Status: She is alert. Assessment and Plan ASSESSMENT/PLAN: 1. Burning with urination - ICD9: 788.1, ICD10: R30.0 acute - UA positive for delphine esterase and hematuria - Send urine for culture - Begin treatment with Macrobid 100 mg BID for 5 days - UA DIP, URINE (POC) - URINE CULTURE Leticia Interiano PA-C documented in this encounter [facility] 04-21-2022 History of Presen t illness Narrative Images from the original note were not included. Subjective Sheridan Alvarado is a 76 year old female who presents with a rash to bilateral lower legs. She reports this began approximately 1 month ago. States rash continues to spread across the lower legs. Reports itchiness associated with the area. Denies fever, chills, shortness of breath. Denies new soaps, lotions, detergents. Denies taking any medications for the itchiness. Reports a history of self-diagnosed scabies for which she feels this is similar. Review of Systems Constitutional: Negative for chills and fever. Respiratory: Negative for shortness of breath. Cardiovascular: Negative for chest pain. Skin: Positive for itching and rash. Neurological: Negative for tingling. BP 126/82 Pulse 74 Temp 36.4 C (97.5 F) Resp 16 Wt 82.4 kg (181 lb 9.6 oz) SpO2 96% BMI 32.58 kg/m PAST MEDICAL HISTORY Diagnosis Date Acute gastritis Advance directive on file 09/10/2020 Class 1 obesity due to excess calories without serious comorbidity with body mass index (BMI) of 33.0 to 33.9 in adult 09/22/2017 Eczema 04/11/2018 Essential hypertension 09/17/2015 Hypothyroidism (acquired) 09/17/2015 Medicare annual wellness visit, subsequent 03/17/2017 Medicare Part B: 05/25/2012 last done: 04/11/2018 Migraine without aura and without status migrainosus, not intractable 09/17/2015 Mixed hyperlipidemia 09/17/2015 Osteoporosis intolerant of bisphosphonates Rosacea Seasonal allergies Varicose veins of both lower extremities 03/11/2021 with swelling on the left. PAST SURGICAL HISTORY Procedure Laterality Date COLONOSCOPY FLX DX W/COLLJ SPEC WHEN PFRMD 11/16/08 repeat due 2018 COLONOSCOPY FLX DX W/COLLJ SPEC WHEN PFRMD 06/05/2019 Colonoscopy ESOPHAGOGASTRODUODENOSCOPY TRANSORAL DIAGNOSTIC 11/12/99 EGD FECAL OCCULT BLOOD TEST 03/24/2017 TONSILLECTOMY HX ~1968 TOTAL ABDOMINAL HYSTERECT W/WO RMVL TUBE OVARY 1985 menorrhagia; 1 ovary intact ALLERGIES Sulfa (Sulfonamide Antibiotics), Boniva [Ibandronate], and Fosamax [Alendronate Sodium] MEDICATIONS vancomycin (VANCOCIN) 125 mg capsule propranolol ER (INDERAL LA) 80 mg 24 hr capsule Take 1 capsule by mouth once daily. magnesium oxide 400 mg cap Take by mouth once daily. ibuprofen 600 mg ORAL tablet Take 1 tablet by mouth every 6 hours as needed for Pain. CHOLECALCIFEROL (VITAMIN D3) 400 UNIT TAB Take two (2) by mouth once daily. triamcinolone (KENALOG) 0.025 % cream Apply to affected area twice daily for 10 days. permethrin (ELIMITE) 5 % cream Apply 1 application to affected area one time only for 1 dose. massage into skin from neck to feet, leave on 8-12hrs, wash off; Info: repeat 2wks if live mites persist. Itching may persist after effective treatment. Qclasltntiiebsv-Vguafnenc-JC (BROMFED DM) 2-30-10 mg/5 mL syrup Take 5 mL by mouth four times daily as needed. FAMILY HISTORY Problem Relation Age of Onset Cancer Father lung, smoker Alzheimer's Disease Mother Ischemic Heart Disease Paternal Grandfather other (guillain barre) Son patient refuses flu shots now Social History Tobacco Use Smoking status: Never Smoker Smokeless tobacco: Never Used Substance Use Topics Alcohol use: No Drug use: No Objective Physical Exam Vitals and nursing note reviewed. Constitutional: Appearance: Normal appearance. Cardiovascular: Rate and Rhythm: Normal rate and regular rhythm. Pulmonary: Effort: Pulmonary effort is normal. Breath sounds: Normal breath sounds. Skin: General: Skin is warm. Findings: Rash present. Rash is macular and papular. Neurological: Mental Status: She is alert and oriented to person, place, and time. ASSESSMENT/PLAN: 1. Rash - ICD9: 782.1, ICD10: R21 - Patient insists on treatment for scabies despite rash non-consistent with scabies rash. - TRIAMCINOLONE ACETONIDE 0.025 % TOPICAL CREAM - PERMETHRIN 5 % TOPICAL CREAM SUZE [employer] student TEACHING PROVIDER (Physician/PA/ROLLER REPAIRER) NOTE OF PERSONAL INVOLVEMENT IN CARE: I have personally seen and examined the patient and performed the medical decision-making components. I have reviewed the Advanced Practice Registered Nurse (ROLLER REPAIRER) Student's documentation and verified the findings in the note as written. Any additions or changes are noted in bold/italics. Signature: Nicolette Agustin Date: 04/21/2022 Time: 1:52 PM documented in this encounter [facility] 04-21-2022 Instructions Ashia Cagle - 04/21/2022 1:06 PM EDT ASSESSMENT/PLAN: 1. Rash - ICD9: 782.1, ICD10: R21 - Patient insists on treatment for scabies despite rash non-consistent with scabies. - TRIAMCINOLONE ACETONIDE 0.025 % TOPICAL CREAM - PERMETHRIN 5 % TOPICAL CREAM SUZE [employer] student SCABIES: Scabies is an itchy rash caused by an extremely tiny insect, or mite. The areas of the body most commonly involved are the hands, abdomen, genitals, and thighs. Scabies is spread by direct body contact, or from sharing personal items such as clothes, bed linen, and towels. Treatment for scabies includes: Elimite, or Eurax cream should be used as directed on the package after showering, covering the entire body from the neck to the toes. Leave it on for 8-12 hours. Note: Kwell should not be used on women who are or nursing, or on infants or small children. Consult with your doctor for alternative therapy. Clothing, sheets, pillow cases, and towels should be washed in hot water and machine-dried. Articles which cannot be laundered this way should be drycleaned or put away for 3 days. Over the counter hydrocortisone cream used after a bath or antihistimine medication may be helpful in reducing the itching. The itching can remain present for up to a week after successful treatment. Do not drive or operate heavy machinery while taking antihistamines. Clip your fingernails short and try to avoid scratching the sores. Use cortisone and moisturizer creams after treatment to reduce the itching. Call your doctor right away if your rash looks infected with sores that get larger or drain pus. documented in this encounter [facility] 03-19-2022 Miscellaneous Notes Patient notified of results and provider's instructions. Patient verbalizes understanding. Korey Garcia LPN Let patient know that she does have c. Diff. Will have her start vacomycin 4 times a day for 10 days. Let us know if diarrhea does not resolve. Samir Sahni PA-C documented in this encounter [facility] 03-17-2022 History of Presen t illness Narrative Chief Complaint Patient presents with: F/U 6 Month HPI Sheridan Alvarado is a 76 year old female who presents here today for Chronic Medical Conditions.. Patient with hx of HTN, HLP, Migraine, rosacea, osteoporosis, obesity, and those as below. Patient was seen in ER for lower abdominal pain 02/23. Was dx with colitis and was given a cipro/flagyl combo per recommendation from Gastro. She has a f/u with Dr. Amin but not until April 07. She does have some symptoms lingering however not to the same extent as the original visit to ER. She continues to have irregular stool. She will have loose stool and abdominal cramping consistently and is worse with food. She didn't eat today because she knew she would have to find a bathroom. Otherwise doing okay. Past medical history, appointments, medications, allergies reviewed. Previous Medical History PAST MEDICAL HISTORY Diagnosis Date Acute gastritis Advance directive on file 09/10/2020 Class 1 obesity due to excess calories without serious comorbidity with body mass index (BMI) of 33.0 to 33.9 in adult 09/22/2017 Eczema 04/11/2018 Essential hypertension 09/17/2015 Hypothyroidism (acquired) 09/17/2015 Medicare annual wellness visit, subsequent 03/17/2017 Medicare Part B: 05/25/2012 last done: 04/11/2018 Migraine without aura and without status migrainosus, not intractable 09/17/2015 Mixed hyperlipidemia 09/17/2015 Osteoporosis intolerant of bisphosphonates Rosacea Seasonal allergies Varicose veins of both lower extremities 03/11/2021 with swelling on the left. Previous Surgical History PAST SURGICAL HISTORY Procedure Laterality Date COLONOSCOPY FLX DX W/COLLJ SPEC WHEN PFRMD 11/16/08 repeat due 2018 COLONOSCOPY FLX DX W/COLLJ SPEC WHEN PFRMD 06/05/2019 Colonoscopy ESOPHAGOGASTRODUODENOSCOPY TRANSORAL DIAGNOSTIC 11/12/99 EGD FECAL OCCULT BLOOD TEST 03/24/2017 TONSILLECTOMY HX ~1967 TOTAL ABDOMINAL HYSTERECT W/WO RMVL TUBE OVARY 1985 menorrhagia; 1 ovary intact Family History FAMILY HISTORY Problem Relation Age of Onset Cancer Father lung, smoker Alzheimer's Disease Mother Ischemic Heart Disease Paternal Grandfather other (guillain barre) Son patient refuses flu shots now Patient Allergies ALLERGIES Allergen Reactions Sulfa (Sulfonamide * Rash Boniva [Ibandronate] Other: See Comments Diarrhea, leg cramps Fosamax [Alendronat* Other: See Comments Leg cramps Current Medications Current Outpatient Medications on File Prior to Visit Medication Sig propranolol ER (INDERAL LA) 80 mg 24 hr capsule Take 1 capsule by mouth once daily. magnesium oxide 400 mg cap Take by mouth once daily. ibuprofen 600 mg ORAL tablet Take 1 tablet by mouth every 6 hours as needed for Pain. CHOLECALCIFEROL (VITAMIN D3) 400 UNIT TAB Take two (2) by mouth once daily. Yfvqdeftljaqlzg-Shfrdqhjs-SK (BROMFED DM) 2-30-10 mg/5 mL syrup Take 5 mL by mouth four times daily as needed. (Patient not taking: Reported on 03/17/2022 ) No current facility-administered medications on file prior to visit. Social History Social History Tobacco Use Smoking status: Never Smoker Smokeless tobacco: Never Used Substance Use Topics Alcohol use: No Drug use: No Review of Symptoms REVIEW OF SYSTEMS GENERAL: No weight loss, malaise or fevers NECK: Negative for lumps, goiter, pain and significant neck swelling RESPIRATORY: Negative for cough, hemoptysis, wheezing, COPD, dyspnea or shortness of breath CARDIOVASCULAR: Negative for chest pain, leg swelling, CHF or palpitations GI: See HPI NEURO: No history of headaches, syncope, paralysis, seizures or tremors EXAM: BP 130/80 (BP Site: Right Arm, BP Position: Sitting, BP Cuff Size: Large Adult) Pulse 68 Temp 37.2 C (99 F) Resp 16 Wt 83.5 kg (184 lb) BMI 33.01 kg/m General Appearance: Well appearing, alert, in no acute distress, well-hydrated, well nourished.. Neck: Supple, no adenopathy; thyroid symmetric, normal size, no bruits. Lungs: Lungs clear to auscultation. No wheezing, rhonchi, rales.. Heart: RRR without murmur, gallop, or rubs. No ectopy. Abdomen: Normal abdominal exam, Abdomen soft, non-tender. Bowel sounds normal. No masses, organomegaly. Extremities: No deformities, edema, skin discoloration, clubbing or cyanosis. Good capillary refill. . Peripheral Pulses: Normal. Health Maintenance List MAMMOGRAM due on 10/24/2021 ADVANCE DIRECTIVE DISCUSSION Never done BP CONTROLLED (<130/80) due on 03/11/2022 ANNUAL PCP TEAM CHRONIC DISEASE VISIT due on 09/17/2022 DIABETES SCREEN due on 09/11/2024 LIPID SCREEN due on 03/12/2027 DTAP,TDAP,TD(3 - Td or Tdap) due on 09/29/2027 COLORECTAL CANCER SCREENING due on 06/05/2029 BONE DENSITY Completed INFLUENZA Completed SHINGRIX VACCINE Completed COVID-19 VACCINE Completed PNEUMOCOCCAL: 65+ Completed HEPATITIS C SCREENING Discontinued DEPRESSION SCREENING Discontinued Data reviewed Component Latest Ref Rng & Units 09/11/2021 03/12/2022 WBC 3.70 - 11.00 k/uL 7.63 RBC 3.90 - 5.20 m/uL 5.38 (H) Hemoglobin 11.5 - 15.5 g/dL 15.4 Hematocrit 36.0 - 46.0 % 49.1 (H) MCV 80.0 - 100.0 fL 91.3 MCH 26.0 - 34.0 pG 28.6 MCHC 30.5 - 36.0 g/dL 31.4 RDW-CV 11.5 - 15.0 % 13.1 Platelet Count 150 - 400 k/uL 234 MPV 9.0 - 12.7 fL 10.5 Neut% % 60.3 Abs Neut (ANC) 1.45 - 7.50 k/uL 4.58 Lymph% % 23.9 Abs Lymph 1.00 - 4.00 k/uL 1.82 [place]% % 9.8 Abs [place] <0.87 k/uL 0.75 Eosin% % 5.0 Abs Eosin <0.46 k/uL 0.38 Baso% % 1.0 Abs Baso <0.11 k/uL 0.08 Nucleated Reds 0 /100 WBC 0.0 Absolute nRBC <0.01 k/uL <0.01 Diff Type Auto Diff Protein, Total 6.3 - 8.0 g/dL 6.8 Albumin 3.9 - 4.9 g/dL 4.2 Calcium 8.5 - 10.2 mg/dL 9.4 Bilirubin, Total 0.2 - 1.3 mg/dL 0.4 Alkaline Phosphatase 34 - 123 U/L 74 AST 13 - 35 U/L 18 Glucose 74 - 99 mg/dL 80 BUN 7 - 21 mg/dL 20 Creatinine 0.58 - 0.96 mg/dL 0.58 Sodium 136 - 144 mmol/L 140 Potassium 3.7 - 5.1 mmol/L 4.8 Chloride 97 - 105 mmol/L 104 CO2 22 - 30 mmol/L 27 Anion Gap 9 - 18 mmol/L 9 ALT 7 - 38 U/L 14 eGFR- >60 eGFR-All Other Races . >60 Color Yellow Yellow Clarity Clear Clear Glucose, Urine Negative mg/dL Negative Bilirubin, Urine Negative Negative Ketones, Urine Negative Negative Specific [place], Ur 1.005 - 1.030 1.018 Hemoglobin/Blood,Ur Negative Negative pH, Urine 5.0 - 8.0 7.0 Protein, Urine Negative Negative Urobilinogen Negative E.U./dL Negative Nitrites Negative Negative Leukest Negative Negative Comment SEE COMMENT Urine Neo Comment SEE COMMENT WBC, Urine 0 - 5 /HPF 0-5 RBC, Urine 0 - 3 /HPF 0-3 Epithelial Cells /HPF SEE COMMENT Total Cholesterol, Nonfasting <200 mg/dL 220 (H) 219 (H) Triglycerides, Nonfasting <150 mg/dL 131 74 HDL Cholesterol, Nonfasting >39 mg/dL 64 55 LDL Cholesterol, Nonfasting <100 mg/dL 130 (H) 149 (H) Non HDL Cholesterol, Nonfasting <130 mg/dL 156 (H) 164 (H) VLDL Cholesterol, Nonfasting <30 mg/dL 26 15 Total Chol/HDL Ratio, Nonfasting <5.10 mg/dL 3.44 3.98 LDL/HDL Ratio, Nonfasting <2.54 mg/dL 2.03 2.71 (H) TSH 0.270 - 4.200 mIU/L 2.230 2.760 ASSESSMENT/PLAN: 1. Essential hypertension - ICD9: 401.9, ICD10: I10 (primary diagnosis) - good control - Continue current medication(s) - Recommended regular aerobic exercise. - Recommend home blood pressure monitoring, to bring results in on next visit - Goal of BP <130/80 - URINALYSIS, WITH MICROSCOPIC - CBC + DIFF - COMP METABOLIC PANEL 2. Mixed hyperlipidemia - ICD9: 272.2, ICD10: E78.2 - suboptimal control - Encouraged following a low fat, low cholesterol diet. - Discussed the benefits of regular aerobic exercise and weight loss. - Encouraged following a low carbohydrate, healthy oil intake diet. - Continue current therapy. - CBC + DIFF - LIPID PANEL, NONFASTING 3. Hypothyroidism (acquired) - ICD9: 244.9, ICD10: E03.9 - Instructed patient on importance of taking on an empty stomach either first thing in the morning or at bedtime. Stable - TSH BLD 4. Migraine without aura and without status migrainosus, not intractable - ICD9: 346.10, ICD10: G43.009 stable 5. Class 1 obesity due to excess calories without serious comorbidity with body mass index (BMI) of 33.0 to 33.9 in adult - ICD9: 278.00, V85.33, ICD10: E66.09, Z68.33 Stable - Behavioral intervention 6. Age-related osteoporosis without current pathological fracture - ICD9: 733.01, ICD10: M81.0 - Reviewed the need for Calcium and Vitamin D supplements and weight bearing exercise as tolerated 7. Diarrhea, unspecified type - ICD9: 787.91, ICD10: R19.7 No red flags on exam Will get stool cultures Keep f/u with gastro. - C. DIFFICILE PCR - ENTERIC BACTERIAL PANEL BY PCR Samir Sahni PA-C documented in this encounter [facility] 02-24-2022 Miscellaneous Notes Immunization records updated documented in this encounter [facility] 02-23-2022 History of Presen t illness Narrative Please see results. Anisa Dawkins MA Scan on 02/23/2022 3:12 PM by External Provider: CT Scan documented in this encounter [facility] 02-04-2022 History of Presen t illness Narrative CC: Patient presents with: Cough: sore throat x 1 week HPI: Sheridan Alvarado is a 76 year old female who presents to the office with complaint of respiratory symptoms, head congestion, cough, nonproductive and sore throat for a week. Symptoms are worsening Associated symptoms includes not sleeping well. Denies headache, body aches, fever, nausea, vomiting and diarrhea. Treatments tried include Codeine cough syrup with minor relief of symptoms. Sick contacts: unknown. History of asthma, frequent episodes of bronchitis, chronic bronchitis, bronchiectasis or COPD: No Smoker: No Seasonal/environmental allergies: No The ROS is otherwise negative. The patient's pmh, medications, allergies, and past visits are reviewed. PHYSICAL EXAM: BP 124/80 Pulse 70 Temp 36.7 C (98.1 F) Resp 21 Wt 85.9 kg (189 lb 6.4 oz) SpO2 98% BMI 33.98 kg/m General appearance: alert, cooperative, pleasant, in no acute distress Head: Normocephalic Eyes: EOM's intact, conjunctiva pink and moist, no icterus, sclera white, non-injected Ears: Right ear: External ear/canal- Normal, TM - clear with good landmarks. Left ear: External ear/canal- Normal, TM - clear with good landmarks Oropharynx:moist without lesions, No erythema, exudates or tonsillar hypertrophy. Heart: Negative. RRR without obvious murmur, gallop, or rubs. No ectopy. Lungs: clear to auscultation, without rales or wheeze, good air exchange PAST MEDICAL HISTORY Diagnosis Date Acute gastritis Advance directive on file 09/10/2020 Class 1 obesity due to excess calories without serious comorbidity with body mass index (BMI) of 33.0 to 33.9 in adult 09/22/2017 Eczema 04/11/2018 Essential hypertension 09/17/2015 Hypothyroidism (acquired) 09/17/2015 Medicare annual wellness visit, subsequent 03/17/2017 Medicare Part B: 05/25/2012 last done: 04/11/2018 Migraine without aura and without status migrainosus, not intractable 09/17/2015 Mixed hyperlipidemia 09/17/2015 Osteoporosis intolerant of bisphosphonates Rosacea Seasonal allergies Varicose veins of both lower extremities 03/11/2021 with swelling on the left. PAST SURGICAL HISTORY Procedure Laterality Date COLONOSCOPY FLX DX W/COLLJ SPEC WHEN PFRMD 11/16/08 repeat due 2019 COLONOSCOPY FLX DX W/COLLJ SPEC WHEN PFRMD 06/05/2019 Colonoscopy ESOPHAGOGASTRODUODENOSCOPY TRANSORAL DIAGNOSTIC 11/12/99 EGD FECAL OCCULT BLOOD TEST 03/24/2017 TONSILLECTOMY HX ~1968 TOTAL ABDOMINAL HYSTERECT W/WO RMVL TUBE OVARY 1986 menorrhagia; 1 ovary intact ALLERGIES Sulfa (Sulfonamide Antibiotics), Boniva [Ibandronate], and Fosamax [Alendronate Sodium] MEDICATIONS propranolol ER (INDERAL LA) 80 mg 24 hr capsule Take 1 capsule by mouth once daily. magnesium oxide 400 mg cap Take by mouth once daily. ibuprofen 600 mg ORAL tablet Take 1 tablet by mouth every 6 hours as needed for Pain. CHOLECALCIFEROL (VITAMIN D3) 400 UNIT TAB Take two (2) by mouth once daily. amoxicillin-clavulanic acid (AUGMENTIN) 875-125 mg per tablet Take 1 tablet by mouth twice daily for 5 days. Uspqasmhxwuahfp-Mrmqaangr-IY (BROMFED DM) 2-30-10 mg/5 mL syrup Take 5 mL by mouth four times daily as needed. FAMILY HISTORY Problem Relation Age of Onset Cancer Father lung, smoker Alzheimer's Disease Mother Ischemic Heart Disease Paternal Grandfather other (guillain barre) Son patient refuses flu shots now Social History Tobacco Use Smoking status: Never Smoker Smokeless tobacco: Never Used Substance Use Topics Alcohol use: No Drug use: No ASSESSMENT/PLAN: 1. Cough - ICD9: 786.2, ICD10: R05.9 Prescription instructions reviewed with patient as applicable. Augmenting bid for 5 days. bromfed PRN. Potential red flag symptoms discussed with the patient. Reviewed appropriate action plan to take if red flag symptoms occur. Patient agreeable to treatment plan. Rebeca Dawkins APRN.MELY documented in this encounter [facility] 02-04-2022 Instructions Rebeca Dawkins APRN.CNP - 02/04/2022 12:53 PM EDT 1.) Get more rest than you usually do - this will speed your recovery. If you push hard with your usual busy schedule, you will be sicker longer. 2.) Drink a lot of water - enough to make you urinate every 2-3 hours (your urine should be a light yellow color). This helps thin the phlegm and sooth the airways. Gatorade (G2) is less in sugar and replaces your electrolytes if not eating well. 3.) Run a cool mist humidifier in your bedroom on high with the door closed. This is a natural way to decongest, and it helps lessen scratchy throats, nasal stuffiness and coughs. 4.) For those without blood pressure concerns, take Sudafed as a decongestant (decreases stuffiness-lets drain), but realize that you will need to take it every 4-6 hours for several days. The lower dose is generally better tolerated (30mg)... Some people can make feel fast heart rate/jittery. You also may try anti-allergy pill like Claritin(loratidine) 10mg or сергей, benadryl (makes sleepy) over the counter as directed to help with drippy nose. Mucinex 600-1200mg twice daily(plain) may help thin secretions so they are easier to cough up. Those with high blood pressure and not with prostate problems can try [id number] Coricidin HBP for congestion. You may find nasal sprays such as Flonase or Nasacort, saline nasal spray and/or Netti Pot may be beneficial 5.) Take ibuprofen or acetominophen every 4-6 hours for pain/aches as needed if not contraindicated for you. Antibiotic as directed per prescription If you should breakout in a rash, stop the medicine and call the office. Any antibiotic has the potential to cause diarrhea due to alteration in the normal bacterial nettie of the gut. This can be reduced by eating yogurt with active cultures or taking probiotics daily while on the medication. If diarrhea becomes severe (watery, large volumes or more than 3-4/day) call the office. Women may experience yeast vaginitis due to alteration in the vaginal nettie. Symptoms include vaginal itching, irritation, and often a clumpy white discharge. If this occurs, there are several effective over the counter remedies available, including one-dose treatments. If these are unsuccessful, call the office. Antibiotics may interfer with control. If you are on oral contraceptives, use another form of protection (condoms, foams, jellies, diaphragm) throught the end of whatever pill pack you are on in 10 days. If you are not improving in 3-5 days or are worsening follow up with PCP documented in this encounter [facility] documented as of this encounter (statuses as of 02/04/2022) [facility] History of Past illness Narrative* Problem Noted Date Resolved Date Foot pain, right 10/22/2011 06/22/2012 Diarrhea 04/08/2010 10/22/2011 Unspecified sinusitis (chronic) 02/01/2009 10/22/2011 Migraine without aura 04/07/2007 01/13/2008 documented as of this encounter (statuses as of 02/23/2022) [facility] History of Past illness Narrative* Problem Noted Date Resolved Date Foot pain, right 10/22/2011 06/22/2012 Diarrhea 04/08/2010 10/22/2011 Unspecified sinusitis (chronic) 02/01/2009 10/22/2011 Migraine without aura 04/07/2007 01/13/2008 documented as of this encounter (statuses as of 02/24/2022) [facility] History of Past illness Narrative* Problem Noted Date Resolved Date Foot pain, right 10/22/2011 06/22/2012 Diarrhea 04/08/2010 10/22/2011 Unspecified sinusitis (chronic) 02/01/2009 10/22/2011 Migraine without aura 04/07/2007 01/13/2008 documented as of this encounter (statuses as of 03/17/2022) [facility] History of Past illness Narrative* Problem Noted Date Resolved Date Foot pain, right 10/22/2011 06/22/2012 Diarrhea 04/08/2010 10/22/2011 Unspecified sinusitis (chronic) 02/01/2009 10/22/2011 Migraine without aura 04/07/2007 01/13/2008 documented as of this encounter (statuses as of 03/19/2022) [facility] History of Past illness Narrative* Problem Noted Date Resolved Date Foot pain, right 10/22/2011 06/22/2012 Diarrhea 04/08/2010 10/22/2011 Unspecified sinusitis (chronic) 02/01/2009 10/22/2011 Migraine without aura 04/07/2007 01/13/2008 documented as of this encounter (statuses as of 04/21/2022) [facility] History of Past illness Narrative* Problem Noted Date Resolved Date Foot pain, right 10/22/2011 06/22/2012 Diarrhea 04/08/2010 10/22/2011 Unspecified sinusitis (chronic) 02/01/2009 10/22/2011 Migraine without aura 04/07/2007 01/13/2008 documented as of this encounter (statuses as of 05/15/2022) [facility]2011 History of Past illness Narrative* Problem Noted Date Resolved Date Foot pain, right 10/22/2011 06/22/2012 Diarrhea 04/08/2010 10/22/2011 Unspecified sinusitis (chronic) 02/01/2009 10/22/2011 Migraine without aura 04/07/2007 01/13/2008 documented as of this encounter (statuses as of 05/17/2022) [facility]2011 History of Past illness Narrative* Problem Noted Date Resolved Date Foot pain, right 10/22/2011 06/22/2012 Diarrhea 04/08/2010 10/22/2011 Unspecified sinusitis (chronic) 02/01/2009 10/22/2011 Migraine without aura 04/07/2007 01/13/2008 documented as of this encounter (statuses as of 05/26/2022) [facility] History of Past illness Narrative* Problem Noted Date Resolved Date Foot pain, right 10/22/2011 06/22/2012 Diarrhea 04/08/2010 10/22/2011 Unspecified sinusitis (chronic) 02/01/2009 10/22/2011 Migraine without aura 04/07/2007 01/13/2008 documented as of this encounter (statuses as of 06/30/2022) [facility]2011 History of Past illness Narrative* Problem Noted Date Resolved Date Foot pain, right 10/22/2011 06/22/2012 Diarrhea 04/08/2010 10/22/2011 Unspecified sinusitis (chronic) 02/01/2009 10/22/2011 Migraine without aura 04/07/2007 01/13/2008 documented as of this encounter (statuses as of 07/30/2022) [facility] History of Past illness Narrative* Problem Noted Date Resolved Date Foot pain, right 10/22/2011 06/22/2012 Diarrhea 04/08/2010 10/22/2011 Unspecified sinusitis (chronic) 02/01/2009 10/22/2011 Migraine without aura 04/07/2007 01/13/2008 documented as of this encounter (statuses as of 08/01/2022) [address]29-2011 History of Past illness Narrative* Problem Noted Date Resolved Date Foot pain, right 10/22/2011 06/22/2012 Diarrhea 04/08/2010 10/22/2011 Unspecified sinusitis (chronic) 02/01/2009 10/22/2011 Migraine without aura 04/07/2007 01/13/2008 documented as of this encounter (statuses as of 08/03/2022) [facility] History of Past illness Narrative* Problem Noted Date Resolved Date Foot pain, right 10/22/2011 06/22/2012 Diarrhea 04/08/2010 10/22/2011 Unspecified sinusitis (chronic) 02/01/2009 10/22/2011 Migraine without aura 04/07/2007 01/13/2008 documented as of this encounter (statuses as of 08/26/2022) [facility]2011 History of Past illness Narrative* Problem Noted Date Resolved Date Foot pain, right 10/22/2011 06/22/2012 Diarrhea 04/08/2010 10/22/2011 Unspecified sinusitis (chronic) 02/01/2009 10/22/2011 Migraine without aura 04/07/2007 01/13/2008 documented as of this encounter (statuses as of 09/08/2022) [facility]2011 History of Past illness Narrative* Problem Noted Date Resolved Date Foot pain, right 10/22/2011 06/22/2012 Diarrhea 04/08/2010 10/22/2011 Unspecified sinusitis (chronic) 02/01/2009 10/22/2011 Migraine without aura 04/07/2007 01/13/2008 documented as of this encounter (statuses as of 10/16/2022) [facility] History of Past illness Narrative* Problem Noted Date Resolved Date Foot pain, right 10/22/2011 06/22/2012 Diarrhea 04/08/2010 10/22/2011 Unspecified sinusitis (chronic) 02/01/2009 10/22/2011 Migraine without aura 04/07/2007 01/13/2008 documented as of this encounter (statuses as of 10/27/2022) [facility] History of Past illness Narrative* Problem Noted Date Resolved Date Foot pain, right 10/22/2011 06/22/2012 Diarrhea 04/08/2010 10/22/2011 Unspecified sinusitis (chronic) 02/01/2009 10/22/2011 Migraine without aura 04/07/2007 01/13/2008 documented as of this encounter (statuses as of 10/28/2022) [facility] History of Past illness Narrative* Problem Noted Date Resolved Date Foot pain, right 10/22/2011 06/22/2012 Diarrhea 04/08/2010 10/22/2011 Unspecified sinusitis (chronic) 02/01/2009 10/22/2011 Migraine without aura 04/07/2007 01/13/2008 documented as of this encounter (statuses as of 11/04/2022) [facility] History of Past illness Narrative* Problem Noted Date Resolved Date Foot pain, right 10/22/2011 06/22/2012 Diarrhea 04/08/2010 10/22/2011 Unspecified sinusitis (chronic) 02/01/2009 10/22/2011 Migraine without aura 04/07/2007 01/13/2008 documented as of this encounter (statuses as of 04/15/2023) [facility] History of Past illness Narrative* Problem Noted Date Diagnosed Date Resolved Date Foot pain, right 10/22/2011 06/22/2012 Diarrhea 04/08/2010 10/22/2011 Unspecified sinusitis (chronic) 02/01/2009 10/22/2011 Migraine without aura 04/07/20072007 documented as of this encounter (statuses as of 08/29/2023) [facility] Essential hypertension- Primary Unspecified essential hypertension Mixed hyperlipidemia Hypothyroidism (acquired) Unspecified hypothyroidism Migraine without aura and without status migrainosus, not intractable Migraine without aura, without mention of intractable migraine without mention of status migrainosus Class 1 obesity due to excess calories without serious comorbidity with body mass index (BMI) of 33.0 to 33.9 in adult Age-related osteoporosis without current pathological fracture Senile osteoporosis Diarrhea, unspecified type [facility] Diagnosis Rash- Primary Rash and other nonspecific skin eruption [facility] Diagnosis Burning with urination- Primary Dysuria documented in this encounter [facility] note* Diagnosis Urinary frequency- Primary documented in this encounter [facility] note* Diagnosis Urinary frequency- Primary Recurrent UTI (urinary tract infection) Urinary tract infection, site not specified Recurrent Clostridioides difficile infection documented in this encounter [facility] note* Diagnosis Medicare annual wellness visit, subsequent- Primary Routine general medical examination at a health care facility Essential hypertension Unspecified essential hypertension Mixed hyperlipidemia Hypothyroidism (acquired) Unspecified hypothyroidism Migraine without aura and without status migrainosus, not intractable Migraine without aura, without mention of intractable migraine without mention of status migrainosus Varicose veins of both lower extremities, unspecified whether complicated Class 1 obesity due to excess calories without serious comorbidity with body mass index (BMI) of 33.0 to 33.9 in adult OAB (overactive bladder) Hypertonicity of bladder Age-related osteoporosis without current pathological fracture Senile osteoporosis Advance directive discussed with patient Other specified counseling Encounter for screening mammogram for breast cancer documented in this encounter [facility] note* Diagnosis Dysuria- Primary documented in this encounter [facility] note* Diagnosis Age-related osteoporosis without current pathological fracture Senile osteoporosis documented in this encounter [facility] note* Diagnosis Essential hypertension- Primary Unspecified essential hypertension Mixed hyperlipidemia Chronic diarrhea Diarrhea Hypothyroidism (acquired) Unspecified hypothyroidism Frequent UTI Urinary tract infection, site not specified Rash Rash and other nonspecific skin eruption documented in this encounter [facility] note* Diagnosis Age-related osteoporosis without current pathological fracture Senile osteoporosis documented in this encounter [facility] for referral (narrative)* Diagnostic Procedure Only (Routine) - Pending Review Specialty Diagnoses / Procedures Referred By Osmany jama Referred To Contact [facility] Diagnoses Encounter for screening mammogram for breast cancer Procedures ZULEIKA SCREENING W KATY SCREENING DIGITAL BREAST TOMOSYNTHESIS BI SCREENING MAMMOGRAPHY BI 2-VIEW BREAST INC CAD Hugh Yip MD [address] [place] [address] [facility] [address] [place] [address] Referral ID Status Reason Start Date Expiration Date Visits Requested Visits Authorized [id number] Pending Review Auto-Generat ed Referral 2 11/13/2023 1 1 [facility] Advance Directives No Advanced Directives Records FoundDocuments on File Type Date Recorded 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 Advance Directive(s) 06/05/2019 1:27 PM Advance Directive(s) 11/21/2008 7:15 PM Documents on File Type Date Recorded 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 Advance Directive(s) 06/05/2019 1:27 PM Advance Directive(s) 11/21/2008 7:15 PM Documents on File Type Date Recorded 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 Advance Directive(s) 11/21/2008 7:15 PM Documents on File Type Date Recorded 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 Advance Directive(s) 11/21/2008 7:15 PM Reason for Referral Specialty Diagnoses / Procedures Referred By Conteduardo t Referred To Contact Samir Sahni PA-C [address] [place] [address] Referral ID Status Reason Start Date Expiration Date Visits Re quested Visits Authorized [id number] Closed 1 1 Specialty Diagnoses / Procedures Referred By Contac t Referred To Contact Urology Diagnoses Recurrent UTI (urinary tract infection) Recurrent Clostridioides difficile infection Procedures CONSULT TO UROLOGY OFFICE/OUTPATIENT NEW HIGH MDM 60-74 MINUTES Michael Snell MD [address] [place] [address] Referral ID Status Reason Start Date Expiration Date Visits Requested Visits Authorized [id number] Authorized PCP Requested Referral 07/30/2022 07/30/2023 1 1 Summary Purpose Family History No Family History Records Found Additional Source Comments Source Comments (unrecognize d section and content) In the event this informatio n is protected by the Federal Confidentiality of Alcohol and Drug Abuse Patient Records regulations: The Federal rules restrict any use of the information to criminally investigate or prosecute any alcohol or drug abuse patient.[facility] the event this information is protected by the Federal Confidentiality of Alcohol and Drug Abuse Patient Records regulations: The Federal rules restrict any use of the information to criminally investigate or prosecute any alcohol or drug abuse patient.[facility] the event this information is protected by the Federal Confidentiality of Alcohol and Drug Abuse Patient Records regulations: The Federal rules restrict any use of the information to criminally investigate or prosecute any alcohol or drug abuse patient.[facility] the event this information is protected by the Federal Confidentiality of Alcohol and Drug Abuse Patient Records regulations: The Federal rules restrict any use of the information to criminally investigate or prosecute any alcohol or drug abuse patient.[facility] HealthcareIn the event this information is protected by the Federal Confidentiality of Alcohol and Drug Abuse Patient Records regulations: The Federal rules restrict any use of the information to criminally investigate or prosecute any alcohol or drug abuse patient.[facility] the event this information is protected by the Federal Confidentiality of Alcohol and Drug Abuse Patient Records regulations: The Federal rules restrict any use of the information to criminally investigate or prosecute any alcohol or drug abuse patient.[facility] the event this information is protected by the Federal Confidentiality of Alcohol and Drug Abuse Patient Records regulations: The Federal rules restrict any use of the information to criminally investigate or prosecute any alcohol or drug abuse patient.[facility] the event this information is protected by the Federal Confidentiality of Alcohol and Drug Abuse Patient Records regulations: The Federal rules restrict any use of the information to criminally investigate or prosecute any alcohol or drug abuse patient.[facility] the event this information is protected by the Federal Confidentiality of Alcohol and Drug Abuse Patient Records regulations: The Federal rules restrict any use of the information to criminally investigate or prosecute any alcohol or drug abuse patient.[facility] the event this information is protected by the Federal Confidentiality of Alcohol and Drug Abuse Patient Records regulations: The Federal rules restrict any use of the information to criminally investigate or prosecute any alcohol or drug abuse patient.[facility]In the event this information is protected by the Federal Confidentiality of Alcohol and Drug Abuse Patient Records regulations: The Federal rules restrict any use of the information to criminally investigate or prosecute any alcohol or drug abuse patient.[facility] HealthcareIn the event this information is protected by the Federal Confidentiality of Alcohol and Drug Abuse Patient Records regulations: The Federal rules restrict any use of the information to criminally investigate or prosecute any alcohol or drug abuse patient.[facility] HealthcareIn the event this information is protected by the Federal Confidentiality of Alcohol and Drug Abuse Patient Records regulations: The Federal rules restrict any use of the information to criminally investigate or prosecute any alcohol or drug abuse patient.[facility] HealthcareIn the event this information is protected by the Federal Confidentiality of Alcohol and Drug Abuse Patient Records regulations: The Federal rules restrict any use of the information to criminally investigate or prosecute any alcohol or drug abuse patient.[facility] HealthcareIn the event this information is protected by the Federal Confidentiality of Alcohol and Drug Abuse Patient Records regulations: The Federal rules restrict any use of the information to criminally investigate or prosecute any alcohol or drug abuse patient.[facility] HealthcareIn the event this information is protected by the Federal Confidentiality of Alcohol and Drug Abuse Patient Records regulations: The Federal rules restrict any use of the information to criminally investigate or prosecute any alcohol or drug abuse patient.[facility] HealthcareIn the event this information is protected by the Federal Confidentiality of Alcohol and Drug Abuse Patient Records regulations: The Federal rules restrict any use of the information to criminally investigate or prosecute any alcohol or drug abuse patient.[facility] HealthcareIn the event this information is protected by the Federal Confidentiality of Alcohol and Drug Abuse Patient Records regulations: The Federal rules restrict any use of the information to criminally investigate or prosecute any alcohol or drug abuse patient.[facility] HealthcareIn the event this information is protected by the Federal Confidentiality of Alcohol and Drug Abuse Patient Records regulations: The Federal rules restrict any use of the information to criminally investigate or prosecute any alcohol or drug abuse patient.[facility] HealthcareIn the event this information is protected by the Federal Confidentiality of Alcohol and Drug Abuse Patient Records regulations: The Federal rules restrict any use of the information to criminally investigate or prosecute any alcohol or drug abuse patient.[facility] HealthcareIn the event this information is protected by the Federal Confidentiality of Alcohol and Drug Abuse Patient Records regulations: The Federal rules restrict any use of the information to criminally investigate or prosecute any alcohol or drug abuse patient.[facility] Reason for Visit (unrecogniz ed section and content) Reason Comments external CT results Reason Comments F/U 6 Month Reason Comments Results Reason Comments Insect Bite bilateral legs x 1 m onth, itching Reason Comments UTI pressure, burning, o artem x this AM Reason Comments Results Reason Comments Urinary Problem Frequency, burning w ith urination x 3 days. Reason Comments Urinary Problem Pt reported frequenc y, abd pressure, burning x3 days. Reason Comments Consult Dr Cadena Reason Comments Medicare Wellness Exam Reason Comments Patient Update Reason Comments 6 Month Exam Care Teams (unrecognized sec tion and content) Chief Medical Director Relationship Specialty Start Date End Date Hugh Yip MD [address] [place] [id number] PCP - General Family Practice 09/17/15 Chief Medical Director Relationship Specialty Start Date End Date uHgh Yip MD [address] [place] [address] PCP - General Family Practice 09/17/15 Chief Medical Director Relationship Specialty Start Date End Date Hugh Yip MD [address] [place] [id number] PCP - General Family Practice 09/17/15 Chief Medical Director Relationship Specialty Start Date End Date Hugh Yip MD [address] [place] [id number] PCP - General Family Practice 09/17/15 Chief Medical Director Relationship Specialty Start Date End Date Hugh Yip MD [address] [place] [id number] PCP - General Family Practice 09/17/15 Chief Medical Director Relationship Specialty Start Date End Date Hugh Yip MD [address] [place] [address] PCP - General Family Practice 09/17/15 Chief Medical Director Relationship Specialty Start Date End Date Hugh Yip MD [facility] [place] [address] PCP - General Family Practice 09/17/15 Chief Medical Director Relationship Specialty Start Date End Date Hugh Yip MD [address] [place] [address], [place] [address] PCP - General Family Practice 09/17/15 Chief Medical Director Relationship Specialty Start Date End Date Hugh Yip MD [address] [place] [address], [place] [address] PCP - General Family Practice 09/17/15 Chief Medical Director Relationship Specialty Start Date End Date Hugh Yip MD [address] [place] [address], [place] [address] PCP - General Family Medicine 09/17/15 Chief Medical Director Relationship Specialty Start Date End Date Hugh Yip MD [address] [place] [address], [place] [address] PCP - General Family Medicine 09/17/15 Chief Medical Director Relationship Specialty Start Date End Date Hugh Yip MD [address] [place] [address], [place] [address] PCP - General Family Medicine 09/17/15 Chief Medical Director Relationship Specialty Start Date End Date Hugh Yip MD [address] [place] [address], [place] [address] PCP - General Family Medicine 09/17/15 Chief Medical Director Relationship Specialty Start Date End Date Hugh Yip MD [address] [place] [address], [place] [address] PCP - General Family Medicine 09/17/15 Chief Medical Director Relationship Specialty Start Date End Date Hugh Ypi MD [address] [place] [address] PCP - General Family [facility] 09/17/15 Chief Medical Director Relationship Specialty Start Date End Date Hugh Yip MD [address] [place] [address] PCP - General Family [facility] 09/17/15 Chief Medical Director Relationship Specialty Start Date End Date Hugh Yip MD [address] [place] [address] PCP - General [facility] 09/17/15 Chief Medical Director Relationship Specialty Start Date End Date Hugh Yip MD [address] [place] [address] PCP - General Family [facility] 09/17/15 Chief Medical Director Relationship Specialty Start Date End Date Hugh Yip MD [address] [place] [address] PCP - General Family [facility] 09/17/15 Chief Medical Director Relationship Specialty Start Date End Date Hugh Yip MD [address] [place] [address] PCP - General Family [facility] 09/17/15 INFORMATION SOURCE (unrecogn ized section and content) FOR RECORDS PERTAINING TO PATIENTS WHO ARE OR HAVE BEEN ENROLLED IN A CHEMICAL DEPENDENCY/SUBSTANCEABUSE PROGRAM, SOME INFORMATION MAY BE OMITTED. This clinical summary was aggregated from multiple sources. Caution should be exercised in using it in the provision of clinical care. This summary normalizes information from multiple sources, and as a consequence, information in this document may materially change the coding, format and clinical context of patient data. In addition, data may be omitted in some cases. CLINICAL DECISIONS SHOULD BE BASED ON THE PRIMARY CLINICAL RECORDS. [facility] [employer] provides no warranty or guarantee of the accuracy or completeness of information in this document.
== END | disposition home or self-care (01) ==
LOC: OPBI 11:45
PROVIDERS: PCP Family Medicine; Referring Provider Family Medicine; Visit Provider Family Medicine
DX: Z12.31 Encounter for screening mammogram for malignant neoplasm of breast (principal)
CPT/HCPCS: 77063; 77067

== ENCOUNTER → 2025-01-02 | Outpatient (CLI) | payer MEDICARE, OTHER, SELFPAY ==
--- NOTE | 2025-01-02 13:10 | BI_ITS ---
PROCEDURE: SCRN MAMM (CAD)W/KATY BILAT REASON FOR EXAM: F, Age 79 y/o , SCREENING. No family history of breast cancer. TECHNIQUE: Bilateral screening digital breast tomosynthesis with 2D and 3D images. Computer aided detection. COMPARISON: 11/16/2023 FINDINGS: There are scattered areas of fibroglandular density. No suspicious masses, areas of developing architectural distortion, or suspicious calcifications. BI/SCRN MAMM (CAD)W/KATY BILAT IMPRESSION: There is no mammographic evidence of malignancy. BI-RADS 1: NEGATIVE. RECOMMEND ANNUAL MAMMOGRAPHIC SCREENING. Follow-up code: Routine Follow-up The patient will be notified of the results by letter. Reading Location: [id number]
== END | disposition home or self-care (01) ==
LOC: OPBI 13:08
PROVIDERS: PCP Family Medicine; Referring Provider Family Medicine; Visit Provider Family Medicine
DX: Z12.31 Encounter for screening mammogram for malignant neoplasm of breast (principal)
CPT/HCPCS: 77063; 77067